=== PATIENT | male | born 1970 | race Caucasian/White ===

== ENCOUNTER → 2019-10-18 11:07 | Outpatient (CLI) | payer OTHER, SELFPAY ==
[2019-10-18 12:56] LABS: Absolute Lymphocyte Count 1.69 X10^3/uL (0.83-4.51); Absolute Neutrophil Count 3.1 X10^3/uL (2.0-7.7); Basophil# 0.03 X10^3/uL; Basophil% 0.5 % (0-1); Eosinophil# 0.11 X10^3/uL; Eosinophils% 1.9 % (0-5); Hematocrit 48.2 % (40-54); Hemoglobin 16.2 g/dL (13.0-16.5); Lymphocyte # 1.69 X10^3/ul (4.0); Lymphocyte % 29.5 % (19-41); Mean Corp Hgb Conc 33.6 g/dL (32-36); Mean Corpuscular Hgb 31.3 pg (27.0-32.0); Mean Corpuscular Volume 93.1 fL (80-94); Mean Platelet Vol. 9.5 fl (6.2-12.0); Monocyte# 0.77 X10^3/uL; Monocyte% 13.4 % (0-10); NRBC Flagged by Analyzer 0 % (0-5); Neutrophil # 3.12 X10^3/uL (2.7-7.7); Neutrophil % 54.5 % (47-70); Platelet Count 238 K/mm3 (150-450); RBC Distribution Width CV 12.9 % (11.6-14.6); Red Blood Count 5.18 M/mm3 (4.6-6.2); White Blood Count 5.7 K/mm3 (4.4-11.0)
[2019-10-18 13:20] LABS: Cholesterol 254 mg/dL (200); Creatinine, Serum 1.15 mg/dL (0.70-1.30); EST Glomerular Filtration Rate 72 mL/min (>60); Est Glom Filt Rate - Afr Amer 87 mL/min (>60); High Density Lipoprotein 53 mg/dL; Triglycerides 136 mg/dL; Very Low Density Lipoprotein 27 mg/dL (5-40)
== END ==
PROVIDERS: PCP Family Medicine; Referring Provider Family Medicine; Visit Provider Family Medicine
DX: Z00.00 Encounter for general adult medical examination without abnormal findings (principal)
CPT/HCPCS: 36415; 80061; 82565; 85025

== ENCOUNTER → 2022-10-22 | Outpatient (CLI) | payer OTHER, SELFPAY ==
--- NOTE | 2022-10-22 10:33 | RAD_ITS ---
STUDY: X-RAY CHEST REASON FOR EXAM: Male, 51 years old. COUGH TECHNIQUE: PA and lateral views of the chest. COMPARISON: None. FINDINGS: There is evidence of a left hilar mass with postobstructive pneumonitis in the left upper lobe. Correlation with a CT scan is recommended. There is no demonstrated pleural abnormality. Normal size heart. Normal mediastinum and amaris. Normal visualized pulmonary arteries. Normal visualized aortic arch and descending thoracic aorta. Normal visualized thoracic spine. Normal visualized ribs, clavicles, and shoulders. There is no demonstrated abnormality of the visualized soft tissue structures of the upper abdomen. RAD/Chest PA and Lateral IMPRESSION: Findings suggestive of a left hilar mass with postobstructive pneumonitis in the left upper lobe. CT scan correlation is recommended. Electronically Signed: Mazin Garber MD at 8:12 EDT ,
== END | disposition home or self-care (01) ==
LOC: MTRAD 10:32
PROVIDERS: PCP Family Medicine; Referring Provider Family Medicine; Visit Provider Family Medicine
DX: R05.3 Chronic cough (principal)
CPT/HCPCS: 71046

== ENCOUNTER → 2022-11-06 | Outpatient (CLI) | payer OTHER, SELFPAY ==
--- NOTE | 2022-11-06 14:17 | PFTCOMP_ITS ---
COMPLETE PULMONARY FUNCTION TEST INTERPRETATION Brief HPI: Patient is a 52-year-old male, currently under the care of Dr. Bee, who presents to [facility] for complete pulmonary function tests secondary to diagnosis of lung mass. Respiratory therapist reports good effort and reproducible results. Interpretation: Forced expiration spirometry shows no large airways obstructive ventilatory defect with an FEV1 of 78% predicted. There is no significant bronchodilator response by strict ATS criteria. Spirograms are of good quality and plateau normally. The respiratory flow volume loop shows a normal pattern. Lung volumes by body plethysmography show a slightly decreased total lung c apacity at 5.71 L, 81% predicted. All other lung volumes are reduced symmetrically. Diffusion capacity by carbon monoxide is normal at 101% predicted. The airway resistance is normal. No previous pulmonary function tests were available for review. Impression: Mild restrictive ventilatory defect with relatively preserved diffusion capacity
== END | disposition home or self-care (01) ==
LOC: PSN 08:12
PROVIDERS: PCP Family Medicine; Referring Provider Internal Medicine; Visit Provider Internal Medicine
DX: E27.8 Other specified disorders of adrenal gland (principal); R91.8 Other nonspecific abnormal finding of lung field; R05.3 Chronic cough; J45.909 Unspecified asthma, uncomplicated
CPT/HCPCS: 94060; 94726; 94729

== ENCOUNTER → 2022-11-13 | Outpatient (CLI) | payer OTHER, SELFPAY ==
[2022-11-13] VITALS (10 sets, daily range): BP systolic 116–144; BP diastolic 79–107; PULSE 83–94; RESP 14–28; TEMP 36.2; O2SAT 94–98; BMI 30.2
--- NOTE | 2022-11-13 | ASPIGT_PTH ---
PATIENT: BASILIO GOSS LOC: [place] U#:[id number] AGE/SX: 52/M ROOM: RE11/13/[address]: Dr. Denis Bee MD : 1970 BED: DIS: 11/13/2022 SPEC #: [id number] RECD: 11/13/22 11:37 STATUS: ARAM REÁlvaro #: [id number] ARSALAN: 11/13/22 00:[address]: Denis Bee DEPT: SURGICAL PATHOLOGY RECD BY: Praful Cisneros ENTERED: 11/13/22 11:38 SP TYPE: ASP RAD OTHR DR: Dr. Av Barros MD Tissues: Adrenal gland, NOS Procedures: FNA Specimen Adequacy Special Stain Group II Surgery Specimen Level IV Imprint (control) HEADER OPERATION: Right adrenal mass, CT-guided biopsy PRE-OP DIAGNOSIS: Adrenal mass TISSUE SUBMITTED: Adrenal mass MICROSCOPIC DIAGNOSIS Adrenal mass, CT-guided core biopsy: Non-small cell carcinoma with extensive necrosis, favor metastatic adenocarcinoma, consistent with lung primary. See comment. SJ:joceline 11/14/2022 COMMENT The specimen is evaluated at the time of biopsy by Dr. Witt. Immediate Evaluation = Malignant cells present derived from non-small cell carcinoma. Extensive necrosis is also noted. Correlation with clinical, radiologic findings and appropriate follow up are necessary. Immunohistochemistry ([id number]) supports the above diagnosis. Molecular studies on the tumor can be performed, please notify the laboratory, if needed. Case has been reviewed in consultation with Dr. Watson who concurs with the above diagnosis. IDC:AM MICROSCOPIC DESCRIPTION Slides are reviewed. GROSS DESCRIPTION Received in fixative is one container labeled with the patient's name and designated adrenal mass. The specimen consists of multiple irregular and elongated fragments of cuello soft that in aggregate measure 1.2 x 0.3 x <0.1 cm. The specimen is totally submitted in one cassette. / AM:joceline 11/13/2022 TC:0 [facility]: [id number], [id number] ADDENDUM ADDENDUM ADDENDUM ADDENDUM ADDENDUM ADDENDUM ADDENDUM ADDENDUM ADDENDUM ADDENDUM ADDENDUM ADDENDUM 12/09/2022 12:06 ADDENDUM 12/09/2022 12:06 ADDENDUM 12/09/2022 12:06 ADDENDUM 12/09/2022 12:06 ADDENDUM 12/09/2022 12:06 PD-L1 (KEYTRUDA) IMMUNOHISTOCHEMICAL ANALYSIS FROM [employer] RESULTS: Tumor proportion score: <1% / Negative ONKOSIGHT NGS GENE FUSION PANEL FROM [employer] INTERPRETATION: NEGATIVE: No pathogenic gene fusions detected involving ALK, EVELYN, BRAF, CCND1, EGFR, FGFR1, FGFR2, FGFR3, MET, NRG1, NTRK1, NTRK2, NTRK3, PPARG, RAF1, RET, ROS1 or THADA. Please see complete report in e-chart or EMR
--- NOTE | 2022-11-13 | IMM_PTH ---
PATIENT: BASILIO GOSS LOC: [place] U#:[id number] AGE/SX: 52/M ROOM: RE11/13/[address]: Dr. Denis eBe MD : 1970 BED: DIS: 11/13/2022 SPEC #: [id number] RECD: 11/13/22 13:43 STATUS: ARAM REQ #: [id number] ARSALAN: 11/13/22 00:[address]: Denis Bee DEPT: IMMUNOHISTOCHEMISTRY RECD BY: Ondina Farrell ENTERED: 11/13/22 13:44 SP TYPE: IMMUNO OTHR DR: Dr. Av Barros MD Tissues: Adrenal gland, NOS Procedures: RCC (add) NAPSIN A (add) CK20 (add) CK5-6 (add) CK7 (add) CK8 (add) HEP PAR (add) TTF1 (add) Pankeratin (initial) P40 (add) PSAP (add) PHYSICIAN & [address] [id number] SPECIMEN INFORMATION: Tissue Source: Right adrenal mass Clinical Info: Right adrenal mass Specimen Number: [id number] CPT code: 27860, 56312 x10 METHODOLOGY: Deparaffinized sections of prefer/formalin-fixed tissue or PAP/DQ stained slides are incubated with monoclonal/polyclonal antibodies/oligonucleotide probes. Localization is made via biotin free immunoperoxidase method. Appropriate controls are performed and reacted as expected. Results on target cell population are indicated in the following table: RESULTS: ANTIBODY / CLONE RESULT AE1-3 (AE1/AE3/PCK26) positive CK7 (OV-TL12/30) positive, rare cells CK8 (48xvrjD85) positive CK20 (KS20.8) negative TTF-1 (8G7G3/1) positive Napsin A (Rabbit Polyclonal) negative HepPar (OCh1E5) negative RCC (PN-15) negative PSAP (PASE/4LJ) negative CK5-6 (D5 & 1684) negative P40 (BC28) positive, rare cells These tests were developed and their performance characteristics determined by [facility]. They may not have been cleared or approved by the U.S. Food and Drug Administration. The FDA has determined that such clearance or approval is not necessary. The above immunohistochemical/dualISH markers are ordered and reviewed by the Pathologist. INTERPRETATION: Right adrenal mass, CT-guided biopsy: Non-small cell carcinoma with extensive necrosis, favor adenocarcinoma consistent with lung primary. SJ:joceline 11/14/2022 Case has been reviewed in consultation with Dr. Watson who concurs with the above diagnosis. IDC:[id number]
[2022-11-13 09:13] LABS: Platelet Count 306 K/mm3 (150-450)
--- NOTE | 2022-11-13 09:14 | CT_ITS ---
PROCEDURE: CT GUIDED biopsy of the right adrenal gland. DATE: November 13, 2022. INDICATION: Male, 52 years old. Right adrenal mass. PHYSICIAN: Mazin Garber M.D. RADIATION DOSAGE (If Supplied By Facility): CTDIvol = ( 20.38 ) mGy, DLP = ( 837.7 ) mGycm. Individualized dose optimization techniques were utilized. PROCEDURE: The risks, benefits, and alternatives to the procedure were explained to the patient. The specific risk of hemorrhage requiring further treatment or intervention was detailed and accepted. Follow-up instructions were discussed with the patient as well. Written informed consent was obtained. The patient was brought into the CT suite and placed in the supine position. . An appropriate entry site was identified. The overlying skin was prepped and draped in the usual sterile fashion. 1% lidocaine was administered subcutaneously for local anesthesia. Conscious sedation was performed. The patient received 3 mg of Versed and 75 mcg of fentanyl intravenously. Conscious sedation was started at 10:44 AM and terminated at 11:23 AM. The patient was independently monitored by the department nurse. Under CT guidance, a total of 5 passes were performed utilizing an 18-gauge core biopsy needle. The specimens were then placed in the appropriate fluid and transported to the laboratory for analysis. Hemostasis was obtained. The patient tolerated the procedure well without immediate complications. CT/Biopsy/Inj or Needle Placement IMPRESSION: Successful CT guided biopsy of the right adrenal gland, as described above. The conscious sedation protocol was followed. Electronically Signed: Mazin Garber MD at 12:33 EDT ,
[2022-11-13 09:22] LABS: International Normalized Ratio 1.1; Prothrombin Time (Protime)PT. 13.7 SECONDS (11.7-14.9)
[2022-11-13 09:23] LABS: Partial Thromboplast Time 34.9 Seconds (24.1-36.2)
[2022-11-13] MEDS: Midazolam 2 MG/2 ML Syringe IV ×2 (10:44→11:12)
[2022-11-13] MEDS: fentaNYL 100 MCG/2 ML Ampul IV ×3 (10:46→11:18)
[2022-11-13] MEDS: Lidocaine 2% (20 ml mdv) 20 ML Vial INFILT (11:12)
== END | disposition home or self-care (01) ==
PROVIDERS: PCP Family Medicine; Referring Provider Internal Medicine; Visit Provider Internal Medicine
DX: E27.8 Other specified disorders of adrenal gland (principal); R91.8 Other nonspecific abnormal finding of lung field; R05.3 Chronic cough
CPT/HCPCS: 49180; 36415; 77012; 85049; 85610; 85730; 88172; 88305; 88313; 88341; 88342; 99156; 99157; J7050; A4216

== ENCOUNTER → 2022-12-18 | Outpatient (CLI) | payer OTHER, SELFPAY ==
--- NOTE | 2022-12-18 12:38 | MRI_ITS ---
HISTORY: STAGING NSCLC. TECHNIQUE: Multiplanar and multisequence MR images of the brain were obtained before and after the intravenous administration of 20 mL Clariscan. 692 images. COMPARISON: None. FINDINGS: BRAIN PARENCHYMA: 3 x 5 mm nodular enhancing lesion with mild surrounding edema in the right occipital lobe best seen on image 4 of series 11 and image 53 of series 12. No abnormal focus of restricted diffusion. No acute intracranial hemorrhage identified. CSF SPACES: Cerebral ventricles, cortical sulci, and other extra-axial CSF spaces within normal limits in size for age. No significant midline shift or other mass effect.No extra-axial fluid collection. VASCULAR SYSTEM: Major intracranial flow voids are maintained. PARANASAL SINUSES AND MASTOID AIR CELLS: No significant air fluid levels. ORBITS: Symmetric contents. MRI/Brain W/WO Contrast IMPRESSION: Small enhancing lesion in the right occipital lobe, suspicious for metastasis. Electronically Signed: Nimco Hilario MD at 13:56 EDT ,
== END | disposition home or self-care (01) ==
LOC: MRI 12:37
PROVIDERS: PCP Family Medicine; Referring Provider Internal Medicine Hematology & Oncology; Visit Provider Internal Medicine Hematology & Oncology
DX: C34.92 Malignant neoplasm of unspecified part of left bronchus or lung (principal); C79.70 Secondary malignant neoplasm of unspecified adrenal gland; C34.12 Malignant neoplasm of upper lobe, left bronchus or lung; C77.9 Secondary and unspecified malignant neoplasm of lymph node, unspecified
CPT/HCPCS: 70553; A9575

== ENCOUNTER 2022-12-25 09:21 | Day surgery (SDC) | payer OTHER, SELFPAY ==
[2022-12-25 09:42] VITALS: BP 160/108; PULSE 117; RESP 16; TEMP 36.7; O2SAT 96; BMI 27.6
[2022-12-25] MEDS: Lactated Ringers 1,000 ML 15 ML IV (10:06)
--- NOTE | 2022-12-25 10:11 | HP.PCM_ITS ---
History and Physical Date of Admission: 12/25/22 Date of Service:? 12/13/22 MR#: [id number] Acct: [id number] Name:BASILIO GAYLE Rep #: [id number] : 1970 ? ? Provider: Dr. Pratima Atkins MD Age/Sex:? 52/M ? ? Location: [facility] Status: Signed Intake Vital Signs ? 12/13/2314:05 Height 5 ft 11 in Weight: 207 lb BMI 28.8 BP 141/87 H Blood Pressure Location Lt brachial Position Sitting Respiration 16 Pulse 110 H Pulse Oximetry (%) 96 Oxygen Delivery Method room air Intake Visit Reasons:?PORT PLACEMENT Chief Complaint: port placement [employer] Required: No Is patient in pain?: No Allergies No Known Allergies Allergy (Verified 12/13/22 15:06) Medications dexamethasone 4 mg tablet 4 mg PO .COMPLEX #6 tabs 12/11/22 [Rx Confirmed 12/13/22] folic acid 1 mg tablet 1 mg PO DAILY #90 tabs 12/11/22 [Rx Confirmed 12/13/22] ibuprofen 200 mg tablet (Advil) 200 mg PO Q6H PRN 12/11/22 [History Confirmed 12/13/22] lidocaine-prilocaine 2.5 %-2.5 % topical cream 1 applic topical ONCE PRN port access 30 days #30 grams 12/11/22 [Rx Confirmed 12/13/22] omeprazole 20 mg capsule,delayed release 20 mg PO DAILY #30 caps 12/11/22 [Rx Confirmed 12/13/22] ondansetron 8 mg disintegrating tablet 8 mg PO Q8H PRN nausea and vomiting #30 tabs 12/11/22 [Rx Confirmed 12/13/22] PFSH Medical History? Adenocarcinoma of lung, stage 4 Apnea, sleep Arthritis Asthma Benign skin mole Cancer of left lung Chest pain Chondrosternal sprain Chronic coughing Diastolic hypertension Encounter for education Fatty tumor Hypercholesteremia Keratosis pilaris Lipoma Low serum HDL 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 to bone Regional lymph node metastasis present Family History? Aunt Cancer ?? ? paternal - unknown typeSister Lymphoma ?? ? T-cell Non Hodgkin's Social History? household members:? spouse Smoking Status:? Former smoker Tobacco: How many years used:? 8 how long ago did patient quit smoking:? quit 30 years ago HPI HPI HPI: 52-year-old male presents to discuss port placement due to stage IV adenocarcinoma of the lung.? Patient's treatment is planned to start on December 26.? Patient would like to have port placed after if possible. ROS General General: Yes weight change; No appetite, fatigue, colon cancer, breast cancer or weakness HEENT HEENT: No difficulty swallowing, eye injury, eye surgery, swollen glands or hoarseness Endo Endocrine: No thyroid disease, diabetes mellitus, thyroid cancer, Hair loss, heat intolerance or cold intolerance Skin Skin: No rash or changing moles Breast Breast: No left breast lump, right breast lump, nipple discharge, breast pain, abnormal mammogram, abnormal US or breast enlargement Musc Musculoskeletal: Yes back problems; No arthritis, rheumatoid arthritis, gout or joint pain Cardio Cardiovascular: No murmur, pacemaker, heart disease, atrial fibrillation, high blood pressure, heart attack, heart stent, palpitations, shortness of breat with exertion or chest pain Psych Psychiatric: No depression, anxiety or hearing voices Resp Respiratory: Yes shortness of breath, Yes sleep apnea, Yes cough, No COPD, No asthma, No emphysema and No wheezing Gastro Gastrointestinal: No abdominal pain, No nausea or vomiting, No diarrhea, No constipation, No blood in stool, No acid reflux, No hemorrhoids, No ulcers, No gallbladder problem and No black,tarry stools Kin Hematologic: No blood thinners, No blood disorders, No bleeding, No anemia and No blood clots Neuro Neurologic: No system reviewed and no additional complaints, except as documented, No as per HPI, No abnormal gait, No abnormal hearing, No abnormal movements, No abnormal speech, No behavioral changes, No burning sensations, No confusion, No convulsions, No disequilibrium, No dizziness, No localized weakness, No frequent falls, No headache(s), No lack of coordination, No loss of vision, No memory loss, No numbness, No other visual disturbances, No radicular pain, No restless legs, No sensory deficit, No syncope, No tingling, No tremor(s), No weakness and No other Exam Const General: cooperative, healthy appearing and no acute distress [facility] Head: normal to inspection Neck Neck: supple Chest Other: Normal palpation to bilateral upper chest Resp Effort & Inspection: normal respiratory effort Cardio Rate: regular rate Skin General: no rashes or lesions noted Neuro General: patient oriented x3 Extrem General: no clubbing, cyanosis or edema Psych Affect: normal affect Assessment and Plan Assessment and Plan (1) Encounter for insertion of venous access port: ?Status:?Acute (2) Adenocarcinoma of lung, stage 4: ?Status:?Acute Plan I have discussed above with the patient- Port-a-Cath placement.? Left possible right IJ.? We will plan for after as patient does not start treatment until December 26. Patient has been counseled as to the risks/benefits of the procedure. I have explained the risks of the surgery, including but not limited to: infection, bleeding, injury to any blood vessels/nerves, injury to lungs (such as pneumothorax or hemothorax and need for chest tube), not having any access, nonfunctioning of port due to thrombosis, infection of port, etc.? the patient understands and agrees to proceed. I have answered all the patient's questions to the patient?s satisfaction and the patient has no further questions. Pratima Atkins M.D. Pager: [phone] [facility] [address] [place] [address], [address] [place] [address] Office: [phone] Coding Level of Care Code Off vis,new,level 3 Diagnoses Encounter for insertion of venous access port? Z45.2 Adenocarcinoma of lung, stage 4? C34.90 12/13/22 1516 <Electronically signed by Pratima Atkins MD> Date Pratima Atkins MD
--- NOTE | 2022-12-25 10:16 | EKG12_ITS ---
Test Reason : PRE-OP Blood Pressure : / mmHG Vent. Rate : 119 BPM Atrial Rate : 119 BPM P-R Int : 144 ms QRS Dur : 080 ms QT Int : 310 ms P-R-T Axes : 034 026 023 degrees QTc Int : 436 ms Sinus tachycardia Otherwise normal ECG When compared with ECG of 16-DEC-2011 20:18, Vent. rate has increased BY 43 BPM Confirmed by RASHARD VILLAGOMEZ, CHRISTINA ([id number]), avid editor KAREN VIZCARRA ([id number]) on 12/31/2022 9:10:08 AM Referred By: Pratima Atkins Confirmed By:CHRISTINA WETZEL MD
[2022-12-25] MEDS: Cefazolin 2 GM in 0.9% Normal Saline 100 ML IV (11:08)
[2022-12-25] MEDS: Bupivacaine Mpf 0.5% 30 ML VIAL (11:52)
[2022-12-25] MEDS: Lidocaine 1% /Epi 1:100 (20ml) 20 ML Vial OPERA.SITE (11:53)
--- NOTE | 2022-12-25 11:55 | PCM.OPRPT ---
Report of Operation Date of Procedure: 12/25/22 Pre-Operative Diagnosis: z45.2, metastatic lung cancer Post-Operative Diagnosis: Same Surgery/Procedure Performed:: 1. Placement of left IJ Port-A-Cath 2. Use of ultrasound 3. use of fluoroscopy Surgeon: Pratima Atkins Type of Anesthesia: Local MAC Anesthesiologist: Cong Bergeron Special Medications: Ancef 2 g IV x1 Specimen's removed: None Estimated Blood Loss (mL): < 10 cc Description of Procedure: After informed consent was given, the patient was brought to the operating room and placed in the supine position. Appropriate time out protocol was followed. Patient was then given IV conscious sedation for anesthesia. The patient's left upper chest and neck were then prepped with a surgical skin preparation and sterile surgical drapes were placed. After proper landmarks were ascertained, the skin at the upper left chest area was then infiltrated with 1:1 mixture of 1% lidocaine with epinephrine and 0.5% marcaine. A needle trocar was then inserted into the left I would internal jugular vein with ultrasound guidance-multiple vessels were viewed with u/s and the left IJ was chosen-- and there was good aspiration of venous blood. A wire was then threaded into the needle trocar and this was visualized under fluoroscopy to ensure that the wire was in the superior vena cava. Once this was done, then the needle trocar was removed. A small skin franky was made with an 11 blade knife at the wire entrance site. The dilator with the introducer sheath attached was then placed over the wire into the left internal jugular vein via the Seldinger technique and this was visualized under fluoroscopy. The dilator and sheath were in proper position as visualized by fluoroscopy. A subcutaneous pocket was then created caudad to the catheter insertion site. A transverse skin incision was made after the skin and subcutaneous tissues were infiltrated with local anesthetic. Blunt dissection was then used to create a space large enough for placement of the subcutaneous port. The catheter was then tunneled into the subcutaneous pocket. The wire and dilator were then removed. The catheter was then threaded into the introducer sheath and was positioned with its tip at the junction of the superior vena cava and the right atrium as visualized under fluoroscopy. The excess catheter was transected. The catheter was then attached to the subcutaneous port using manufacturers guidelines. The catheter was flushed with a heparin saline mixture prior to placement. Hemostasis was carefully controlled with electrocautery. The port was sutured to the subcutaneous fascia using 2-0 Vicryl suture at two sites. The port was then placed in the subcutaneous pocket. The incision were reapproximated with interrupted subdermal 3-0 vicryl sutures. The skin was reapproximated with 3-0 nylon suture in a interrupted fashion. Steristrips were used for reinforcement of the skin closure at IJ insertion site and a sterile opsite dressings were applied. Port was accessed prior to leaving the OR. Both ports flushed and tesha well. The patient tolerated the procedure well. Grafts/Implants Used: Bard PowerPort isp M.R.I. 8Fr Lot [id number] Complications none
--- NOTE | 2022-12-25 11:58 | DCINST_ITS ---
Discharge Instructions Procedure Port-A-Cath Diet Discharge Diet: Light diet - advance as tolerated Activity May shower in (days): 5 (Keep port site clean and dry x5 days. Neck incision okay to get wet after 1 day. Okay to lower shower and upper sponge bath. OR okay to taper off port site with a Ziploc bag to shower) Lifting Restrictions: No lifting > 15 pounds for 3 days with the arm on the side of the port Dressing / Incision Call your doctor if your incision/area has: Continuous Slow Oozing, Sudden Increased Bleeding, Increased Pain/ Swelling, Increased Redness, Foul Smelling Discharge and Swelling at the incision site Call your doctor if you observe: Fever of 101 or Higher Change Dressing in: 2 days (2-3 days- port site; ok to remove neck opsite in 1 day) Follow Up Care Please Follow Up With: Pratima Atkins MD When: In 10 days for permanent suture removal?call office for appointment Test Results: Test results from this visit will be discussed in further detail at your follow- up appointment, if applicable. Discharge Plan Admission Attending Provider: Pratima Atkins Primary Care Provider: Av Barros Discharge Orders/Prescriptions Prescriptions: New oxycodone-acetaminophen 5-325 mg tablet 1 tab PO Q6H PRN (Reason: pain) 2 Days Qty: 6 0RF Continued ibuprofen [Advil] 200 mg tablet 200 mg PO Q6H PRN (Reason: Pain) lidocaine-prilocaine 2.5-2.5 % cream 1 applic topical ONCE PRN (Reason: port access) 30 Days Qty: 30 2RF omeprazole 20 mg capsule,delayed release(DR/EC) 20 mg PO DAILY Qty: 30 0RF dexamethasone 4 mg tablet 4 mg PO .COMPLEX Qty: 6 5RF Rx Instructions: Take 4 mg orally; twice daily the day before, day of and day after chemoth erapy ONLY ondansetron 8 mg tablet,disintegrating 8 mg PO Q8H PRN (Reason: nausea and vomiting) Qty: 30 2RF folic acid 1 mg tablet 1 mg PO DAILY Qty: 90 1RF hydrocodone-acetaminophen 5-325 mg Tablet 1 tab PO Q6H PRN (Reason: Pain) albuterol sulfate 90 mcg/actuation Hfa Aerosol Inhaler 1 inh INHALATION Q6H PRN (Reason: SOB) tizanidine 4 mg Capsule 4 mg PO QHS Referrals / Follow Up: Av Barros MD [Primary Care Provider] - Disposition Disposition (needs filled in before D/C Order can be placed): Home, Self Care
[2022-12-25 12:06] VITALS: BP 144/98; BP 160/108; PULSE 116; RESP 16; TEMP 37.5; O2SAT 97
[2022-12-25 12:10] VITALS: BP 137/125; BP 160/108; PULSE 118; RESP 16; O2SAT 97
[2022-12-25 12:15] VITALS: BP 138/107; BP 160/108; PULSE 115; RESP 16; O2SAT 95
--- NOTE | 2022-12-25 12:15 | RAD_ITS ---
STUDY: X-RAY CHEST REASON FOR EXAM: Male, 52 years old. Port -- pacu TECHNIQUE: Single AP portable view of the chest. COMPARISON: Comparison is made with prior study dated October 22, 2022. FINDINGS: A left-sided shital catheter has been placed with the tip at the junction of the superior vena cava and right atrium. Near complete opacification of the left hemithorax. Normal size heart. Normal mediastinum and amaris. Normal visualized pulmonary arteries. Normal visualized aortic arch and descending thoracic aorta. Normal visualized thoracic spine. Healed right rib fractures. There is no demonstrated abnormality of the visualized soft tissue structures of the upper abdomen. RAD/Chest 1 View (Portable) IMPRESSION: The tip of the left shital catheter is at the junction of the superior vena cava and right atrium. Almost complete opacification of the left hemithorax. Electronically Signed: Mazin Garber MD at 12:35 EDT ,
[2022-12-25 12:20] VITALS: BP 152/106; BP 160/108; PULSE 118; RESP 16; TEMP 37.9; O2SAT 96
[2022-12-25 13:25] VITALS: BP 160/108
--- NOTE | 2022-12-25 13:25 | SUR.PHASEII ---
Per pt's family Dr. Atkins did not speak with family after surgery. Call made to Dr. Atkins who states she will call them afterwards.
== END 2022-12-25 13:20 | disposition home or self-care (01) ==
LOC: SDC 09:21 → AC 09:22
PROVIDERS: PCP Family Medicine; Referring Provider Surgery; Visit Provider Surgery
PROC: (CPT 36561; principal; 2022-12-25 10:45)
DX: Z45.2 Encounter for adjustment and management of vascular access device (principal); C34.90 Malignant neoplasm of unspecified part of unspecified bronchus or lung; Z87.891 Personal history of nicotine dependence; G47.30 Sleep apnea, unspecified
CPT/HCPCS: 36561; 00532; 71045; 77001; 93005; J7120; C1788; J2405

== ENCOUNTER → 2023-01-01 | Outpatient (CLI) | payer OTHER, SELFPAY | END | disposition home or self-care (01) | LOC: LABSPEC 16:28 | PROVIDERS: PCP Family Medicine; Referring Provider Surgery; Visit Provider Surgery | DX: T80.219A Unspecified infection due to central venous catheter, initial encounter (principal) | CPT/HCPCS: 87070; 87075; 87205 ==

== ENCOUNTER 2023-01-17 09:34 | Day surgery (SDC) | payer OTHER, SELFPAY ==
[2023-01-17] VITALS (7 sets, daily range): BP systolic 107–120; BP diastolic 71–88; PULSE 108–123; RESP 16–24; TEMP 36.2; O2SAT 89–94; BMI 25.2
[2023-01-17] MEDS: Lactated Ringers 1,000 ML 15 ML IV (10:29)
--- NOTE | 2023-01-17 11:21 | PCM.HP.BLA ---
History and Physical Date of Admission: 01/17/23 Date of Service:? 01/15/23 MR#: [id number] Acct: [id number] Name:BASILIO GAYLE Rep #: [id number] : 1970 ? ? Provider: Dr. Pratima Atkins MD Age/Sex:? 52/M ? ? Location: [facility] Status: Signed Intake Vital Signs ? 01/07/2309:41 01/15/2310:24 Height 5 ft 11 in 5 ft 11 in Weight: ? 182 lb BMI ? 25.4 BP ? 133/92 H Respiration ? 18 Pulse Oximetry (%) ? 96 Oxygen Delivery Method ? 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: No Is patient in pain?: No Allergies No Known Allergies Allergy (Verified 01/15/23 10:26) Medications dexamethasone 4 mg tablet 4 mg PO .COMPLEX #6 tabs 12/11/22 [Rx Confirmed 01/15/23] folic acid 1 mg tablet 1 mg PO DAILY #90 tabs 12/11/22 [Rx Confirmed 01/15/23] ibuprofen 200 mg tablet (Advil) 200 mg PO Q6H PRN Pain 12/11/22 [History Confirmed 01/15/23] lidocaine-prilocaine 2.5 %-2.5 % topical cream 1 applic topical ONCE PRN port access 30 days #30 grams 12/11/22 [Rx Confirmed 01/15/23] omeprazole 20 mg capsule,delayed release 20 mg PO DAILY #30 caps 12/11/22 [Rx Confirmed 01/15/23] ondansetron 8 mg disintegrating tablet 8 mg PO Q8H PRN nausea and vomiting #30 tabs 12/11/22 [Rx Confirmed 01/15/23] albuterol sulfate 90 mcg/actuation aerosol inhaler 1 inh inhalation Q6H PRN SOB 12/18/22 [History Confirmed 01/15/23] hydrocodone-acetaminophen 5-325mg 5mg-325mg 1 tab PO Q6H PRN Pain 12/18/22 [History Confirmed 01/15/23] oxycodone-acetaminophen 5 mg-325 mg tablet 1 tab PO Q6H PRN pain 2 days #6 tabs 12/25/22 [Rx Confirmed 01/15/23] acyclovir 800 mg tablet 800 mg PO Q6H #60 tabs 01/07/23 [Rx Confirmed 01/15/23] fentanyl 12 mcg/hr transdermal patch 1 patch transdermal 01/15/23 [History Confirmed 01/15/23] PFSH Medical History? Adenocarcinoma of lung, stage 4 Alcohol use Apnea, sleep Arthritis Asthma Back pain Benign skin mole Cancer of left lung Chondrosternal sprain Chronic coughing CINV (chemotherapy-induced nausea and vomiting) Diastolic hypertension Encounter for education Fatty tumor Former smoker Herpes zoster Hoarseness Hypercholesteremia Hyponatremia Keratosis pilaris Lipoma Low serum HDL Maculopapular rash 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 Rapid weight loss Regional lymph node metastasis present Shortness of breath on exertion Stomatitis Family History? Aunt Cancer ?? ? paternal - unknown typeSister Lymphoma ?? ? T-cell Non Hodgkin's Social History? household members:? spouse Smoking Status:? Former smoker Tobacco: How many years used:? 8 how long ago did patient quit smoking:? quit 30 years ago HPI HPI HPI: 52-year-old male presents for suture removal after port removal due to possible infection.? Patient is scheduled to have chemotherapy tomorrow.? Patient states he does not want to go through with chemotherapy through peripherally and wants a port placed prior to that.? Patient's culture did not show any growth organisms question. ROS General General: No weight change, appetite, fatigue, colon cancer, breast cancer or weakness HEENT HEENT: No difficulty swallowing, eye injury, eye surgery, swollen glands or hoarseness Endo Endocrine: No thyroid disease, diabetes mellitus, thyroid cancer, Hair loss, heat intolerance or cold intolerance Skin Skin: No rash or changing moles Breast Breast: No left breast lump, right breast lump, nipple discharge, breast pain, abnormal mammogram, abnormal US or breast enlargement Musc Musculoskeletal: No back problems, arthritis, rheumatoid arthritis, gout or joint pain Cardio Cardiovascular: No murmur, pacemaker, heart disease, atrial fibrillation, high blood pressure, heart attack, heart stent, palpitations, shortness of breat with exertion or chest pain Psych Psychiatric: No depression, anxiety or hearing voices Resp Respiratory: No shortness of breath, No sleep apnea, No cough, No COPD, No asthma, No emphysema and No wheezing Gastro Gastrointestinal: No abdominal pain, No nausea or vomiting, No diarrhea, No constipation, No blood in stool, No acid reflux, No hemorrhoids, No ulcers, No gallbladder problem and No black,tarry stools Kin Hematologic: No blood thinners, No blood disorders, No bleeding, No anemia and No blood clots Neuro Neurologic: No system reviewed and no additional complaints, except as documented, No as per HPI, No abnormal gait, No abnormal hearing, No abnormal movements, No abnormal speech, No behavioral changes, No burning sensations, No confusion, No convulsions, No disequilibrium, No dizziness, No localized weakness, No frequent falls, No headache(s), No lack of coordination, No loss of vision, No memory loss, No numbness, No other visual disturbances, No radicular pain, No restless legs, No sensory deficit, No syncope, No tingling, No tremor(s), No weakness and No other Exam Const General: cooperative, healthy appearing, comfortable and no acute distress Neck Other: Left neck incision well-healed no signs of infection Chest Other: Left chest incision well-healed permanent sutures in place?removed in office.? No signs of infection Assessment and Plan Assessment and Plan (1) Encounter for insertion of venous access port: ?Status:?Acute (2) Adenocarcinoma of lung, stage 4: ?Status:?Acute Plan I have discussed above with the patient- Port-a-Cath placement.? Right IJ?we will plan to avoid Vicryl is unsure if this was reaction to be Vicryl with a suture granuloma as no organisms were seen on cultures.? Did leave the 1 suture in the left IJ position patient did state that area did get red but it is currently not erythematous or tender. Patient has been counseled as to the risks/benefits of the procedure. I have explained the risks of the surgery, including but not limited to: infection, bleeding, injury to any blood vessels/nerves, injury to lungs (such as pneumothorax or hemothorax and need for chest tube), not having any access, nonfunctioning of port due to thrombosis, infection of port, etc.? the patient understands and agrees to proceed. I have answered all the patient's questions to the patient?s satisfaction and the patient has no further questions. Pratima Atkins M.D. Pager: [phone] [facility] [address] [place] [address], [address] [place] [address] Office: [phone] Coding Level of Care Code Off vis,est,level 3 Diagnoses Encounter for insertion of venous access port? Z45.2 Adenocarcinoma of lung, stage 4? C34.90 01/16/23 0856 <Electronically signed by Pratima Atkins MD> Date Pratima Atkins MD
[2023-01-17] MEDS: Cefazolin 2 GM in 0.9% Normal Saline 100 ML IV (11:41)
--- NOTE | 2023-01-17 11:50 | RAD_ITS ---
PROCEDURE: Port insertion DATE OF EXAMINATION: 01/17/2023 INDICATION: Male, 52 years old. History of lung carcinoma PHYSICIAN: Dr. Atkins FLUOROSCOPY TIME (if supplied): (0:14) minutes/seconds, 1 intraoperative C-arm film obtained RADIATION DOSAGE (If Supplied By Facility): CTDIvol = ( ) mGy, DLP = ( ) mGycm CONSENT: The risks, benefits and alternatives to the procedure were explained to the patient, and the patient agreed to the procedure and signed the consent. 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 PROCEDURE/TECHNIQUE: (All elements of maximal sterile barrier technique followed, including US elements as applicable) The risks, benefits, and alternatives to the procedure were explained to patient, and the patient agreed to the procedure and signed a consent form for the procedure. A timeout was performed to confirm the patient''s identity, the type of procedure, to be performed and the site of entry. Fluoroscopy was provided for Dr. Atkins to insert a right subclavian port. No intraoperative complications are noted. RAD/O.R. Fluoro for CVP/PICC/PORT IMPRESSION: No intraoperative complications noted during right subclavian port insertion Electronically Signed: Miguelito Mullins MD at 14:45 EDT ,
[2023-01-17] MEDS: Bupivacaine 0.5% PF 10 ML VIAL (12:00)
[2023-01-17] MEDS: Lidocaine 1% /Epi 1:100 (20ml) 20 ML Vial (12:00)
--- NOTE | 2023-01-17 12:24 | PCM.OPRPT ---
Report of Operation Date of Procedure: 01/17/23 Pre-Operative Diagnosis: Z45.2, stage IV lung cancer Post-Operative Diagnosis: Same Surgery/Procedure Performed:: Insertion of right IJ Port-A-Cath Use of fluoroscopy Use of ultrasound Surgeon: Pratima Atkins Type of Anesthesia: Local MAC Anesthesiologist: Ricco Coats Special Medications: Ancef 2 g IV x1 Estimated Blood Loss (mL): < 10 cc Description of Procedure: After informed consent was given, the patient was brought to the operating room and placed in the supine position. Appropriate time out protocol was followed. Patient was then given IV conscious sedation for anesthesia. The patient's right upper chest and neck were then prepped with a surgical skin preparation and sterile surgical drapes were placed. After proper landmarks were ascertained, the skin at the upper right chest area was then infiltrated with 1:1 mixture of 1% lidocaine with epinephrine and 0.5% marcaine. A needle trocar was then inserted into the right internal jugular vein with ultrasound guidance-multiple vessels were viewed with u/s and the right IJ was chosen-- and there was good aspiration of venous blood. A wire was then threaded into the needle trocar and this was visualized under fluoroscopy to ensure that the wire was in the superior vena cava. Once this was done, then the needle trocar was removed. A small skin franky was made with an 11 blade knife at the wire entrance site. The dilator with the introducer sheath attached was then placed over the wire into the right internal jugular vein via the Seldinger technique and this was visualized under fluoroscopy. The dilator and sheath were in proper position as visualized by fluoroscopy. A subcutaneous pocket was then created caudad to the catheter insertion site. A transverse skin incision was made after the skin and subcutaneous tissues were infiltrated with local anesthetic. Blunt dissection was then used to create a space large enough for placement of the subcutaneous port. The catheter was then tunneled into the subcutaneous pocket. The wire and dilator were then removed. The catheter was then threaded into the introducer sheath and was positioned with its tip at the junction of the superior vena cava and the right atrium as visualized under fluoroscopy. The excess catheter was transected. The catheter was then attached to the subcutaneous port using manufacturers guidelines. The catheter was flushed with a heparin saline mixture prior to placement. Hemostasis was carefully controlled with electrocautery. The port was sutured to the subcutaneous fascia using 3-0 Monocryl suture at two sites. The port was then placed in the subcutaneous pocket. The incision were reapproximated with interrupted subdermal 4-0 Monocryl sutures. The skin was reapproximated with 3-0 nylon suture in a interrupted fashion. Steristrips were used for reinforcement of the skin closure at IJ insertion site and a sterile opsite dressings were applied. The patient tolerated the procedure well. Grafts/Implants Used: Bard PowerPort isp M.R.I. 6Fr Lot [id number]
--- NOTE | 2023-01-17 12:27 | DCINST_ITS ---
Discharge Instructions Procedure Port-A-Cath Diet Discharge Diet: Light diet - advance as tolerated Activity May shower in (days): 5 (Keep port site clean and dry x5 days. Neck incision okay to get wet after 1 day. Okay to lower shower and upper sponge bath. OR okay to taper off port site with a Ziploc bag to shower) Lifting Restrictions: No lifting > 15 pounds for 3 days with the arm on the side of the port Dressing / Incision Call your doctor if your incision/area has: Continuous Slow Oozing, Sudden Increased Bleeding, Increased Pain/ Swelling, Increased Redness, Foul Smelling Discharge and Swelling at the incision site Call your doctor if you observe: Fever of 101 or Higher Change Dressing in: 2 days (2-3 days- port site; ok to remove neck opsite in 1 day) Follow Up Care Please Follow Up With: Pratima Atkins MD When: In 10 days for permanent suture removal?call office for appointment Test Results: Test results from this visit will be discussed in further detail at your follow- up appointment, if applicable. Discharge Plan Admission Attending Provider: Pratima Atkins Primary Care Provider: Av Barros Discharge Orders/Prescriptions Prescriptions: New oxycodone-acetaminophen 5-325 mg tablet 1 - 2 tab PO Q6H PRN (Reason: pain) 3 Days Qty: 5 0RF Continued ibuprofen [Advil] 200 mg tablet 200 mg PO Q6H PRN (Reason: Pain) lidocaine-prilocaine 2.5-2.5 % cream 1 applic topical ONCE PRN (Reason: port access) 30 Days Qty: 30 2RF omeprazole 20 mg capsule,delayed release(DR/EC) 20 mg PO DAILY Qty: 30 0RF dexamethasone 4 mg tablet 4 mg PO .COMPLEX Qty: 6 5RF Rx Instructions: Take 4 mg orally; twice daily the day before, day of and day after lobo motherapy ONLY ondansetron 8 mg tablet,disintegrating 8 mg PO Q8H PRN (Reason: nausea and vomiting) Qty: 30 2RF folic acid 1 mg tablet 1 mg PO DAILY Qty: 90 1RF acyclovir 800 mg tablet 800 mg PO Q6H Qty: 60 0RF fentanyl 12 mcg/hr patch 72 hour 1 patch transdermal PRN PRN (Reason: Pain) hydrocodone-acetaminophen 5-325 mg Tablet 1 tab PO Q6H PRN (Reason: Pain) albuterol sulfate 90 mcg/actuation Hfa Aerosol Inhaler 1 inh INHALATION Q6H PRN (Reason: SOB) Discontinued oxycodone-acetaminophen 5-325 mg tablet 1 tab PO Q6H PRN (Reason: pain) 2 Days Qty: 6 0RF Referrals / Follow Up: Av Barros MD [Primary Care Provider] - Disposition Disposition (needs filled in before D/C Order can be placed): Home, Self Care
--- NOTE | 2023-01-17 12:30 | RAD_ITS ---
HISTORY: port -- pacu. TECHNIQUE: XR Chest 1 View. COMPARISON: 12/25/2022. FINDINGS: LINES/TUBES: Left chest wall port removed. Right chest wall place with catheter tip at the superior cavoatrial junction. CARDIOMEDIASTINAL BORDERS: Similar to prior and obscured on the left. LUNGS: Persistent severe opacification of the left lung from collapse, consolidation, or mass. Clear right lung. PLEURA: Persistent large left pleural effusion. No right pleural effusion or pneumothorax. RAD/Chest 1 View (Portable) IMPRESSION: Satisfactory appearance of right chest wall port. Persistent near complete opacification of the left chest. Electronically Signed: Nimco Hilario MD at 13:43 EDT ,
== END 2023-01-17 13:34 | disposition home or self-care (01) ==
LOC: SDC 09:34 → AC 09:37
PROVIDERS: PCP Family Medicine; Referring Provider Surgery; Visit Provider Surgery
PROC: (CPT 36561; principal; 2023-01-17 10:45)
DX: Z45.2 Encounter for adjustment and management of vascular access device (principal); C34.90 Malignant neoplasm of unspecified part of unspecified bronchus or lung; Z87.891 Personal history of nicotine dependence; R05.3 Chronic cough
CPT/HCPCS: 36561; 00532; 71045; 77001; J7120; J2405

== ENCOUNTER 2023-01-20 16:01 | Inpatient (IN) | payer OTHER, SELFPAY ==
[2023-01-20] VITALS (10 sets, daily range): BP systolic 110–131; BP diastolic 69–110; PULSE 105–134; RESP 18–33; TEMP 36.7–38.2; O2SAT 95–100; BMI 25.9; BMI 26.3
--- NOTE | 2023-01-20 17:48 | EKG12_ITS ---
Test Reason : FEVER Blood Pressure : / mmHG Vent. Rate : 114 BPM Atrial Rate : 114 BPM P-R Int : 140 ms QRS Dur : 078 ms QT Int : 304 ms P-R-T Axes : 033 027 038 degrees QTc Int : 419 ms Sinus tachycardia Otherwise normal ECG Confirmed by RASHARD VILLAGOMEZ, CHRISTINA ([id number]), assistant editor KAREN VIZCARRA ([id number]) on 01/21/2023 9:07:15 AM Referred By: SREEKANTH Confirmed By:CHRISTINA WETZEL MD
[2023-01-20 18:24] LABS: Absolute Lymphocyte Count 1.25 X10^3/uL (0.83-4.51); Absolute Neutrophil Count 28.3 X10^3/uL (2.0-7.7); Basophil# 0.27 X10^3/uL; Basophil% 0.8 % (0-1); Eosinophil# 0.04 X10^3/uL; Eosinophils% 0.1 % (0-5); Hematocrit 33.7 % (40-54); Hemoglobin 10.8 g/dL (13.0-16.5); Lymphocyte # 1.25 X10^3/ul (0.83-4.51); Lymphocyte % 3.5 % (19-41); Mean Corpuscular Hgb 29.1 pg (27.0-32.0); Mean Corpuscular Volume 90.8 fL (80-94); Mean Platelet Vol. 8.6 fl (6.2-12.0); Monocyte# 4.41 X10^3/uL; Monocyte% 12.5 % (0-10); NRBC Flagged by Analyzer 0.1 % (0-5); Neutrophil # 28.33 X10^3/uL (2.7-7.7); Neutrophil % 80.3 % (47-70); POSITIVE COUNT YES; POSITIVE DIFFERENTIAL YES; Platelet Count 355 K/mm3 (150-450); RBC Distribution Width CV 15.9 % (11.6-14.6); RBC Distribution Width SD 50.2 fl (35.1-43.9); Red Blood Count 3.71 M/mm3 (4.6-6.2)
[2023-01-20 18:28] LABS: Differential Indicated SCAN CRITERIA MET
[2023-01-20 18:29] LABS: White Blood Count 35.3 K/mm3 (4.4-11.0)
[2023-01-20] MEDS: Acetaminophen 325 MG Tablet 650 MG PO (18:31)
[2023-01-20] MEDS: 0.9% Normal Saline 1,000 ML 999 ML IV (18:32)
[2023-01-20 18:41] LABS: ALB/GLOB Ratio 0.4 RATIO (0.9-2.4); AST(SGOT) 98 U/L (15-37); Alanine Aminotransfer ALT/SGPT 21 U/L (16-61); Albumin, Serum 2.2 g/dL (3.2-5.0); Alkaline Phosphatase 202 U/L (45-117); Anion Gap 7 (5-15); BUN 17 mg/dL (7-18); Calcium,Total 10.4 mg/dL (8.5-10.1); Chloride 92 mmol/L (98-107); Creatinine, Serum 1.13 mg/dL (0.70-1.30); EST Glomerular Filtration Rate 73 mL/min (>60); Est Glom Filt Rate - Afr Amer 88 mL/min (>60); Estimated Creatinine Clearance 82.37 ml/min; Globulin 5.5 g/dL (2.2-4.2); Glucose 103 mg/dL (74-106); Protein, Total 7.7 g/dL (6.4-8.2); Sodium Level 128 mmol/L (136-145)
[2023-01-20 18:47] LABS: Lactic Acid 1.5 mmol/L (0.4-1.9)
[2023-01-20 18:49] LABS: Differential Comment SCANNED
--- NOTE | 2023-01-20 18:55 | RAD_ITS ---
STUDY: X-RAY CHEST REASON FOR EXAM: Male, 52 years old. fever TECHNIQUE: PA and lateral COMPARISON: January 17, 2023 FINDINGS: Severe diffuse opacification of left hemithorax likely due to pleural effusion and airspace consolidation. Heart size cannot be assessed due to obscuration by airspace disease. Normal mediastinum and amaris. Normal visualized pulmonary arteries. Normal visualized aortic arch and descending thoracic aorta Mediport catheter noted on the right with tip in distal superior vena cava at atriocaval junction. Normal visualized thoracic spine. Normal visualized ribs, clavicles, and shoulders. There is no demonstrated abnormality of the visualized soft tissue structures of the upper abdomen. No significant change since prior exam RAD/Chest PA and Lateral IMPRESSION: Persistent opacification of left hemithorax secondary to airspace disease and possible effusion. Electronically Signed: Sal Vega MD at 19:18 EDT ,
[2023-01-20 19:47] LABS: Squamous Epithelial Cells - UA 0 SEEN /hpf (0-5)
[2023-01-20 19:48] LABS: Color, Urine Yellow (Yellow); Glucose, Dipstick Normal (Normal); Ketone-Dipstick 50 mg/dl (Negative); Leukocyte Esterase-Dipstick 25 /ul (Negative); Nitrite-Dipstick Negative (Negative); Occult Blood-Urine 10 /ul (Negative); Protein-Dipstick 30 mg/dl (Negative); Urine Clarity Clear (Clear); Urine Urobilinogen 1 mg/dl (Normal)
[2023-01-20 19:51] LABS: Urine Bilirubin Dipstick 1 mg/dL (Negative)
[2023-01-20 19:55] LABS: Hyaline Cast 0-5 SEEN /lpf (0-5); Red Blood Cells-Urine 0-5 SEEN /hpf (0-5); White Blood Cells 0-5 SEEN /hpf (0-5)
[2023-01-20 19:56] LABS: Bacteria 1+ /hpf (None Seen); Mucous, Urine RARE /hpf (<or=2+)
[2023-01-20] MEDS: Lidocaine/Prilocaine HCl 5 GM Tube TOPICAL (19:59)
--- NOTE | 2023-01-20 20:29 | CT_ITS ---
INDICATION: fever, abnormal cxr EXAMINATION: CT CHEST WITH CONTRAST - CT Chest W/ Contrast Injection TECHNIQUE: Helically acquired images were obtained of the chest following IV contrast. A radiation dose optimization technique was used for this scan. IV Contrast dosage and agent: 100 mL [id number] COMPARISON: December 03, 2022. FINDINGS: Accessed right chest port with tip projecting in the right atrium. LUNGS, PLEURA AND LARGE AIRWAYS: Left upper lung perihilar and superior mediastinal confluent mass measuring 13.3 x 12.2, increased in size from 11.3 x 9.3 cm on December 03, 2022 PET/CT, replacing the left upper lobe and in continuity with the left mediastinum, slightly narrowing the aortic arch, and obliterating the left upper lobe bronchus. Moderate layering left pleural effusion with compressive atelectasis of the left lower lobe. Medial right upper lobe and lateral right middle lobe centrilobular nodular airspace disease. 4 mm lateral right lower lobe nodule axial image 73 and 7 mm medial right lower lobe axial image 71. No pneumothorax. THYROID: No thyroid lesions. HEART AND PERICARDIUM: Heart size is normal. Small pericardial effusion. VESSELS: Thoracic aorta is not dilated. No aortic dissection. No obvious central pulmonary embolism although this study was not performed with the pulmonary embolism protocol. MEDIASTINUM AND MONIQUE: No mediastinal or hilar adenopathy. Esophagus is unremarkable. No hiatal hernia. UPPER ABDOMEN: Interval enlargement of bilateral adrenal masses and right periaortic adenopathy.. BONES: No suspicious lytic or blastic abnormality. CT/Chest WITH Contrast IMPRESSION: Increased size of left perihilar 13.3 cm mass abutting and possibly extending into the left superior mediastinum with mild narrowing of the aortic arch and obliteration of left upper lobe bronchus. Interval enlargement of bilateral adrenal masses and upper abdominal adenopathy. Increased centrilobular nodularity within the lateral right upper lung and peripheral right lower lobe of uncertain significance, possibly atypical infection or metastatic neoplastic disease. New small pericardial effusion. Electronically Signed: Holden Brambila MD at 22:20 EDT ,
--- NOTE | 2023-01-20 20:58 | ED.RN ---
2049 recieved report on pt from amol altamirano
--- NOTE | 2023-01-20 21:41 | EDS_ITS ---
HPI History of Present Illness Chief Complaint: Fever Narrative Narrative: Patient is a 52-year-old male with history of stage IV adenocarcinoma of the lungs presenting with fever. Patient's last chemotherapy was 4 weeks ago. He had a fever today of 102.7 at home. Has not having issues with vomiting and there is concern for aspiration. On Friday, 3 days ago, patient had his port removed from the left chest and placed a new 1 on the right chest wall. Patient is not been on any recent steroids. As having difficulty keeping up his nutrition has had increased loss of appetite over the past 2 days. No other systemic symptoms reported. Is on 2 L of oxygen at baseline. 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 Rapid weight loss Regional lymph node metastasis present Shortness of breath on exertion Stomatitis Home Medications fentanyl 12 mcg/hr transdermal patch See Rx Instructions .Route .COMPLEX chronic pain 01/15/23 [History Last Taken 01/18/23 23:00] folic acid 1 mg tablet 1 mg PO DAILY supplement 01/20/23 [History Last Taken Unknown] ondansetron 8 mg disintegrating tablet 8 mg PO Q8H nausea 01/20/23 [History Last Taken Unknown] Allergy/AdvReac Type Severity Reaction Status Date / Time No Known Allergies Allergy Verified 01/20/23 16:05 Family History Aunt Cancer paternal - unknown type Sister Lymphoma T-cell Non Hodgkin's Social History household members: spouse Smoking Status: Former smoker Tobacco: How many years used: 8 how long ago did patient quit smoking: quit 30 years ago ROS ROS ED Constitutional Constitutional ED: Reports chills, fever(s) and weight loss Eyes Eyes: Denies change in vision Cardiovascular Cardiovascular: Denies chest pain Respiratory/Chest Respiratory/Chest: Reports cough and dyspnea Gastrointestinal Gastrointestinal: Reports nausea and vomiting; Denies abdominal pain or diarrhea Genitourinary Genitourinary ED: Denies dysuria or hematuria Musculoskeletal Musculoskeletal: Denies arthralgias or myalgias Integumentary Denies rash Neurologic Neurologic: Reports weakness; Denies headache(s) Hematologic/Lymphatic Hematologic/Lymphatic: Denies easy bleeding or easy bruising EXAM Physical Exam Const Vital Signs: 01/20/23 16:03 01/20/23 16:35 01/20/23 16:05 Temperature 100.8 F H 98.9 F Temperature Source Oral Oral Pulse Rate 134 H 118 H Respiratory Rate 20 H 28 H Respiratory Effort Normal Non-Labored Respiratory Pattern Normal Blood Pressure 110/69 126/90 H Blood Pressure Mean 82 102 Pulse Ox 96 95 Oxygen Delivery Method Nasal Cannula Nasal Cannula Oxygen Flow Rate (L/min) 2 2 01/20/23 17:05 01/20/23 18:05 01/20/23 19:00 Temperature 98.7 F 98.5 F 98.3 F Temperature Source Oral Oral Oral Pulse Rate 115 H 111 H 105 H Respiratory Rate 30 H 33 H 22 H Respiratory Effort Respiratory Pattern Blood Pressure 124/93 H 123/97 H 128/94 H Blood Pressure Mean 103 105 105 Pulse Ox 96 95 95 Oxygen Delivery Method Nasal Cannula Nasal Cannula Nasal Cannula Oxygen Flow Rate (L/min) 2 2 2 01/20/23 20:00 01/20/23 21:15 01/20/23 21:34 Temperature 98.2 F 98.3 F 98.1 F Temperature Source Oral Oral Oral Pulse Rate 111 H 113 H 111 H Respiratory Rate 22 H 28 H 27 H Respiratory Effort Respiratory Pattern Blood Pressure 122/87 H 113/83 H 121/80 H Blood Pressure Mean 98 93 93 Pulse Ox 97 99 99 Oxygen Delivery Method Nasal Cannula Room Air Room Air Oxygen Flow Rate (L/min) 2 01/20/23 22:08 Temperature 98.3 F Temperature Source Oral Pulse Rate 110 H Respiratory Rate 22 H Respiratory Effort Respiratory Pattern Blood Pressure 112/87 H Blood Pressure Mean 95 Pulse Ox 97 Oxygen Delivery Method Room Air Oxygen Flow Rate (L/min) Positive well developed Constitutional Narrative: Sickly appearing. General Appearance ED: well developed and NAD HEENT Reports dry mucous membranes Mouth ED: Yes dry mucous membranes Mouth: dry mucous membranes Eyes PERRL and EOMs intact bilaterally Neck supple and no JVD Chest Wall inspection of chest normal Chest Narrative: Healing incision of the left anterior chest wall. There is surgical incision with sutures in place on the right anterior chest wall corresponding to recently placed port. No surrounding erythema or signs of secondary infection Resp normal respiratory effort Resp Narrative: Diminished breath sounds on the left Cardio regular rhythm Rate: tachycardic GI normal to inspection, nondistended, normoactive bowel sounds and non-tender Back/Spine no CVA tenderness Neuro oriented x3 Sensorium / Orientation: alert Motor Exam: general weakness Skin no rashes or lesions noted and no wounds MDM MDM MDM Narrative Medical decision making narrative: Patient is evaluated for fever. He is a cancer patient and last chemotherapy 4 weeks ago. Upon arrival patient is febrile. Neutropenic work-up is initiated he is given 2 g of IV cefepime in the emergency room. Family voiced concern of possible aspiration because he does vomit a lot. Patient has a significant elevation of his white blood cell count of 35.3 thousand. This is increasing over the past month. Patient is a mild anemia of 10.8. Does have a left shift. He is hyponatremic with a sodium of 128.Patient has mildly worsening of his alkaline phosphatase which is consistent with his known history of metastasis. Urinalysis has 50 ketones with 0-5 white blood cells and 1 bacteria. Will be sent for culture but suspect this is more contamination. Chest x-ray shows a stable white out on the left side. Decision made to perform a CT scan of the chest to better characterize of the left lung as possible source of infection. I also discussed the case with oncology, Dr. Vasquez, who is agreeable with admission especially as this elevation of his leukocyte is out of proportion to any recent treatments and concern for infection. Patient's lactate is normal. He does not meet criteria for severe sepsis or septic shock does not have acute endorgan damage. Will be added on vancomycin to better cover for MRSA as well with his recent surgery. Patient agreeable with this plan of care. Case discussed with my physician who evaluates patient in the ER. History & Record Review Discussion w/independent historian: Patient and Significant other Additional record(s) reviewed:: Prior inpatient record Lab Data Attestation: I reviewed the patient's lab results. Labs: Laboratory Results - last 24 hr 01/20/23 01/20/23 01/20/23 18:00 18:00 18:00 WBC 35.3 H* RBC 3.71 L Hgb 10.8 L Hct 33.7 L MCV 90.8 MCH 29.1 MCHC 32.0 RDW Std Deviation 50.2 H RDW Coeff of Angelica 15.9 H Plt Count 355 MPV 8.6 Immature Gran % (Auto) 2.800 H Neut % (Auto) 80.3 H Lymph % (Auto) 3.5 L [place] % (Auto) 12.5 H Eos % (Auto) 0.1 Baso % (Auto) 0.8 Absolute Neuts (auto) 28.3 H Absolute Lymphs (auto) 1.25 Nucleated RBC % 0.1 Differential Comment SCANNED Diff Path Review May foll Sodium 128 L Potassium 5.0 Chloride 92 L Carbon Dioxide 29.0 Anion Gap 7 BUN 17 Creatinine 1.13 Estim Creat Clear Calc 82.37 Est GFR (MDRD) Af Amer 88 Est GFR (MDRD) Non-Af 73 BUN/Creatinine Ratio 15.0 Glucose 103 Lactic Acid 1.5 Calcium 10.4 H Total Bilirubin 0.60 AST 98 H ALT 21 Alkaline Phosphatase 202 H Total Protein 7.7 Albumin 2.2 L Globulin 5.5 H Albumin/Globulin Ratio 0.4 L Urine Color Urine Clarity Urine pH Ur Specific [place] Urine Protein Urine Glucose (UA) Urine Ketones Urine Occult Blood Urine Nitrite Urine Bilirubin Urine Urobilinogen Ur Leukocyte Esterase Urine RBC Urine WBC Ur Squamous Epith Cells Urine Bacteria Hyaline Casts Urine Mucus 01/20/23 19:40 WBC RBC Hgb Hct MCV MCH MCHC RDW Std Deviation RDW Coeff of Angelica Plt Count MPV Immature Gran % (Auto) Neut % (Auto) Lymph % (Auto) [place] % (Auto) Eos % (Auto) Baso % (Auto) Absolute Neuts (auto) Absolute Lymphs (auto) Nucleated RBC % Differential Comment Diff Path Review Sodium Potassium Chloride Carbon Dioxide Anion Gap BUN Creatinine Estim Creat Clear Calc Est GFR (MDRD) Af Amer Est GFR (MDRD) Non-Af BUN/Creatinine Ratio Glucose Lactic Acid Calcium Total Bilirubin AST ALT Alkaline Phosphatase Total Protein Albumin Globulin Albumin/Globulin Ratio Urine Color Yellow Urine Clarity Clear Urine pH 5.0 Ur Specific [place] 1.020 Urine Protein 30 H Urine Glucose (UA) Normal Urine Ketones 50 H Urine Occult Blood 10 H Urine Nitrite Negative Urine Bilirubin 1 H Urine Urobilinogen 1 H Ur Leukocyte Esterase 25 H Urine RBC 0-5 SEEN Urine WBC 0-5 SEEN Ur Squamous Epith Cells 0 SEEN Urine Bacteria 1+ Hyaline Casts 0-5 SEEN Urine Mucus RARE Radiography Chest X-Ray - ED: 1 View, Read by ED Physician, Read by Radiologist and Left Effusion Diagnostic Testing: Clinical Impression(s) from Imaging Studies Chest X-Ray 01/20/23 18:55 IMPRESSION: Persistent opacification of left hemithorax secondary to airspace disease and possible effusion. Electronically Signed: Sal Vega MD at 19:18 EDT , Chest CT 01/20/23 20:29 IMPRESSION: Increased size of left perihilar 13.3 cm mass abutting and possibly extending into the left superior mediastinum with mild narrowing of the aortic arch and obliteration of left upper lobe bronchus. Interval enlargement of bilateral adrenal masses and upper abdominal adenopathy. Increased centrilobular nodularity within the lateral right upper lung and peripheral right lower lobe of uncertain significance, possibly atypical infection or metastatic neoplastic disease. New small pericardial effusion. Electronically Signed: Holden Brambila MD at 22:20 EDT , ADDENDUM: 01/20/234 IMPRESSION: undefined Rhythm Strip Rhythm Strip: Sinus Tach Rate: 114 Ectopy: None EKG Initial EKG: Attestation: I personally reviewed and interpreted this EKG as follows: Interpretation: Sinus Tachycardia Comments: Sinus tachycardia rate of 114 bpm Normal axis Normal intervals Normal ST segments Management Discussion w/another healthcare provider: Hospitalist and Risk Control Officer Discharge Plan Dx/Rx/DC Orders Clinical Impression: Pneumonia, Adenocarcinoma of lung, stage 4, Hyponatremia Disposition Disposition: Acute Care Hospital [facility] Discharge Date/Time: 01/20/23 23:14
--- NOTE | 2023-01-20 21:42 | PCM.HP.STD ---
[facility] - General General Date of Admission: 01/20/23 Date of Service: 01/20/23 HPI Narrative BASILIO GOSS, is a 52 M who presents to the emergency room with chief complaint of shortness of breath. Patient has significant past medical history of stage IV lung cancer for which she received his first chemotherapy 4 weeks ago. He has recently had a port replaced and subsequently developed fever and chills. Chest x-ray shows persistent opacification of the left hemithorax and positive pleural effusion. Patient has an elevated white blood cell count of 35,000 with a left shift. He will be admitted to general medical floor treated for suspected underlying pneumonia due to his lung cancer. He does see Dr. Brito for his cancer treatment. He does complain of anorexia and is requesting a medication to improve his appetite. He also does have chronic back pain due to his metastatic disease. He does not want further pain medications at this time. 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 Rapid weight loss Regional lymph node metastasis present Shortness of breath on exertion Stomatitis Home Medications fentanyl 12 mcg/hr transdermal patch 2 patch transdermal CONT 01/15/23 [History Last Taken Unknown] Allergy/AdvReac Type Severity Reaction Status Date / Time No Known Allergies Allergy Verified 01/20/23 16:05 Family History Aunt Cancer paternal - unknown type Sister Lymphoma T-cell Non Hodgkin's Social History household members: spouse Smoking Status: Former smoker Tobacco: How many years used: 8 how long ago did patient quit smoking: quit 30 years ago ROS Constitutional Constitutional: Reports anorexia, chills and fever(s) Eyes Eyes: Denies blurry vision ENT HEENT: Denies abnormal hearing Cardiovascular Cardiovascular: Reports chest pain Respiratory/Chest Respiratory/Chest: Reports shortness of breath at rest Gastrointestinal Gastrointestinal: Denies abdominal pain Genitourinary Genitourinary: Denies dysuria Musculoskeletal Musculoskeletal: Reports back pain Integumentary Integumentary: Denies dry skin Neurologic Neurologic: Denies abnormal gait Psychiatric Psychiatric: Reports anxiety Vital Signs Vital Signs Vital Signs: 01/20/23 16:03 01/20/23 16:35 01/20/23 16:05 Temperature 100.8 F H 98.9 F Temperature Source Oral Oral Pulse Rate 134 H 118 H Respiratory Rate 20 H 28 H Respiratory Effort Normal Non-Labored Respiratory Pattern Normal Blood Pressure 110/69 126/90 H Blood Pressure Mean 82 102 Pulse Ox 96 95 Oxygen Delivery Method Nasal Cannula Nasal Cannula Oxygen Flow Rate (L/min) 2 2 01/20/23 17:05 01/20/23 18:05 01/20/23 19:00 Temperature 98.7 F 98.5 F 98.3 F Temperature Source Oral Oral Oral Pulse Rate 115 H 111 H 105 H Respiratory Rate 30 H 33 H 22 H Respiratory Effort Respiratory Pattern Blood Pressure 124/93 H 123/97 H 128/94 H Blood Pressure Mean 103 105 105 Pulse Ox 96 95 95 Oxygen Delivery Method Nasal Cannula Nasal Cannula Nasal Cannula Oxygen Flow Rate (L/min) 2 2 2 01/20/23 20:00 01/20/23 21:15 01/20/23 21:34 Temperature 98.2 F 98.3 F 98.1 F Temperature Source Oral Oral Oral Pulse Rate 111 H 113 H 111 H Respiratory Rate 22 H 28 H 27 H Respiratory Effort Respiratory Pattern Blood Pressure 122/87 H 113/83 H 121/80 H Blood Pressure Mean 98 93 93 Pulse Ox 97 99 99 Oxygen Delivery Method Nasal Cannula Room Air Room Air Oxygen Flow Rate (L/min) 2 Weight Weight: 186 lb 1.122 oz Body Mass Index (BMI) 25.9 Physical Exam Const oriented x3 HEENT normocephalic and head/scalp atraumatic Neck no lymphadenopathy Lymph Lymphatic: no lymphadenopathy noted Resp Auscultation: diminished lung sounds left; Negative for rales, rhonchi or wheezes Cardio regular rhythm, S1 normal heart sound, S2 normal heart sound and no murmurs Rate: tachycardic GI normal to inspection, nondistended, normoactive bowel sounds Extremity normal capillary refill Skin General Skin Exam: no breakdown Neuro CN's II-XII intact bilaterally Psych thought process normal, cooperative and affect normal Appearance: appropriate Results Lab / Micro Data Result Diagrams: 01/20/23 18:00 01/20/23 18:00 Labs: Laboratory Results - last 24 hr 01/20/23 18:00: WBC 35.3 H*, RBC 3.71 L, Hgb 10.8 L, Hct 33.7 L, MCV 90.8, MCH 29.1, MCHC 32.0, RDW Std Deviation 50.2 H, RDW Coeff of Angelica 15.9 H, Plt Count 355, MPV 8.6, Immature Gran % (Auto) 2.800 H, Neut % (Auto) 80.3 H, Lymph % (Auto) 3.5 L, [place] % (Auto) 12.5 H, Eos % (Auto) 0.1, Baso % (Auto) 0.8, Absolute Neuts (auto) 28.3 H, Absolute Lymphs (auto) 1.25, Nucleated RBC % 0.1, Differential Comment SCANNED, Diff Path Review November01/20/23 18:00: Sodium 128 L, Potassium 5.0, Chloride 92 L, Carbon Dioxide 29.0, Anion Gap 7, BUN 17, Creatinine 1.13, Estim Creat Clear Calc 82.37, Est GFR (MDRD) Af Amer 88, Est GFR (MDRD) Non-Af 73, BUN/Creatinine Ratio 15.0, Glucose 103, Calcium 10.4 H, Total Bilirubin 0.60, AST 98 H, ALT 21, Alkaline Phosphatase 202 H, Total Protein 7.7, Albumin 2.2 L, Globulin 5.5 H, Albumin/Globulin Ratio 0.4 L 01/20/23 18:00: Lactic Acid 1.5 01/20/23 19:40: Urine Color Yellow, Urine Clarity Clear, Urine pH 5.0, Ur Specific [place] 1.020, Urine Protein 30 H, Urine Glucose (UA) Normal, Urine Ketones 50 H, Urine Occult Blood 10 H, Urine Nitrite Negative, Urine Bilirubin 1 H, Urine Urobilinogen 1 H, Ur Leukocyte Esterase 25 H, Urine RBC 0-5 SEEN, Urine WBC 0-5 SEEN, Ur Squamous Epith Cells 0 SEEN, Urine Bacteria 1+, Hyaline Casts 0-5 SEEN, Urine Mucus RARE Radiology Impression Chest X-Ray 01/20/23 18:55 IMPRESSION: Persistent opacification of left hemithorax secondary to airspace disease and possible effusion. Electronically Signed: Sal Vega MD at 19:18 EDT , Assessment & Plan Assessment/Plan (1) Shortness of breath on exertion: (2) Metastasis to brain: (3) Metastasis to bone: (4) Metastasis to adrenal gland: QUALIFIERS: Laterality: bilateral Qualified Code(s): C79.71 - Secondary malignant neoplasm of right adrenal gland; C79.72 - Secondary malignant neoplasm of left adrenal gland (5) Cancer of left lung: (6) Adenocarcinoma of lung, stage 4: (7) Hypercholesteremia: (8) Pneumonia: PLAN: Plan 1 stage IV metastatic adenocarcinoma of the lung to both bone and brain status post one chemotherapy treatment 4 weeks ago and recent port revision. We will consult Dr. Brito. Continue his pain medications with fentanyl patch and oxygen therapy per routine protocol 2. Pneumonia?initiate treatment with vancomycin and Zosyn, patient did receive a dose of cefepime in the emergency room will add breathing treatments as needed every 4 hours. 3. Hypercholesterolemia?continue statin medication 4. DVT prophylaxis?low molecular weight heparin 5. Anorexia?add Remeron for trial and consider consultation to client portfolio manager Charges/Coding Visit Charges Inpatient E&M: 00640 Init Hosp L2
--- NOTE | 2023-01-20 22:37 | PCM.RX.CS ---
Consult Pharmacy has been consulted to manage selected antiobiotic: Vancomycin Type of Consult: New start Suspected Infection: Pneumonia Prior Doses of Antibiotics Received/Current Regimen: Medications Vancomycin HCl (Vancomycin) 1,000 mg in 200 mls @ 200 mls/hr IV Q12H ERICK Vancomycin HCl 1,250 mg/ (Sodium Chloride) 275 mls @ 167 mls/hr IV X1 ONE Stop: 01/20/23 23:19 Last Admin: 01/20/23 22:05 Dose: 167 mls/hr Labs: Sodium 128 mmol/L (136-145) L 01/20/23 18:00 Potassium 5.0 mmol/L (3.5-5.1) 01/20/23 18:00 Chloride 92 mmol/L (98-107) L 01/20/23 18:00 Carbon Dioxide 29.0 mmol/L (21.0-32.0) 01/20/23 18:00 Anion Gap 7 (5-15) 01/20/23 18:00 BUN 17 mg/dL (7-18) 01/20/23 18:00 Creatinine 1.13 mg/dL (0.70-1.30) 01/20/23 18:00 Est GFR (MDRD) Af Amer 88 mL/min (>60) 01/20/23 18:00 Est GFR (MDRD) Non-Af 73 mL/min (>60) 01/20/23 18:00 BUN/Creatinine Ratio 15.0 RATIO (10-20) 01/20/23 18:00 Glucose 103 mg/dL (74-106) 01/20/23 18:00 Weight used for dosin.4 kg Estimated Creatinine Clearance: 82 Goal Trough: 10-15 mcg/mL Pharmacy Plan for Drug Dosing: Pharmacy Service will continue to monitor and adjust dosing as required. Follow-Up Labs: Trough Vancomycin Labs to be done on [date and time ordered]: 01/22/23 @0930
[2023-01-21] VITALS (10 sets, daily range): BP systolic 116–130; BP diastolic 74–95; PULSE 114–130; RESP 18–24; TEMP 37.2–38.5; O2SAT 94–99
[2023-01-21] MEDS: Mirtazapine 15 MG Tablet PO ×2 (00:13→21:05)
[2023-01-21] MEDS: Acetaminophen 325 MG Tablet 650 MG PO (02:39)
[2023-01-21] MEDS: HYDROmorphone 1 MG/ML Syringe IV ×4 (03:34→20:59)
[2023-01-21 06:14] LABS: Absolute Neutrophil Count 24.8 X10^3/uL (2.0-7.7); Basophil# 0.19 X10^3/uL; Basophil% 0.6 % (0-1); Eosinophil# 0.06 X10^3/uL; Eosinophils% 0.2 % (0-5); Hematocrit 27.7 % (40-54); Hemoglobin 9.1 g/dL (13.0-16.5); Lymphocyte % 3.5 % (19-41); Mean Corp Hgb Conc 32.9 g/dL (32-36); Mean Corpuscular Hgb 29.9 pg (27.0-32.0); Mean Corpuscular Volume 91.1 fL (80-94); Mean Platelet Vol. 8.8 fl (6.2-12.0); Monocyte# 4.18 X10^3/uL; Monocyte% 13.4 % (0-10); NRBC Flagged by Analyzer 0 % (0-5); Neutrophil # 24.83 X10^3/uL (2.7-7.7); Neutrophil % 79.6 % (47-70); POSITIVE COUNT YES; POSITIVE DIFFERENTIAL YES; Platelet Count 308 K/mm3 (150-450); RBC Distribution Width CV 15.8 % (11.6-14.6); RBC Distribution Width SD 49.8 fl (35.1-43.9); Red Blood Count 3.04 M/mm3 (4.6-6.2); White Blood Count 31.2 K/mm3 (4.4-11.0)
[2023-01-21 06:38] LABS: Differential Indicated SCAN CRITERIA MET
[2023-01-21 06:49] LABS: Differential Comment SCANNED
[2023-01-21 06:54] LABS: Anion Gap 4 (5-15); BUN 16 mg/dL (7-18); BUN/Creat Ratio 16.3 RATIO (10-20); Calcium,Total 9.5 mg/dL (8.5-10.1); Chloride 99 mmol/L (98-107); Creatinine, Serum 0.98 mg/dL (0.70-1.30); EST Glomerular Filtration Rate 86 mL/min (>60); Est Glom Filt Rate - Afr Amer 104 mL/min (>60); Estimated Creatinine Clearance 94.98 ml/min; Glucose 110 mg/dL (74-106); Potassium 4.6 mmol/L (3.5-5.1); Sodium Level 132 mmol/L (136-145)
[2023-01-21] MEDS: Albuterol 2.5 MG/3 ML VIAL.NEB. INHALATION ×3 (06:57→20:31)
[2023-01-21] MEDS: Folic Acid 1 MG Tablet PO (09:00)
[2023-01-21] MEDS: Ensure Plus High Protein 120 ML LIQUID PO ×3 (09:00→17:33)
--- NOTE | 2023-01-21 09:43 | EX.PCM.CONCC ---
Assessment & Plan Assessment/Plan (1) Postobstructive pneumonia: PLAN: Plan RECOMMENDATIONS: 1. Wean supplemental oxygen to maintain saturations at or above 90%. 2. Continue IV antimicrobials for now. Anticipate 10-day treatment course of antibiotics. 3. Tentative plans for radiation simulation later today. 4. If the patient does not respond to a combination of radiation therapy and systemic chemotherapy, could consider outpatient referral to interventional parachute line tier for airway evaluation and possible stent placement. IMPRESSIONS: 1. Postobstructive pneumonia The patient initially presented with worsening shortness of breath and fever in the setting of worsening adenocarcinoma involving the left hilum with extensive mediastinal infiltration and compression of the left tracheobronchial tree. At the present time, the patient is maintaining appropriate saturations on his baseline 2 L/min requirement. He is on appropriate broad-spectrum antimicrobials. I did speak with radiation oncology regarding the patient's case. For now, I would recommend that we proceed with systemic chemotherapy and radiation. If the patient does not achieve any significant response to the aforementioned interventions, consideration could be given to referral on an outpatient basis to interventional pulmonary in [facility] for potential airway evaluation, tumor debulking and/or stent placement. The patient is being sent this afternoon for radiation simulation with tentative plans to initiate therapy later this week. When he is stable for discharge, he can be sent home on Levaquin to complete 10 days of therapy. He will need to be follow-up closely in the pulmonary medicine clinic on an outpatient basis. This note was generated with [employer] dictation software. It may contain incorrect words, spelling, and punctuation that were not noted in checking the note before signing. HPI Consult Data Date of Consult: 01/21/23 HPI Narrative Reason for Consultation: Pneumonia HPI Narrative: The patient is a 52-year-old male, with a history as outlined below, who presented to the emergency department on January 20 with fever and shortness of breath. The patient is currently followed by Dr. Bee of pulmonary medicine after being evaluated in October 2022 with a left hilar lung mass and an adrenal mass, which was subsequently biopsied. Pathology from the adrenal mass was consistent with adenocarcinoma of lung primary. The patient was last seen in the pulmonary medicine clinic on January 07, at which time, the patient was noted to have a 2 L/min oxygen requirement. The patient was started on systemic chemotherapy in December 2022. He was also referred to radiation oncology. On presentation to the emergency department, the patient was noted to have a low-grade temperature of 100.8 ?F. He was notably tachycardic and tachypneic, but was maintaining appropriate oxygen saturations on 2 L/min via nasal cannula. Initial laboratory evaluation demonstrated elevated white blood cell count to 35,000. Chemistry profile was notable for a sodium of 128 and chloride of 92. Lactate was within normal limits. CT chest demonstrated an enlarging left hilar lung mass with compression of the left upper lobe bronchus and a moderate left-sided pleural effusion. The patient was subsequently placed on broad-spectrum antimicrobials and admitted to the medical surgical floor for further management. I did speak with radiation oncology regarding the patient's case this morning. There are tentative plans for the patient to undergo a simulation today and potentially start radiation therapy later this week. 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 Rapid weight loss Regional lymph node metastasis present Shortness of breath on exertion Stomatitis Home Medications fentanyl 12 mcg/hr transdermal patch See Rx Instructions .Route .COMPLEX chronic pain 01/15/23 [History Last Taken 01/18/23 23:00] folic acid 1 mg tablet 1 mg PO DAILY supplement 01/20/23 [History Last Taken Unknown] ondansetron 8 mg disintegrating tablet 8 mg PO Q8H nausea 01/20/23 [History Last Taken Unknown] Allergy/AdvReac Type Severity Reaction Status Date / Time No Known Allergies Allergy Verified 01/20/23 16:05 Family History Aunt Cancer paternal - unknown type Sister Lymphoma T-cell Non Hodgkin's Social History household members: spouse Smoking Status: Former smoker Tobacco: How many years used: 8 how long ago did patient quit smoking: quit 30 years ago ROS ROS Narrative 10 systems were reviewed with pertinent positives as noted in the HPI above. Physical Exam Const alert and no apparent distress General Appearance: cooperative HEENT normocephalic and head/scalp atraumatic HEENT Narrative: Vocal hoarseness present Eyes PERRL, EOMs intact bilaterally and conjunctivae normal Neck supple General: trachea midline Chest inspection of chest normal Chest Narrative: Stable chest wall port. Resp Auscultation: diminished lung sounds left; Negative for rales, rhonchi or wheezes Cardio regular rate and regular rhythm GI normal to inspection, nondistended, normoactive bowel sounds Extremity no clubbing, cyanosis or edema Skin no rashes or lesions noted Neuro oriented x3, CN's II-XII intact bilaterally, moves all extremities and no focal motor deficits Psych cooperative and affect normal Lab / Micro Data Result Diagrams: 01/21/23 06:10 01/21/23 06:10 Labs: Laboratory Results - last 24 hr 01/20/23 18:00: WBC 35.3 H*, RBC 3.71 L, Hgb 10.8 L, Hct 33.7 L, MCV 90.8, MCH 29.1, MCHC 32.0, RDW Std Deviation 50.2 H, RDW Coeff of Angelica 15.9 H, Plt Count 355, MPV 8.6, Immature Gran % (Auto) 2.800 H, Neut % (Auto) 80.3 H, Lymph % (Auto) 3.5 L, Kend[place] % (Auto) 12.5 H, Eos % (Auto) 0.1, Baso % (Auto) 0.8, Absolute Neuts (auto) 28.3 H, Absolute Lymphs (auto) 1.25, Nucleated RBC % 0.1, Differential Comment SCANNED, Diff Path Review November01/20/23 18:00: Sodium 128 L, Potassium 5.0, Chloride 92 L, Carbon Dioxide 29.0, Anion Gap 7, BUN 17, Creatinine 1.13, Estim Creat Clear Calc 82.37, Est GFR (MDRD) Af Amer 88, Est GFR (MDRD) Non-Af 73, BUN/Creatinine Ratio 15.0, Glucose 103, Calcium 10.4 H, Total Bilirubin 0.60, AST 98 H, ALT 21, Alkaline Phosphatase 202 H, Total Protein 7.7, Albumin 2.2 L, Globulin 5.5 H, Albumin/Globulin Ratio 0.4 L 01/20/23 18:00: Lactic Acid 1.5 01/20/23 19:40: Urine Color Yellow, Urine Clarity Clear, Urine pH 5.0, Ur Specific [place] 1.020, Urine Protein 30 H, Urine Glucose (UA) Normal, Urine Ketones 50 H, Urine Occult Blood 10 H, Urine Nitrite Negative, Urine Bilirubin 1 H, Urine Urobilinogen 1 H, Ur Leukocyte Esterase 25 H, Urine RBC 0-5 SEEN, Urine WBC 0-5 SEEN, Ur Squamous Epith Cells 0 SEEN, Urine Bacteria 1+, Hyaline Casts 0-5 SEEN, Urine Mucus RARE 01/21/23 06:10: WBC 31.2 H*, RBC 3.04 L, Hgb 9.1 L, Hct 27.7 L, MCV 91.1, MCH 29.9, MCHC 32.9, RDW Std Deviation 49.8 H, RDW Coeff of Angelica 15.8 H, Plt Count 308, MPV 8.8, Immature Gran % (Auto) 2.700 H, Neut % (Auto) 79.6 H, Lymph % (Auto) 3.5 L, Kend[place] % (Auto) 13.4 H, Eos % (Auto) 0.2, Baso % (Auto) 0.6, Absolute Neuts (auto) 24.8 H, Absolute Lymphs (auto) 1.10, Nucleated RBC % 0, Differential Comment SCANNED, Diff Path Review November01/21/23 06:10: Sodium 132 L, Potassium 4.6, Chloride 99, Carbon Dioxide 29.0, Anion Gap 4 L, BUN 16, Creatinine 0.98, Estim Creat Clear Calc 94.98, Est GFR (MDRD) Af Amer 104, Est GFR (MDRD) Non-Af 86, BUN/Creatinine Ratio 16.3, Glucose 110 H, Calcium 9.5 Rhythm Strip Rhythm Strip: Sinus Tach Rate: 114 Ectopy: None Radiology Impression Chest X-Ray 01/20/23 18:55 IMPRESSION: Persistent opacification of left hemithorax secondary to airspace disease and possible effusion. Electronically Signed: Sal Vega MD at 19:18 EDT , Chest CT 01/20/23 20:29 IMPRESSION: Increased size of left perihilar 13.3 cm mass abutting and possibly extending into the left superior mediastinum with mild narrowing of the aortic arch and obliteration of left upper lobe bronchus. Interval enlargement of bilateral adrenal masses and upper abdominal adenopathy. Increased centrilobular nodularity within the lateral right upper lung and peripheral right lower lobe of uncertain significance, possibly atypical infection or metastatic neoplastic disease. New small pericardial effusion. Electronically Signed: Holden Brambila MD at 22:20 EDT , ADDENDUM: 01/20/23 2234 IMPRESSION: undefined Charges/Coding Visit Charges Inpatient E&M: 08033 Init Hosp L3
[2023-01-21] MEDS: Vancomycin IV 1,000 MG/200 ML BAG 200 MG IV ×2 (09:55→20:59)
[2023-01-21] MEDS: Enoxaparin 40 MG/0.4 ML Syringe SC (09:55)
[2023-01-21] MEDS: fentaNYL 25 MCG Patch TD (10:00)
[2023-01-21] MEDS: 0.9% Saline Lock 10 ML Syringe IV (10:01)
--- NOTE | 2023-01-21 10:44 | RAO.OV_ITS ---
Intake Vital Signs 01/17/23 10:05 01/20/23 16:05 01/20/23 16:05 01/20/23 17:05 01/20/23 18:05 01/20/23 19:00 01/20/23 20:00 01/20/23 21:15 01/20/23 21:34 01/20/23 22:08 01/20/23 22:38 01/20/23 23:35 01/20/23 23:55 01/21/23 02:37 01/21/23 02:40 01/21/23 03:39 01/21/23 04:28 01/21/23 06:59 01/21/23 06:59 01/21/23 11:30 Height 5 ft 11 in 5 ft 11 in 5 ft 11 in Weight: 186 lb 1.122 oz 188 lb 9.6 oz BMI 25.9 26.3 BP 126/90 H 124/93 H 123/97 H 128/94 H 122/87 H 113/83 H 121/80 H 112/8 7 H 131/110 H 127/95 H 126/86 H 116/80 Position Semi-Fowlers Semi-Fowlers Respiration 28 H 30 H 33 H 22 H 22 H 28 H 27 H 22 H 18 22 H 20 H 18 20 H Pulse 118 H 115 H 111 H 105 H 111 H 113 H 111 H 110 H 117 H 125 H 130 H 123 H 121 H Temp 98.9 F 98.7 F 98.5 F 98.3 F 98.2 F 98.3 F 98.1 F 98.3 F 99.3 F H 101.3 F H 100.2 F H 99.5 F H Pulse Oximetry (%) 95 96 95 95 97 99 99 97 100 94 96 94 98 Oxygen Flow Rate (L/min) 2 2 2 2 2 2 2 2 2 2 2 2 Intake Visit Reasons: PNA Chief Complaint: SOB Allergies No Known Allergies Allergy (Verified 01/20/23 16:05) Medications fentanyl 12 mcg/hr transdermal patch See Rx Instructions .Route .COMPLEX chronic pain 01/15/23 [History Confirmed 01/20/23] folic acid 1 mg tablet 1 mg PO DAILY supplement 01/20/23 [History Confirmed 01/20/23] ondansetron 8 mg disintegrating tablet 8 mg PO Q8H nausea 01/20/23 [History Confirmed 01/20/23] Home Medications Acetaminophen (Acetaminophen 325 Mg Tablet) 650 mg PO Q6H PRN PRN PRN Reason: Pain 1-10 or Fever Last Admin: 01/21/23 02:39 Dose: 650 mg Albuterol Sulfate (Albuterol 2.5 Mg/3 Ml Vial.Neb.) 2.5 mg INHALATION Q4HWA.RT [facility] Last Admin: 01/21/23 06:57 Dose: 2.5 mg Enoxaparin Sodium (Enoxaparin 40 Mg/0.4 Ml Syringe) 40 mg SC DAILY [facility] Last Admin: 01/21/23 09:55 Dose: 40 mg Fentanyl (Fentanyl 25 Mcg Patch) 25 mcg TD Q3D [facility]; Protocol Last Admin: 01/21/23 10:00 Dose: 25 mcg Folic Acid (Folic Acid 1 Mg Tablet) [facility] Last Admin: 01/21/23 09:00 Dose: 1 mg Hydromorphone HCl (Hydromorphone 1 Mg/Ml Syringe) 1 mg IV Q2H PRN PRN PRN Reason: Pain Score 4-10 Last Admin: 01/21/23 10:49 Dose: 1 mg Vancomycin IV-PHARMACY TO DOSE (1 each/ Sodium Chloride) 500 mls @ 250 mls/hr IV PRN PRN; Protocol PRN Reason: Rx to Dose Piperacillin Sod/Tazobactam (Sod 3.375 gm/ Sodium Chloride) 50 mls @ 12.5 mls/hr IV Q8 [facility] Last Infusion: 01/21/23 09:25 Dose: Infused Vancomycin HCl (Vancomycin) 1,000 mg in 200 mls @ 200 mls/hr IV Q12H [facility] Last Admin: 01/21/23 09:55 Dose: 200 mls/hr Sodium Chloride () 250 mls @ 15 mls/hr IV .[id number] PRN PRN Reason: Saline Flush Sodium Chloride () 250 mls @ 15 mls/hr IV .[id number] PRN PRN Reason: Additional IVPB Infusion Mirtazapine (Mirtazapine 15 Mg Tablet) 15 mg PO QHS [facility] Last Admin: 01/21/23 00:13 Dose: 15 mg Nutritional Formula (Lactose Free) (Ensure Plus High Protein 120 Ml Liquid) 120 ml PO TIDCM [facility] Last Admin: 01/21/23 09:00 Dose: 120 ml Ondansetron HCl (Ondansetron 4 Mg/2 Ml Vial) 4 mg IV Q8H PRN PRN PRN Reason: NAUSEA/VOMITING Ondansetron HCl (Ondansetron 8 Mg Tablet) 8 mg PO Q8H PRN PRN PRN Reason: NAUSEA/VOMITING Last Admin: 01/21/23 10:50 Dose: 8 mg Prochlorperazine Edisylate (Prochlorperazine 10 Mg/2 Ml Vial) 5 mg IV Q4H PRN PRN PRN Reason: Breakthrough nausea/vomiting Sodium Chloride (0.9% Saline Lock 10 Ml Syringe) 10 - 40 ml IV UD PRN PRN Reason: SALINE FLUSH Last Admin: 01/21/23 10:01 Dose: 20 ml Discontinued Medications Acetaminophen (Acetaminophen 325 Mg Tablet) 650 mg PO X1 ONE Stop: 01/20/23 17:49 Last Admin: 01/20/23 18:31 Dose: 650 mg Clarify Med Order (Clarify Order) 0 each NOTE CLARIFY ERICK Last Admin: 01/21/23 00:12 Dose: Not Given Fentanyl (Fentanyl 12 Mcg Patch) 12 mcg TD Q72H [facility]; Protocol Fentanyl (Fentanyl 25 Mcg Patch) 25 mcg TD Q3D [facility]; Protocol Cefepime HCl 2 gm/ Sodium (Chloride) 100 mls @ 200 mls/hr IV X1 ONE Stop: 01/20/23 18:17 Last Infusion: 01/20/23 21:16 Dose: Infused Sodium Chloride () 1,000 mls @ 999 mls/hr IV .Q1H1M ONE Stop: 01/20/23 18:48 Last Infusion: 01/20/23 19:33 Dose: Infused Vancomycin HCl 1,250 mg/ (Sodium Chloride) 275 mls @ 167 mls/hr IV X1 ONE Stop: 01/20/23 23:19 Last Infusion: 01/21/23 00:47 Dose: Infused Lidocaine/Prilocaine (Lidocaine/Prilocaine Hcl 5 Gm Tube) 0 gm TOPICAL X1 ONE; Protocol Stop: 01/20/23 18:27 Last Admin: 01/20/23 19:59 Dose: 1 appful PFSH [facility] Medical History Adenocarcinoma of lung, stage 4 Alcohol use Apnea, sleep Arthritis Asthma Back pain Benign skin mole Cancer of left lung Chondrosternal sprain Chronic coughing CINV (chemotherapy-induced nausea and vomiting) Diastolic hypertension Encounter for education Fatty tumor Former smoker Herpes zoster Hoarseness Hypercholesteremia Hyponatremia Keratosis pilaris Lipoma Low serum HDL Maculopapular rash 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 Rapid weight loss Regional lymph node metastasis present Shortness of breath on exertion Stomatitis Home Medications fentanyl 12 mcg/hr transdermal patch See Rx Instructions .Route .COMPLEX chronic pain 01/15/23 [History Last Taken 01/18/23 23:00] folic acid 1 mg tablet 1 mg PO DAILY supplement 01/20/23 [History Last Taken Unknown] ondansetron 8 mg disintegrating tablet 8 mg PO Q8H nausea 01/20/23 [History Last Taken Unknown] Allergy/AdvReac Type Severity Reaction Status Date / Time No Known Allergies Allergy Verified 01/20/23 16:05 Family History Aunt Cancer paternal - unknown type Sister Lymphoma T-cell Non Hodgkin's Social History household members: spouse Smoking Status: Former smoker Tobacco: How many years used: 8 how long ago did patient quit smoking: quit 30 years ago Diagnosis: Nathaniel Montejo is a 52-year-old male diagnosed with stage IVB lung adenocarcinoma status post chest x-ray (10/22/2022), CT-guided biopsy left lung lesion (11/13/2022), PET scan (12/03/2022), and brain MRI (12/18/2022).? He started carboplatin/Alimta on 12/26/2022 and due to worsening pain and shortness of breath was admitted to the hospital on 01/20/[address] chest demonstrated evidence of disease progression with increased left pleural effusion, obstruction with upper and lower lung collapse and concern for postobstructive pneumonia. History of Present Illness: 10/22/2022: Chest x-ray was completed due to having cough.? This demonstrated evidence of a hilar mass on the left with postobstructive pneumonitis in left upper lobe, correlation with CT is recommended. 11/13/2022: Patient completed CT-guided biopsy of the left lung lesion.? Pathology demonstrated non-small cell carcinoma with extensive necrosis, favoring metastatic adenocarcinoma consistent with lung primary 12/03/2022: PET scan was performed.? This demonstrated increased radiopharmaceutical concentration defined in the left upper hemithorax pulmonary parenchyma left upper lobe for filling quantitative criteria for viable neoplasm.? There is also viable neoplasm demonstrated in the mediastinal structures and bilateral thoracic perihilum.? There is increased uptake distributed to the bilateral adrenal glands as well as retroperitoneal hypermetabolic abdominal adenopathy.? There is also evidence for diffuse appendicular and axial skeletal metastatic disease. 12/18/2022: Brain MRI was performed.? This demonstrated a 3 x 5 mm nodular enhancing lesion with mild surrounding edema in the right occipital lobe seen on image 4 of series 11 image 53 of series 12.? This is suspicious for metastatic disease.? No other lesions are noted. 12/26/2022: received first cycle of carbo/Alimta 01/20/2023: CT chest with contrast was performed.? This demonstrated a left upper lung/perihilar and superior mediastinal confluent mass measuring 13 x 12 cm increased in size from the prior study in November, this is replaced in the left upper lobe and in continuity with the left mediastinum slightly narrowing the aortic arch and obliterating the left upper lobe bronchus.? There is moderate layering left pleural effusion with compressive atelectasis of the left lower lobe.? There is medial right upper lobe and lateral right middle lobe centrilobular nodular airspace disease.? There is also interval enlargement of the bilateral adrenal masses and upper abdominal adenopathy. Radiation Treatment History: No prior history of radiation therapy. No pacemaker. No diagnosis of radiosensitizing comorbidity. Interval History: Patient was seen for inpatient consultation. He does report having worsening shortness of breath over the last several weeks, he does also have severe multifocal back pain particularly worse on the left under his scapula. He pedraza occasional cough but no hemoptysis. He has had hoarseness for about the last 2 months. He does come in with a fever of about 102.7 and is being treated with antibiotics for presumed postobstructive pneumonia. He is currently on 2 L of oxygen and does not have much shortness of breath at rest but when he moves he does get a lot more shortness of breath and goes up to 5 L of oxygen. He also reports fairly decent pain control when he finds a comfortable position and stays still but pain spikes to at least 7?10/10 with any movement. He is taking fentanyl 25 mcg patch and also Dilaudid for breakthrough pain. Worst pain is in the left mid back below his scapula. He denies having dysphagia or odynophagia. He is eating a regular diet fairly well, appetite is somewhat low. He denies headaches, vision changes, focal weakness/numbness, nausea/vomiting. He denies having other problems or concerns at this time. Review of Systems: A 12-point review of systems was completed and was negative except for what is noted in the HPI/Interval History and by the nurse. Physical Exam: Weight: 188 lbs 9 oz ECO KARNOFSKY SCORE: 60% CONSTITUTIONAL: Well-developed, well-nourished, and in no apparent distress. NECK: Supple, no thyromegaly, and non-tender. Trachea midline. No cervical or supraclavicular adenopathy noted. CARDIAC: Regular rate and rhythm. Normal S1, S2. No murmurs, rubs, or gallops. PULMONARY/CHEST: Reduced breath sounds within the entire left lung mcnamara, increased crackles as well. Otherwise right lung is clear without rhonchi, crackles, wheezing. No increased work of breathing at rest. Using 2 L oxygen by nasal cannula. ABDOMINAL: Abdomen soft, non-tender, non-distended. No hepatomegaly. Normoactive bowel sounds in all four quadrants. No guarding, rebound. BACK: Straight and aligned. No CVA tenderness. Severe pain is noted with palpation of the left mid ribs below the left scapula this is a point tenderness, there is also pain noted on the right thoracic spine. Otherwise axial skeleton non-tender to percussion. EXTREMITIES: Full range of motion in all four extremities. No evidence of edema. NEUROLOGICAL EXAM: Alert and oriented x 3. Answers questions and follows c ommands appropriately. Cranial nerves II through XII are grossly intact. No focal neurological deficit. Speech is fluent. Muscle strength is 5/5 in all muscle groups. Gait and posture without abnormality. PSYCHIATRIC: Appropriate mood and affect for the clinical situation. Imaging: As per HPI Laboratory Data: 01/21/2023: WBC 31.2, hemoglobin 9.1, ANC 24.8, otherwise unremarkable Assessment & Plan Assessment/Plan (1) Cancer of left lung: (2) Adenocarcinoma of lung, stage 4: PLAN: Plan Assessment: Nathaniel Montejo is a 52-year-old male diagnosed with stage IVB lung adenocarcinoma status post chest x-ray (10/22/2022), CT-guided biopsy left lung lesion (11/13/2022), PET scan (12/03/2022), and brain MRI (12/18/2022).? He started carboplatin/Alimta on 12/26/2022 and due to worsening pain and shortness of breath was admitted to the hospital on 01/20/[address] chest demonstrated evidence of disease progression with increased left pleural effusion, obstruction with upper and lower lung collapse and concern for postobstructive pneumonia. Plan: Patient was seen as an inpatient consultation due to having worsening shortness of breath, pain, and postobstructive pneumonia with obstruction likely secondary to worsening adenocarcinoma progression. He received 1 cycle of carbo/Alimta on 26 December and then had delayed due to having an infected port which was exchanged. We will comparing the CT chest completed prior to starting chemotherapy as well as the PET scan prior to starting chemotherapy with a CT chest completed on 01/20/2023 there does appear to be significant progression of disease resulting i n worsening obstruction and atelectasis of the left lower lobe with disease replacing most of the left upper lobe, there is also progression of bilateral adrenal metastases as well as abdominal and mediastinal adenopathy, pleural effusion has also increased in size. I reviewed his MRI brain completed in November which demonstrated a very small solitary lesion consistent with metastatic disease and he is planning for repeat MRI in the near future for observation given the extensive disease extracranially and lack of symptoms. We had an extensive discussion regarding the imaging findings and the potential treatment options for malignant obstruction. Also discussed with pulmonology about the potential option for bronchoscopy and stent placement. Pulmonology also discussed with the patient these options. We reviewed the potential use of palliative radiation therapy to the sites of thoracic disease in an effort to shrink down the cancer and relieve obstruction allowing for lung expansion which will likely allow the pleural effusion to be drained because it is likely secondary to central obstruction. We discussed that given that this is adenocarcinoma the timing of response to radiation is unknown and may take several weeks and also that given the large volume of disease it is unclear how much response he will have from palliative treatment. We reviewed that the potential use of a stent can likely expand his airway sooner but given the extent of disease it is very unlikely a stent approach will be successful, this is determined after discussing with pulmonary. Patient was given the option to be transferred to a tertiary care facility for further evaluation and potentially bronchoscopy and stent placement but he has declined. He was scheduled to have cycle 2 of chemotherapy later this week but given his fever and pneumonia we will plan to hold, he is getting antibiotics for pneumonia at this time. His pain control is improving with the addition of Dilaudid. We also reviewed the potential use of palliative radiation therapy to the spine if there is disease in the area where he is having his discomfort. I reviewed the logistics of palliative thoracic radiation including CT simulation, treatment planning, and likely 10?15 fractions of radiation. I discussed the risk, benefits, alternatives to palliative radiation therapy and reviewed treatment goals which are to improve his current symptoms and provide increased thoracic disease control allowing his airway to remain open, we reviewed that the success of this treatment is by no means guaranteed. We reviewed the potential acute and chronic toxicities to palliative thoracic radiation therapy to the lung and potentially spine and this would include but is not limited to fatigue, skin irritation, cough, pneumonitis, esophagitis, pericarditis, chest wall pain/rib fracture risk, reduced white blood cell count, nerve damage, risk of radiation-induced heart disease, secondary malignancy, esophageal stenosis. Following our discussion the patient desired to proceed with palliative radiation therapy and informed consent was obtained. CT simulation was completed today without any difficulty and we will plan to expedite treatment start within the next 24 to 48 hours. Patient was instructed to call with any further questions or concerns in the interim. Thank you for allowing me to participate in the management and care of your patient. If I may answer any questions in the interim, please do not hesitate to contact me at any time. Randy Montes DO, MS Dishroom Attendant, Department of Radiation Oncology [facility] Coding Level of Care Code Off vis,new,level 5 Exam Problem Focused Diagnoses Cancer of left lung C34.92 Adenocarcinoma of lung, stage 4 C34.90
[2023-01-21] MEDS: Ondansetron 8 MG Tablet PO (10:50)
--- NOTE | 2023-01-21 14:38 | CASEMGMT ---
CHAPARRO AGUILAR Assessment: Face to Face with pt for initial transition planning/care coordination assessment. RN JEFF introduced self and role at [facility], pt voices understanding and consents to assessment. Pt is A/O x4 and answers all questions appropriately at this time. Pt lying in bed with oxygen on in no distress with at bedside. Care providers, pharmacy, and demographics verified/updated. Admitting Dx: PNA PCP:[facility] Specialists: Katarina, pulm; Christina, onc; Basali, pain mgmt [facility]erred [facility]acy: [facility] Insurance: [employer] Prescription Benefit: yes LNOK: Ghada Montejo, Living Arrangements: Pt lives with and dtr in a single story home with 2 steps to enter without a rail. Pt reports most days he is I in ADL's and denies concerns at home. Pt provides meals and laundry tasks. Transportation: Pt transports pt to medical appts. DME/HHC/SNF: Pt has oxygen at 2L cont through [employer] and [facility]. Pt denies hx of HHC and SNF stays. Pt states no concerns with going home at time of dc. Pt feels his strength is good and denies need for therapy. Pt states no further concerns/needs. CM to follow. Advised pt to ask CM if any further question/concerns/needs arise, voices understanding. Pt Goal: Home Plan: Home, follow for increased oxygen needs
--- NOTE | 2023-01-21 18:00 | PN.HOSP_ITS ---
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 I had pulmonary medicine see the patient today due to his postobstructive pneumonia, radiation oncology also saw the patient today and recommended to pr oceed with radiation to the left lung area in an effort to ameliorate his bronchial obstruction. I talked with his who is in the room at the time my examination today. Objective Data Objective Data Vital Signs: Vital Signs Temp Pulse Resp BP Pulse Ox O2 Del Method O2 Flow Rate 99.0 F 118 H 20 H 124/90 H 99 Nasal Cannula 2 01/21/23 16:28 01/21/23 16:28 01/21/23 16:28 01/21/23 16:28 01/21/23 16:28 01/21/23 16:28 01/21/23 16:28 Oxygen Flow Rate (L/min) 2 Oxygen Delivery Method Nasal Cannula Weight: 85.548 kg Body Mass Index (BMI) 26.3 Intake & Output: Intake and Output for Last 24 Hours 01/19/23 01/20/23 01/21/23 23:59 23:59 23:59 Intake Total 1100 / 1100 1105 / 1105 Balance 1100 / 1100 1105 / 1105 Medical Nutrition Assessment Dietitian: Malnutrition Criteria Met Start: 01/21/23 16:54 Freq: Status: Active Protocol: Document 01/21/23 16:54 RMA (Rec: 01/21/23 16:54 RMA [id number]) Nutrition Malnutrition Evidence of Malnutrition Exists Yes Malnutrition (severe): Acute Illness/Injury Evidenced By Suboptimal Energy Intake ( Severe),Weight Loss (Severe) Intake Problem Increased Nutrient Needs (specify) Etiology for protein/calories related to increased energy expenditure due to metastatic disease Signs/Symptoms as evidenced by unintentional weight loss 5% x 1 month and poor PO <50% meals Status Active Problem Clinical Problem Acute Disease or Injury Related Malnutrition Etiology Severe protein-calorie malnutrition in the context of acute/metastatic disease newly diagnosed related to inctreased energy expenditure and inadequate oral/energy intake Signs/Symptoms as evidenced by ~5% unintentional weight loss x 1 month and PO meeting less than 50% estimated nutrition needs x 1 month Status Active Problem Recommendation Dietitian Recommendations/Changes Continue liberalized regular diet. Continue 120mL ensure plus high protein TID w/ medpass. Will add 240 mL ensure clear w / breakfast, magic cup dessert w/ lunch and 240 mL ensure plus high protein w/ dinner as tolerated. Will adjust ONS as needed to help optimize oral intake and limit further unintentional weight loss. Lab / Micro Data Result Diagrams: 01/21/23 06:10 01/21/23 06:10 Labs: Laboratory Results - last 24 hr 01/20/23 18:00: WBC 35.3 H*, RBC 3.71 L, Hgb 10.8 L, Hct 33.7 L, MCV 90.8, MCH 29.1, MCHC 32.0, RDW Std Deviation 50.2 H, RDW Coeff of Angelica 15.9 H, Plt Count 355, MPV 8.6, Immature Gran % (Auto) 2.800 H, Neut % (Auto) 80.3 H, Lymph % (Auto) 3.5 L, [place] % (Auto) 12.5 H, Eos % (Auto) 0.1, Baso % (Auto) 0.8, Absolute Neuts (auto) 28.3 H, Absolute Lymphs (auto) 1.25, Nucleated RBC % 0.1, Differential Comment SCANNED, Diff Path Review November01/20/23 18:00: Sodium 128 L, Potassium 5.0, Chloride 92 L, Carbon Dioxide 29.0, Anion Gap 7, BUN 17, Creatinine 1.13, Estim Creat Clear Calc 82.37, Est GFR (MDRD) Af Amer 88, Est GFR (MDRD) Non-Af 73, BUN/Creatinine Ratio 15.0, Glucose 103, Calcium 10.4 H, Total Bilirubin 0.60, AST 98 H, ALT 21, Alkaline Phosphatase 202 H, Total Protein 7.7, Albumin 2.2 L, Globulin 5.5 H, Albumin/Globulin Ratio 0.4 L 01/20/23 18:00: Lactic Acid 1.5 01/20/23 19:40: Urine Color Yellow, Urine Clarity Clear, Urine pH 5.0, Ur Specific [place] 1.020, Urine Protein 30 H, Urine Glucose (UA) Normal, Urine Ketones 50 H, Urine Occult Blood 10 H, Urine Nitrite Negative, Urine Bilirubin 1 H, Urine Urobilinogen 1 H, Ur Leukocyte Esterase 25 H, Urine RBC 0-5 SEEN, Urine WBC 0-5 SEEN, Ur Squamous Epith Cells 0 SEEN, Urine Bacteria 1+, Hyaline Casts 0-5 SEEN, Urine Mucus RARE 01/21/23 06:10: WBC 31.2 H*, RBC 3.04 L, Hgb 9.1 L, Hct 27.7 L, MCV 91.1, MCH 29.9, MCHC 32.9, RDW Std Deviation 49.8 H, RDW Coeff of Angelica 15.8 H, Plt Count 308, MPV 8.8, Immature Gran % (Auto) 2.700 H, Neut % (Auto) 79.6 H, Lymph % (Auto) 3.5 L, [place] % (Auto) 13.4 H, Eos % (Auto) 0.2, Baso % (Auto) 0.6, Ab solute Neuts (auto) 24.8 H, Absolute Lymphs (auto) 1.10, Nucleated RBC % 0, Differential Comment SCANNED, Diff Path Review November01/21/23 06:10: Sodium 132 L, Potassium 4.6, Chloride 99, Carbon Dioxide 29.0, Anion Gap 4 L, BUN 16, Creatinine 0.98, Estim Creat Clear Calc 94.98, Est GFR (MDRD) Af Amer 104, Est GFR (MDRD) Non-Af 86, BUN/Creatinine Ratio 16.3, Glucose 110 H, Calcium 9.5 Radiography Diagnostic Testing: Radiology Impression Chest X-Ray 01/20/23 18:55 IMPRESSION: Persistent opacification of left hemithorax secondary to airspace disease and possible effusion. Electronically Signed: Sal Vega MD at 19:18 EDT , Chest CT 01/20/23 20:29 IMPRESSION: Increased size of left perihilar 13.3 cm mass abutting and possibly extending into the left superior mediastinum with mild narrowing of the aortic arch and obliteration of left upper lobe bronchus. Interval enlargement of bilateral adrenal masses and upper abdominal adenopathy. Increased centrilobular nodularity within the lateral right upper lung and peripheral right lower lobe of uncertain significance, possibly atypical infection or metastatic neoplastic disease. New small pericardial effusion. Electronically Signed: Holden Brambila MD at 22:20 EDT , ADDENDUM: 01/20/232233 IMPRESSION: undefined Rhythm Strip Rhythm Strip: Sinus Tach Rate: 114 Ectopy: None Physical Exam Const alert and oriented x3 General Appearance: cooperative, well kempt and well developed Orientation / Consciousness: awake, oriented to person, oriented to place and oriented to time HEENT normocephalic, head/scalp atraumatic and moist oral mucous membranes Eyes PERRL, EOMs intact bilaterally and conjunctivae normal Neck supple, no JVD, thyroid normal and no carotid bruits General: trachea midline Resp normal respiratory effort, no retractions and no use of accessory muscles Resp Narrative: Decreased breath sounds are noted over the left lung mcnamara Auscultation: Negative for rales, rhonchi or wheezes Cardio regular rate, regular rhythm, S1 normal heart sound, S2 normal heart sound, no murmurs, no rub and no gallops GI normal to inspection, nondistended, normoactive bowel sounds, soft to palpation, non-tender and non-distended Extremity no clubbing, cyanosis or edema Skin no rashes or lesions noted General Skin Exam: no breakdown Neuro oriented x3, CN's II-XII intact bilaterally, moves all extremities, no focal motor deficits and no sensory deficits noted Sensorium / Orientation: awake and alert Speech: speech normal Psych affect normal Assessment & Plan Assessment/Plan (1) Postobstructive pneumonia: PLAN: Plan 1. 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 Total clinical time spent by myself addressing the patient's medical issues, reviewing all of his data, and collaborating with patient's care team: 35 minutes Charges/Coding Visit Charges Inpatient E&M: 21578 Subs Hosp L2
[2023-01-22 01:58] VITALS: BP 126/79; PULSE 116; RESP 20; TEMP 37.3; O2SAT 96
[2023-01-22 07:20] LABS: Absolute Lymphocyte Count 1.37 X10^3/uL (0.83-4.51); Absolute Neutrophil Count 20.8 X10^3/uL (2.0-7.7); Basophil# 0.19 X10^3/uL; Basophil% 0.7 % (0-1); Eosinophil# 0.14 X10^3/uL; Eosinophils% 0.5 % (0-5); Hematocrit 27.6 % (40-54); Hemoglobin 8.8 g/dL (13.0-16.5); Lymphocyte # 1.37 X10^3/ul (0.83-4.51); Mean Corp Hgb Conc 31.9 g/dL (32-36); Mean Corpuscular Hgb 29.5 pg (27.0-32.0); Mean Corpuscular Volume 92.6 fL (80-94); Mean Platelet Vol. 9.3 fl (6.2-12.0); Monocyte# 3.69 X10^3/uL; Monocyte% 13.5 % (0-10); NRBC Flagged by Analyzer 0.1 % (0-5); Neutrophil # 20.84 X10^3/uL (2.7-7.7); Neutrophil % 76.3 % (47-70); POSITIVE DIFFERENTIAL YES; Platelet Count 324 K/mm3 (150-450); RBC Distribution Width CV 15.9 % (11.6-14.6); RBC Distribution Width SD 50.9 fl (35.1-43.9); Red Blood Count 2.98 M/mm3 (4.6-6.2); White Blood Count 27.3 K/mm3 (4.4-11.0)
--- NOTE | 2023-01-22 07:22 | PCM.PN.INT ---
Assessment & Plan Assessment/Plan (1) Postobstructive pneumonia: PLAN: Plan RECOMMENDATIONS: 1. Wean supplemental oxygen to maintain saturations at or above 90%. 2. Okay to transition to Levaquin to complete 7 additional days of therapy. 3. Continue management of underlying malignancy per oncology and radiation oncology. 4. Recommend outpatient pulmonary follow-up in approximately 2 weeks. 5. We will sign off from a pulmonary perspective. Please call with any additional questions. IMPRESSIONS: 1. Postobstructive pneumonia The patient initially presented with worsening shortness of breath and fever in the setting of worsening adenocarcinoma involving the left hilum with extensive mediastinal infiltration and compression of the left tracheobronchial tree. At the present time, the patient is maintaining appropriate saturations on his baseline 2 L/min requirement. He is on appropriate broad-spectrum antimicrobials. The patient completed his radiation simulation and will be started on therapy soon. He should resume systemic chemotherapy as soon as feasible after he has completed treatment for his underlying infection. If the patient does not achieve any significant response to the aforementioned interventions, consideration could be given to referral on an outpatient basis to interventional pulmonary in [place] or [place] for potential airway evaluation, tumor debulking and/or stent placement. From my perspective, the patient to be discharged home on Levaquin to complete 7 additional days of therapy. He will need to be follow-up closely in the pulmonary medicine clinic on an outpatient basis. This note was generated with [employer] dictation software. It may contain incorrect words, spelling, and punctuation that were not noted in checking the note before signing. Subjective Subjective The patient was seen and examined at the bedside this morning. Events from the last 24 hours have been reviewed. The patient is currently afebrile, hemodynamically stable and maintaining appropriate oxygen saturations on 3 L/min via nasal cannula. The patient completed his radiation simulation yesterday. He does report some pleuritic type chest discomfort. Objective Data Objective Data The patient's most recent lab work, culture data and imaging studies have all been personally reviewed. Vital Signs: Vital Signs Temp Pulse Resp BP Pulse Ox O2 Del Method O2 Flow Rate 99.2 F H 116 H 20 H 126/79 H 96 Nasal Cannula 3 01/22/23 01:58 01/22/23 01:58 01/22/23 01:58 01/22/23 01:58 01/22/23 01:58 01/22/23 01:58 01/22/23 01:58 Oxygen Flow Rate (L/min) 3 Oxygen Delivery Method Nasal Cannula Weight: 188 lb 9.617 oz Body Mass Index (BMI) 26.3 Intake & Output: Intake and Output for Last 24 Hours 01/20/23 01/21/23 01/22/23 23:59 23:59 23:59 Intake Total 1100 / 1100 1355 / 1355 Balance 1100 / 1100 1355 / 1355 Medical Nutrition Assessment Dietitian: Malnutrition Criteria Met Start: 01/21/23 16:54 Freq: Status: Active Protocol: Document 01/21/23 16:54 RMA (Rec: 01/21/23 16:54 RMA [id number]) Nutrition Malnutrition Evidence of Malnutrition Exists Yes Malnutrition (severe): Acute Illness/Injury Evidenced By Suboptimal Energy Intake ( Severe),Weight Loss (Severe) Intake Problem Increased Nutrient Needs (specify) Etiology for protein/calories related to increased energy expenditure due to metastatic disease Signs/Symptoms as evidenced by unintentional weight loss 5% x 1 month and poor PO <50% meals Status Active Problem Clinical Problem Acute Disease or Injury Related Malnutrition Etiology Severe protein-calorie malnutrition in the context of acute/metastatic disease newly diagnosed related to inctreased energy expenditure and inadequate oral/energy intake Signs/Symptoms as evidenced by ~5% unintentional weight loss x 1 month and PO meeting less than 50% estimated nutrition needs x 1 month Status Active Problem Recommendation Dietitian Recommendations/Changes Continue liberalized regular diet. Continue 120mL ensure plus high protein TID w/ medpass. Will add 240 mL ensure clear w / breakfast, magic cup dessert w/ lunch and 240 mL ensure plus high protein w/ dinner as tolerated. Will adjust ONS as needed to help optimize oral intake and limit further unintentional weight loss. Lab / Micro Data Attestation: I reviewed the patient's lab results. 01/22/23 06:30 01/22/23 06:30 Rhythm Strip Rhythm Strip: Sinus Tach Rate: 114 Ectopy: None Physical Exam Const alert and no apparent distress Constitutional Narrative: is present at the bedside. General Appearance: cooperative HEENT normocephalic and head/scalp atraumatic HEENT Narrative: Vocal hoarseness present Eyes PERRL, EOMs intact bilaterally and conjunctivae normal Neck supple General: trachea midline Chest inspection of chest normal Chest Narrative: Stable chest wall port. Resp Auscultation: diminished lung sounds left; Negative for rales, rhonchi or wheezes Cardio regular rate and regular rhythm GI normal to inspection, nondistended, normoactive bowel sounds Extremity no clubbing, cyanosis or edema Skin no rashes or lesions noted Neuro oriented x3, CN's II-XII intact bilaterally, moves all extremities and no focal motor deficits Psych cooperative and affect normal Charges/Coding Visit Charges Inpatient E&M: 77219 Subs Hosp L2
[2023-01-22 07:31] LABS: Differential Indicated SCAN CRITERIA MET
[2023-01-22 08:01] VITALS: O2SAT 95
[2023-01-22 08:05] LABS: ALB/GLOB Ratio 0.4 RATIO (0.9-2.4); AST(SGOT) 70 U/L (15-37); Alanine Aminotransfer ALT/SGPT 16 U/L (16-61); Albumin, Serum 1.8 g/dL (3.2-5.0); Alkaline Phosphatase 150 U/L (45-117); Anion Gap 7 (5-15); BUN 15 mg/dL (7-18); Calcium,Total 10.6 mg/dL (8.5-10.1); Chloride 94 mmol/L (98-107); Creatinine, Serum 0.94 mg/dL (0.70-1.30); EST Glomerular Filtration Rate 90 mL/min (>60); Est Glom Filt Rate - Afr Amer 109 mL/min (>60); Estimated Creatinine Clearance 99.02 ml/min; Glucose 109 mg/dL (74-106); Potassium 4.7 mmol/L (3.5-5.1); Protein, Total 6.8 g/dL (6.4-8.2); Sodium Level 129 mmol/L (136-145)
[2023-01-22] MEDS: HYDROmorphone 1 MG/ML Syringe IV ×3 (08:54→14:57)
[2023-01-22] MEDS: 0.9% Saline Lock 10 ML Syringe IV ×2 (08:56→15:18)
[2023-01-22] MEDS: Ensure Plus High Protein 120 ML LIQUID PO ×2 (09:03→11:41)
[2023-01-22] MEDS: Enoxaparin 40 MG/0.4 ML Syringe SC (09:04)
[2023-01-22 09:18] VITALS: BP 141/94; PULSE 125; RESP 26; TEMP 37.6; O2SAT 96
[2023-01-22 09:43] LABS: Pathologist Review Reviewed
[2023-01-22 09:44] LABS: Pathologist Review Reviewed
[2023-01-22 10:22] LABS: Vancomycin, Trough Level 6.5 ug/mL (5.0-15.0)
[2023-01-22] MEDS: Folic Acid 1 MG Tablet PO (10:27)
[2023-01-22] MEDS: Lactulose 20 GM/30 ML UDC 30 GM PO (10:35)
[2023-01-22] MEDS: Vancomycin IV 1,000 MG/200 ML BAG 200 MG IV (10:40)
--- NOTE | 2023-01-22 10:50 | PCM.RX.CS ---
Consult Antibiotic Management Pharmacy has been consulted to manage selected antiobiotic: Vancomycin Type of Intervention Type of Consult: Follow-up Suspected Infection Suspected Infection: Pneumonia Prior Doses of Antibiotics Prior Doses of Antibiotics Received/Current Regimen: current dose is 1000mg IV q12h Labs Labs: Sodium 129 mmol/L (136-145) L 01/22/23 06:30 Potassium 4.7 mmol/L (3.5-5.1) 01/22/23 06:30 Chloride 94 mmol/L (98-107) L 01/22/23 06:30 Carbon Dioxide 28.0 mmol/L (21.0-32.0) 01/22/23 06:30 Anion Gap 7 (5-15) 01/22/23 06:30 BUN 15 mg/dL (7-18) 01/22/23 06:30 Creatinine 0.94 mg/dL (0.70-1.30) 01/22/23 06:30 Est GFR (MDRD) Af Amer 109 mL/min (>60) 01/22/23 06:30 Est GFR (MDRD) Non-Af 90 mL/min (>60) 01/22/23 06:30 BUN/Creatinine Ratio 16.0 RATIO (10-20) 01/22/23 06:30 Glucose 109 mg/dL (74-106) H 01/22/23 06:30 Vancomycin Trough 6.5 ug/mL (5.0-15.0) 01/22/23 09:30 Microbiology Microbiology: Microbiology 01/20/23 19:40 Urine, Clean Catch Urine Culture - Final Culture exhibits no growth. Dosing Weight Weight used for dosin.5 kg Estimated Creatinine Clearance Estimated Creatinine Clearance: 99ml/min Goal Trough Goal Trough: 10-15 mcg/mL Pharmacy Plan for Drug Dosing Pharmacy Plan for Drug Dosing: The vanc trough drawn at 09:30 today (approx 12.5 hrs after the previous dose) was 6.5. This is below goal so will increase next dose to 1500mg IV q12h starting tonight at 18:00 since this morning's dose has already been started. Repeat a trough before the 4th dose. Pharmacy Service will continue to monitor and adjust dosing as required. Follow-Up Labs Follow-Up Labs: Trough: Vancomycin Date/Time Labs Ordered Labs to be done on [date and time ordered]: 01/24/23 05:30
--- NOTE | 2023-01-22 11:56 | DCINST_ITS ---
Discharge Instructions Diet Discharge Diet: No restrictions Activity Discharge Activity: Return to Normal Activity Weight Bearing Status: Full weight bearing Follow Up Care Test Results: Test results from this visit will be discussed in further detail at your follow- up appointment, if applicable. Discharge Plan Admission Admit Date/Time: 01/21/23 03:27 Primary Reason for Your Visit: Left-sided postobstructive pneumonia Attending Provider: Nathaniel Corbin Primary Care Provider: Av Barros Consulting Providers: Jefry Fuchs; Anthony Mejias; Mark Mixon; Denis Bee; Duglas Gardner; Shobha Chowdhury NP; Randy Montes Instructions Additional Instructions / Restrictions: Continue home oxygen as instructed Follow-up for radiation at Dr. Montes's office as instructed Discharge Orders/Prescriptions Prescriptions: New acetaminophen 325 mg Tablet 650 mg PO Q6H PRN PRN (Reason: Pain 1-10 Or Fever) Qty: 1 0RF mirtazapine 15 mg Tablet 30 mg PO QHS Qty: 60 0RF fentanyl 25 mcg/hr Patch 72 Hour 25 mcg transdermal Q3D 30 Days Qty: 10 0RF levofloxacin 750 mg tablet 750 mg PO DAILY Qty: 10 0RF Rx Instructions: Start on 01/22/2023 hydromorphone [Dilaudid] 2 mg tablet 2 mg PO Q4H 7 Days Qty: 42 0RF Rx Instructions: 2-4 mg every four hours as needed for breakthrough pain-May take with 1 Aleve, with maximal amount of Aleve per day at 4 pantoprazole [Protonix] 40 mg tablet,delayed release (DR/EC) 40 mg PO DAILY Qty: 30 0RF lactulose 20 gram/30 mL solution 20 g PO BID Qty: 1200 0RF Rx Instructions: take one to two times daily for treatment of constipation Continued ondansetron 8 mg tablet,disintegrating 8 mg PO Q8H Patient Comments: DISSOLVE 1 TABLET IN MOUTH EVERY 8 HOURS NEEDED FOR NAUSEA AND VOMITING folic acid 1 mg tablet 1 mg PO DAILY Patient Comments: TAKE 1 TABLET BY MOUTH ONCE DAILY Discontinued fentanyl 12 mcg/hr patch 72 hour See Rx Instructions .ROUTE .COMPLEX Rx Instructions: 2 patch transdermally Q3 days Referrals / Follow Up: Av Barros MD [Primary Care Provider] - Denis Bee MD [Med Staff - Active Staff] - See Referral Note (Follow-up as scheduled) Lissette Vasquez MD [Med Staff - Active Staff] - See Referral Note (As s cheduled) Randy Montes DO [Med Staff - Active Staff] - See Referral Note (As scheduled) Disposition Disposition (needs filled in before D/C Order can be placed): Home, Self Care
--- NOTE | 2023-01-22 12:15 | DS.PCM_ITS ---
Providers Date of Admission: 01/21/23 Date of Discharge: 01/22/23 Primary Care Physician: Dr. Av Barros MD Consultations 01/21/23 07:47 Consult: Vice President Of Customer Service / Pulmonary Medicine Routine Consulting Provider: Pulmonary Medicine laura Kunz Reason for Consult: PNEUMONIA EMERGENT Consult: No Notified: Yes Date Notified: 01/21/23 Time Notified: 07:51 Method of Notification: Verbal 01/21/23 12:17 Consult: Oncology Radiation [Consult: Radiation Oncology] Routine Consulting Provider: Randy Montes Reason for Consult: lung cancer EMERGENT Consult: No Notified: Yes Date Notified: 01/21/23 Time Notified: 12:18 Method of Notification: Verbal Reason For Visit: MURRAY Diagnosis Discharge Diagnosis (1) Postobstructive pneumonia: Status: Acute Code(s): J18.9 - Pneumonia, unspecified organism Plan 1. 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 Total clinical time spent by myself addressing the patient's medical issues, reviewing all of his data, and collaborating with patient's care team: 35 minutes Medications at Discharge Home Medications folic acid 1 mg tablet 1 mg PO DAILY supplement 01/20/23 ondansetron 8 mg disintegrating tablet 8 mg PO Q8H nausea 01/20/23 acetaminophen 325 mg tablet 650 mg (2 x 325 mg) PO Q6H PRN PRN Pain 1-10 Or Fever #1 TAB 01/22/23 fentanyl 25 mcg/hr transdermal patch 25 mcg transdermal Q3D 30 days #10 ea 01/22/23 hydromorphone 2 mg tablet (Dilaudid) 2 mg PO Q4H 7 days #42 tabs 01/22/23 lactulose 20 gram/30 mL oral solution 20 g (30 mL) PO BID #1,200 mL 01/22/23 levofloxacin 750 mg tablet 750 mg PO DAILY #10 tabs 01/22/23 mirtazapine 15 mg tablet 30 mg (2 x 15 mg) PO QHS #60 tabs 01/22/23 pantoprazole 40 mg tablet,delayed release (Protonix) 40 mg PO DAILY #30 tabs 01/22/23 Hospital Course Operations None Procedures None Summary of Care Provided Minutes Spent on Discharge: 31 Hospital Course: This 52-year-old white male was seen in the emergency room at [facility] with complaints of fever. Patient had been undergoing outpatient chemotherapy for stage IV adenocarcinoma of the lung and his last chemotherapy had been 4 weeks previous. Patient's fever at home have been 10 to 2.7, work-up in the emergency room included a CBC which showed an elevated white blood cell count at 35.3, hemoglobin was 10.8, patient's sodium was 128, patient's chest x- ray showed persistent opacification of the left hemithorax secondary to airspace disease possible effusion, patient's chest CT showed a 13.3 cm mass abutting and possibly extending into the left superior mediastinum with mild narrowing of the aortic arch and obliteration of the left upper lobe bronchus. There is also noted to be interval enlargement of bilateral adrenal masses and upper abdominal adenopathy. Patient was admitted to [place] [address], placed on IV antibiotics and seen in consultation by pulmonary medicine and radiation oncology. Pain was controlled with narcotics. It was recommended that the patient undergo radiation treatment and he was ported for outpatient radiation treatment. Pulmonary medicine felt that the patient would not benefit from a pulmonary stent placement and recommended that the patient could be discharged home on outpatient antibiotics. I also called the patient's pain management physician (Dr. Garcia) to notify him that I would be writing for pain medications for the patient as an outpatient. On 01/22/2023, patient was seen and examined: On examination he appeared older than his stated age, he appeared somewhat frail. Vital signs as documented. Skin warm and dry and without overt rashes. Neck without JVD, neck was supple, trachea midline, thyroid was normal. Patient's voice was hoarse and faint. Lungs-breath sounds were diminished over the left lung Heart exam notable for regular rhythm, normal sounds and absence of murmurs, rubs or gallops. Abdomen unremarkable and without evidence of organomegaly, masses, or abdominal aortic enlargement. Bowel sounds are present, abdomen is not distended. Extremities nonedematous, no cyanosis was noted, no clubbing was noted. Neuro: Cranial nerves II through XII are grossly intact, no focal motor deficits were noted, sensation to light touch and pinprick intact, motor exam 5/5 throughout. Psych: Patient is alert and oriented x3, he does not appear anxious Patient was discharged home in stable condition on 01/22/2023, overall prognosis due to extensive stage IV adenocarcinoma of the lung was poor overall. Patient will start radiation treatment on 01/23/2023. I had discussions concerning the patient's care with his who was in the room at the time my examinations. Medical Records Data Medical Nutrition Assessment Dietitian: Malnutrition Criteria Met Start: 01/21/23 16:54 Freq: Status: Active Protocol: Document 01/21/23 16:54 RMA (Rec: 01/21/23 16:54 RMA [id number]) Nutrition Malnutrition Evidence of Malnutrition Exists Yes Malnutrition (severe): Acute Illness/Injury Evidenced By Suboptimal Energy Intake ( Severe),Weight Loss (Severe) Intake Problem Increased Nutrient Needs (specify) Etiology for protein/calories related to increased energy expenditure due to metastatic disease Signs/Symptoms as evidenced by unintentional weight loss 5% x 1 month and poor PO <50% meals Status Active Problem Clinical Problem Acute Disease or Injury Related Malnutrition Etiology Severe protein-calorie malnutrition in the context of acute/metastatic disease newly diagnosed related to inctreased energy expenditure and inadequate oral/energy intake Signs/Symptoms as evidenced by ~5% unintentional weight loss x 1 month and PO meeting less than 50% estimated nutrition needs x 1 month Status Active Problem Recommendation Dietitian Recommendations/Changes Continue liberalized regular diet. Continue 120mL ensure plus high protein TID w/ medpass. Will add 240 mL ensure clear w / breakfast, magic cup dessert w/ lunch and 240 mL ensure plus high protein w/ dinner as tolerated. Will adjust ONS as needed to help optimize oral intake and limit further unintentional weight loss. Weight / BMI Weight Weight: 85.548 kg Body Mass Index (BMI) 26.3 ABG / Lab / Microbiology Data 01/22/23 06:30 01/22/23 06:30 Laboratory: Laboratory Results - last 24 hr 01/20/23 18:00: Diff Path Review Reviewed 01/21/23 06:10: Diff Path Review Reviewed 01/22/23 06:30: WBC 27.3 H, RBC 2.98 L, Hgb 8.8 L, Hct 27.6 L, MCV 92.6, MCH 29.5, MCHC 31.9 L, RDW Std Deviation 50.9 H, RDW Coeff of Angelica 15.9 H, Plt Count 324, MPV 9.3, Immature Gran % (Auto) 4.000 H, Neut % (Auto) 76.3 H, Lymph % (Auto) 5.0 L, Person % (Auto) 13.5 H, Eos % (Auto) 0.5, Baso % (Auto) 0.7, Absolute Neuts (auto) 20.8 H, Absolute Lymphs (auto) 1.37, Nucleated RBC % 0.1, Diff Path Review November, Sodium 129 L, Potassium 4.7, Chloride 94 L, Carbon Dioxide 28.0, Anion Gap 7, BUN 15, Creatinine 0.94, Estim Creat Clear Calc 99 .02, Est GFR (MDRD) Af Amer 109, Est GFR (MDRD) Non-Af 90, BUN/Creatinine Ratio 16.0, Glucose 109 H, Calcium 10.6 H, Total Bilirubin 0.40, AST 70 H, ALT 16, Alkaline Phosphatase 150 H, Total Protein 6.8, Albumin 1.8 L, Globulin 5.0 H, Albumin/Globulin Ratio 0.4 L 01/22/23 09:30: Vancomycin Trough 6.5 Microbiology: Microbiology 01/20/23 19:40 Urine, Clean Catch Urine Culture - Final Culture exhibits no growth. D/C Instructions Discharge Diet: No restrictions Weight Bearing Status: Full weight bearing Meaningful Use Info Meaningful Use Diagnoses (Choose all that apply): None applicable Discharge Plan Admission Admit Date/Time: 01/21/23 03:27 Primary Reason for Your Visit: Left-sided postobstructive pneumonia Attending Provider: Nathaniel Corbin Primary Care Provider: Av Barros Consulting Providers: Jefry Fuchs; Anthony Mejias; Mark Mixon; Denis Bee; Duglas Gardner; Shobha Chowdhury NP; Randy Montes Instructions Additional Instructions / Restrictions: Continue home oxygen as instructed Follow-up for radiation at Dr. Montes's office as instructed Discharge Orders/Prescriptions Prescriptions: New acetaminophen 325 mg Tablet 650 mg PO Q6H PRN PRN (Reason: Pain 1-10 Or Fever) Qty: 1 0RF mirtazapine 15 mg Tablet 30 mg PO QHS Qty: 60 0RF fentanyl 25 mcg/hr Patch 72 Hour 25 mcg transdermal Q3D 30 Days Qty: 10 0RF levofloxacin 750 mg tablet 750 mg PO DAILY Qty: 10 0RF Rx Instructions: Start on 01/22/2023 hydromorphone [Dilaudid] 2 mg tablet 2 mg PO Q4H 7 Days Qty: 42 0RF Rx Instructions: 2-4 mg every four hours as needed for breakthrough pain-May take with 1 Aleve, with maximal amount of Aleve per day at 4 pantoprazole [Protonix] 40 mg tablet,delayed release (DR/EC) 40 mg PO DAILY Qty: 30 0RF lactulose 20 gram/30 mL solution 20 g PO BID Qty: 1200 0RF Rx Instructions: take one to two times daily for treatment of constipation Continued ondansetron 8 mg tablet,disintegrating 8 mg PO Q8H Patient Comments: DISSOLVE 1 TABLET IN MOUTH EVERY 8 HOURS NEEDED FOR NAUSEA AND VOMITING folic acid 1 mg tablet 1 mg PO DAILY Patient Comments: TAKE 1 TABLET BY MOUTH ONCE DAILY Discontinued fentanyl 12 mcg/hr patch 72 hour See Rx Instructions .ROUTE .COMPLEX Rx Instructions: 2 patch transdermally Q3 days Referrals / Follow Up: Av Barros MD [Primary Care Provider] - Denis Bee MD [Med Staff - Active Staff] - See Referral Note (Follow-up as scheduled) Lissette Vasquez MD [Med Staff - Active Staff] - See Referral Note (As scheduled) Randy Montes DO [Med Staff - Active Staff] - See Referral Note (As scheduled) Disposition Disposition (needs filled in before D/C Order can be placed): Home, Self Care Charges/Coding Visit Charges Inpatient E&M: 53647 Disch Hosp >30min
[2023-01-22 12:37] VITALS: O2SAT 78; O2SAT 90
--- NOTE | 2023-01-22 12:45 | CASEMGMT ---
Addendum entered by Starla Floyd 01/22/23 13:28: Per nurse, pt is missing rubber seal on oxygen is missing. Spoke with [facility] who [place] allowing [place] to switch this out with one at hospital. [employer] did so at this time. Addendum entered by Starla Floyd 01/22/23 13:08: Referral sent to [facility] via [facility] for increase in oxygen rx. Original Note: RN CM into pt room, pt qualifies for 4L oxygen at rest and unable to ambulate for testing d/t pain. Pt and aware of new oxygen rx. Pt brought in portable tanks and states they are leaking. Spoke to pt nurse regarding this, if unable to get fixed she will notify respiratory. Pt and deny further homegoing needs at this time.
--- NOTE | 2023-01-22 14:54 | CHAPLAIN ---
Type of Pastoral Visit _x__ Initial Visit ___ Follow-up Visit ___ On-call Visit ___ General Patient Visit ___ Spiritual Assessment ___ Family Conference ___ Bereavement ___ Rapid Response ___ Code Blue ___ Other (describe below) Pastoral Care Referral From _x__ Patient ___ Family ___ Nurse ___ Physician ___ Candy Attendant ___ Vegetable Tier ___ Other (describe below) Sacrament/Intervention _x__ Active listening ___ Anointing ___ Adventist ___ Bereavement ___ Communion _x__ Tarsha exploration ___ _x__ Life review _x__ Prayer ___ Reconciliation ___ Sacrament of Sick _x__ Supportive presence ___ Wedding ___ Other (describe below) Pastoral Comments patient has weak voice and explains this is part of his stage four lung cancer; pt spouse is out of the room initially but returns later; pt identifies himself as a Gnosticist believer who trusts God in this situation; pt has been very active in his mandaen; pt given time to slowly talk and reassured that he does not need to exert effort; pt welcomes a prayer and specifies that he is asking God for a supernatural healing so that God gets the credit for his life and health; time of prayer given with patient and emotional support provided through listening to his life passions; spouse comes into room and offered support; spouse admits that these are difficult days; both express love and care to each other in the presence of this oracle distribution consultant; pt goal is to go home today; offer of future support given as needed
[2023-01-22 15:00] VITALS: BP 122/82; PULSE 125; RESP 24; TEMP 37.6; O2SAT 95
[2023-01-23 08:27] LABS: Pathologist Review Reviewed
== END 2023-01-22 15:57 | disposition home or self-care (01) | DRG 193 ==
LOC: ED 22:17 → MS3 01-21 00:59
PROVIDERS: Admitting Provider Family Medicine; Emergency Provider Emergency Medicine; PCP Family Medicine; Visit Provider Internal Medicine
DX: J18.9 Pneumonia, unspecified organism (principal); J98.59 Other diseases of mediastinum, not elsewhere classified; E43 Unspecified severe protein-calorie malnutrition; C79.51 Secondary malignant neoplasm of bone; C79.71 Secondary malignant neoplasm of right adrenal gland; C79.72 Secondary malignant neoplasm of left adrenal gland; C79.31 Secondary malignant neoplasm of brain; C34.92 Malignant neoplasm of unspecified part of left bronchus or lung; C34.91 Malignant neoplasm of unspecified part of right bronchus or lung; J90 Pleural effusion, not elsewhere classified; E87.1 Hypo-osmolality and hyponatremia; J98.11 Atelectasis; B95.62 Methicillin resistant Staphylococcus aureus infection as the cause of diseases classified elsewhere; E27.9 Disorder of adrenal gland, unspecified; D64.9 Anemia, unspecified; E78.00 Pure hypercholesterolemia, unspecified; J98.09 Other diseases of bronchus, not elsewhere classified; G89.29 Other chronic pain; Z79.891 Long term (current) use of opiate analgesic; Z92.21 Personal history of antineoplastic chemotherapy; Z87.891 Personal history of nicotine dependence; Z79.01 Long term (current) use of anticoagulants; Z51.0 Encounter for antineoplastic radiation therapy; R59.1 Generalized enlarged lymph nodes; Z92.3 Personal history of irradiation; R63.4 Abnormal weight loss; Z68.25 Body mass index [BMI] 25.0-25.9, adult
CPT/HCPCS: 36415; 36591; 71046; 71260; 77014; 77290; 77295; 80048; 80053; 80202; 81001; 83605; 85025; 87040; 87086; 93005; 94640; 97802; 99285; J7030; J7050; Q9967; A4216

== ENCOUNTER → 2023-01-24 | Outpatient (CLI) | payer OTHER, SELFPAY ==
--- NOTE | 2023-01-24 08:55 | MRI_ITS ---
STUDY: MRI BRAIN WITH AND WITHOUT CONTRAST REASON FOR EXAM: Male, 52 years old. f/u small brain met from lung cancer, R occ -- please compare to prior TECHNIQUE: Standardized multiplanar fat and water weighted pulse sequences were obtained. IV Yes Clariscan was administered for the contrast portion of the examination. COMPARISON: December 18, 2022 FINDINGS: Normal size of the ventricles and extra-axial spaces for the patient''s age. Normal white matter tracts of the supratentorial brain. There is no evidence for recent intracranial ischemia or other cause of cytotoxic edema on diffusion weighted imaging (DWI). Normal T2* images of the brain without demonstrated susceptibility artifact. There is no demonstrated hemosiderin stain. Normal bilateral basal ganglia. Normal thalami. There is no extra-axial fluid accumulation. Normal flow voids within the major intracranial circulation suggesting patency by spin echo criteria. Normal venous enhancement. There is no enhancing intra-axial or extra-axial abnormality. Normal sella turcica, pituitary gland, infundibular stalk, optic chiasm and hypothalamus. Normal tectal plate and pineal gland. Normal midbrain, delaney and medulla. Normal cerebellum. Normal basal cisterns. Normal bilateral temporal bones. Normal bilateral internal auditory canals. No demonstrated orbital abnormality, within the constraints of a routine brain study. Normal visualized paranasal sinuses. Normal calvarium and skull base. Normal visualized soft tissue structures. Normal visualized upper cervical spine. MRI/Brain W/WO Contrast IMPRESSION: Normal unenhanced and enhanced MRI of the brain. Resolution of previously seen enhancing focus of the right occipital lobe. Electronically Signed: Ajay Mathew MD at 20:24 EDT ,
== END | disposition home or self-care (01) ==
LOC: MRI 08:42
PROVIDERS: PCP Family Medicine; Referring Provider Student in an Organized Health Care Education/Training Program; Visit Provider Student in an Organized Health Care Education/Training Program
DX: C79.31 Secondary malignant neoplasm of brain (principal)
CPT/HCPCS: 70553; A9575; A4216

== ENCOUNTER 2023-01-29 12:13 | Inpatient (IN) | payer OTHER, SELFPAY ==
[2023-01-29] VITALS (14 sets, daily range): BP systolic 114–140; BP diastolic 83–91; PULSE 115–135; RESP 14–36; TEMP 36.1–37.2; O2SAT 93–99; BMI 26.2; BMI 26.4
[2023-01-29 14:05] LABS: Hematocrit 28.3 % (40-54); Hemoglobin 8.9 g/dL (13.0-16.5); Mean Corp Hgb Conc 31.4 g/dL (32-36); Mean Corpuscular Hgb 28.9 pg (27.0-32.0); Mean Corpuscular Volume 91.9 fL (80-94); Mean Platelet Vol. 8.8 fl (6.2-12.0); POSITIVE COUNT YES; POSITIVE DIFFERENTIAL YES; POSITIVE MORPHOLOGY YES; Platelet Count 386 K/mm3 (150-450); RBC Distribution Width CV 16.6 % (11.6-14.6); RBC Distribution Width SD 52.9 fl (35.1-43.9); Red Blood Count 3.08 M/mm3 (4.6-6.2); White Blood Count 22.6 K/mm3 (4.4-11.0)
[2023-01-29 14:09] LABS: Differential Indicated MANUAL DIFF
--- NOTE | 2023-01-29 14:14 | RAD_ITS ---
STUDY: X-RAY CHEST REASON FOR EXAM: Male, 52 years old. Dyspnea TECHNIQUE: Single AP portable view of the chest. COMPARISON: 01/20/2023. FINDINGS: Stable appearance of EKG leads and a right subclavian port. Previously noted opacification in the left hemithorax as worsened since the previous study and almost no normal left lung is identified. There is persistent [id number] mediastinal shift due to the likely compressive atelectasis in the right lung from a large left pleural effusion. Right lung shows opacification in the right cardiophrenic angle likely atelectasis or infiltrate. Heart and mediastinum cannot be accurately evaluated. Normal visualized thoracic spine. Normal visualized ribs, clavicles, and shoulders. There is no demonstrated abnormality of the visualized soft tissue structures of the upper abdomen. RAD/Chest PA and Lateral IMPRESSION: Previously noted opacification in the left hemithorax is worsened since the previous study almost no normal left lung is visualized. Stable [id number] mediastinal shift Likely compressive atelectasis in the right cardiophrenic angle Electronically Signed: Miguelito Mullins MD at 14:51 EDT ,
[2023-01-29] MEDS: 0.9% Normal Saline 1,000 ML 1000 ML IV (14:18)
[2023-01-29 14:22] LABS: ALB/GLOB Ratio 0.3 RATIO (0.9-2.4); AST(SGOT) 115 U/L (15-37); Alanine Aminotransfer ALT/SGPT 24 U/L (16-61); Albumin, Serum 1.8 g/dL (3.2-5.0); Alkaline Phosphatase 159 U/L (45-117); Anion Gap 5 (5-15); BUN 22 mg/dL (7-18); BUN/Creat Ratio 26.8 RATIO (10-20); Chloride 93 mmol/L (98-107); Creatinine, Serum 0.82 mg/dL (0.70-1.30); EST Glomerular Filtration Rate 105 mL/min (>60); Est Glom Filt Rate - Afr Amer 127 mL/min (>60); Estimated Creatinine Clearance 113.51 ml/min; Globulin 5.4 g/dL (2.2-4.2); Glucose 97 mg/dL (74-106); Lipase 12 U/L (13-75); Potassium 4.8 mmol/L (3.5-5.1); Protein, Total 7.2 g/dL (6.4-8.2); Sodium Level 128 mmol/L (136-145); Troponin-I HS 11 pg/mL (3.0-78.0)
[2023-01-29 14:50] LABS: Eosinophil 1 % (0-5); Lymphocyte 5 % (19-41); Metamyelocyte 5 % (0-1); Monocyte 7 % (0-10); Myelocyte 3 % (0-0); Neutrophil-Band 4 % (0-5); Neutrophil-Segmented 75 % (47-70); Nucleated Red Bld Cells,Manual 1 % (0-5); Total Cells Counted 100 (MANUAL DIFF)
[2023-01-29 14:51] LABS: Neutrophil # 19.68 X10^3/uL (2.7-7.7)
[2023-01-29 14:52] LABS: Absolute Lymphocyte Count 1.13 X10^3/uL (0.83-4.51); Absolute Neutrophil Count 19.7 X10^3/uL (2.0-7.7); Lymphocyte # 1.13 X10^3/ul (0.83-4.51); Platelet Estimate ADEQUATE (ADEQ)
[2023-01-29 14:53] LABS: Polychromasia RARE
--- NOTE | 2023-01-29 15:58 | EDS_ITS ---
HPI History of Present Illness Chief Complaint: Nausea/Vomiting Informant: patient and family Onset/Context/Timing Onset: Days (3) Context: Gradual Onset Timing: Continuous Quality: Sharp Location: Upper abdomen Worsened by: Coughing, hiccups Relieved by: Nothing Associated Symptoms Associated Symptoms: Nausea, vomiting Narrative Narrative: Patient presents with abdominal pain that has been getting worse over the past 3 days. Patient states it is mainly over the upper abdomen. Patient states it is sharp. Patient states it is worse with coughing and with hiccups. Patient admits to some nausea and vomiting. Patient denies any hematemesis or coffee- ground emesis. Patient denies any diarrhea, melena, or hematochezia. Patient denies any urinary complaints. Patient was recently admitted for pneumonia and is currently on Levaquin. Patient states he has had some mild swelling of his ankles recently. Family is concerned that he may be dehydrated. [facility] Medical History Adenocarcinoma of lung, stage 4 Alcohol use Apnea, sleep Arthritis Asthma Back pain Benign skin mole Cancer of left lung Chondrosternal sprain Chronic coughing CINV (chemotherapy-induced nausea and vomiting) Diastolic hypertension Encounter for education Fatty tumor Former smoker Herpes zoster Hoarseness Hypercholesteremia Hyponatremia Keratosis pilaris Lipoma Low serum HDL Maculopapular rash 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 Rapid weight loss Regional lymph node metastasis present Shortness of breath on exertion Stomatitis Home Medications folic acid 1 mg tablet 1 mg PO DAILY supplement 01/20/23 [History Last Taken Unknown] ondansetron 8 mg disintegrating tablet 8 mg PO Q8H nausea 01/20/23 [History Last Taken Unknown] acetaminophen 325 mg tablet 650 mg (2 x 325 mg) PO Q6H PRN PRN Pain 1-10 Or Fever #1 TAB 01/22/23 [Rx Last Taken Unknown] fentanyl 25 mcg/hr transdermal patch 25 mcg transdermal Q3D 30 days #10 ea 01/22/23 [Rx Last Taken Unknown] hydromorphone 2 mg tablet (Dilaudid) 2 mg PO Q4H 7 days #42 tabs 01/22/23 [Rx Last Taken Unknown] lactulose 20 gram/30 mL oral solution 20 g (30 mL) PO BID #1,200 mL 01/22/23 [Rx Last Taken Unknown] levofloxacin 750 mg tablet 750 mg PO DAILY #10 tabs 01/22/23 [Rx Last Taken Unknown] mirtazapine 15 mg tablet 30 mg (2 x 15 mg) PO QHS #60 tabs 01/22/23 [Rx Last Taken Unknown] pantoprazole 40 mg tablet,delayed release (Protonix) 40 mg PO DAILY #30 tabs 01/22/23 [Rx Last Taken Unknown] Allergy/AdvReac Type Severity Reaction Status Date / Time No Known Allergies Allergy Verified 01/29/23 11:14 Family History Aunt Cancer paternal - unknown type Sister Lymphoma T-cell Non Hodgkin's Social History household members: spouse Smoking Status: Former smoker Tobacco: How many years used: 8 how long ago did patient quit smoking: quit 30 years ago ROS ROS ED Constitutional Constitutional ED: Reports chills, fever(s), subjective and sweats Eyes Eyes: Denies blurry vision or change in vision ENT ENT ED: Denies rhinorrhea or sore throat Cardiovascular Cardiovascular: Denies chest pain or palpitations Respiratory/Chest Respiratory/Chest: Denies cough or dyspnea Gastrointestinal Gastrointestinal: Reports abdominal pain, constipation, nausea and vomiting Genitourinary Genitourinary ED: Denies dysuria or hematuria Musculoskeletal Musculoskeletal: Reports back pain; Denies neck pain Integumentary Denies abscess or rash Neurologic Neurologic: Denies headache(s) or weakness Allergic/Immunologic Allergic/Immunologic ED: Denies mouth swelling or urticaria EXAM Physical Exam Const Vital Signs: 01/29/23 12:14 01/29/23 13:19 Temperature 96.9 F L Temperature Source Temporal Pulse Rate 135 H Respiratory Rate 20 H Respiratory Effort Normal Non-Labored Respiratory Pattern Normal Blood Pressure 114/91 H Blood Pressure Mean 98 Pulse Ox 93 Oxygen Delivery Method Nasal Cannula Oxygen Flow Rate (L/min) 3 Positive well nourished and well developed General Appearance ED: well developed and pallor HEENT Reports moist mucous membranes Neck supple and no JVD Resp normal respiratory effort Auscultation: diminished lung sounds left throughout Cardio regular rate, regular rhythm and no murmurs GI non-distended Palpation: soft and tender epigastric, LLQ, RLQ, LUQ, RUQ, periumbilical and suprapubic; Negative for guarding or rebound tenderness present Extremity normal to inspection General Extremety ED: Yes edema; Negative for tenderness General Extremity: edema bilateral lower extremity Details: mild Neuro oriented x3, CN's II-XII intact bilaterally and no sensory deficits noted Sensorium / Orientation: alert Motor Exam: strength 5/5 throughout Psych mental status grossly normal Skin no rashes or lesions noted General Skin Exam: pallor MDM MDM MDM Narrative Medical decision making narrative: Differential diagnosis includes anemia, infection, gastroenteritis, dehydration, electrolyte abnormality, and acute kidney injury. CBC will be obtained to assess for leukocytosis and anemia. Comprehensive metabolic profile will be obtained to assess for electrolyte abnormality, renal function, and hepatic function. Lipase will be obtained to assess for pancreatitis. High-sensitivity troponin will be obtained to assess for cardiac ischemia. Chest x-ray will be obtained to assess for pneumonia. History & Record Review Additional record(s) reviewed:: Prior labs Lab Data Attestation: I reviewed the patient's lab results. Lab results narrative: CBC was reviewed. There is a leukocytosis of 22.6. Hemoglobin was 8.9 and hematocrit was 28.3. These are results are consistent with prior results. Comprehensive metabolic profile was reviewed. Sodium was slightly low at 128 and chloride was 93. BUN was slightly elevated at 22. Creatinine was normal at 0.82. Alkaline phosphatase was slightly elevated at 159. AST was slightly elevated at 115. ALT was normal at 24. Calcium was elevated at 12.0. Lipase was reviewed and was low at 12. Labs: Laboratory Results - last 24 hr 01/29/23 13:52 WBC 22.6 H RBC 3.08 L Hgb 8.9 L Hct 28.3 L MCV 91.9 MCH 28.9 MCHC 31.4 L RDW Std Deviation 52.9 H RDW Coeff of Angelica 16.6 H Plt Count 386 MPV 8.8 Neut % (Auto) Not Reportable Absolute Neuts (auto) 19.7 H Absolute Lymphs (auto) 1.13 Total Counted 100 Neutrophils % (Manual) 75 H Band Neutrophils % 4 Lymphocytes % (Manual) 5 L Monocytes % (Manual) 7 Eosinophils % (Manual) 1 Metamyelocytes % 5 H Myelocytes % 3 H Nucleated RBCs/100 WBC 1 Diff Path Review May foll Platelet Estimate ADEQUATE Polychromasia RARE Sodium 128 L Potassium 4.8 Chloride 93 L Carbon Dioxide 30.0 Anion Gap 5 BUN 22 H Creatinine 0.82 Estim Creat Clear Calc 113.51 Est GFR (MDRD) Af Amer 127 Est GFR (MDRD) Non-Af 105 BUN/Creatinine Ratio 26.8 H Glucose 97 Calcium 12.0 H Total Bilirubin 0.90 AST 115 H ALT 24 Alkaline Phosphatase 159 H Troponin I High Sens 11 Total Protein 7.2 Albumin 1.8 L Globulin 5.4 H Albumin/Globulin Ratio 0.3 L Lipase 12 L Radiography Chest X-Ray - ED: 2 View, Read by ED Physician, Read by Radiologist and Left Effusion Diagnostic Testing: Clinical Impression(s) from Imaging Studies Chest X-Ray 01/29/23 14:14 IMPRESSION: Previously noted opacification in the left hemithorax is worsened since the previous study almost no normal left lung is visualized. Stable [id number] mediastinal shift Likely compressive atelectasis in the right cardiophrenic angle Electronically Signed: Miguelito Mullins MD at 14:51 EDT , PA and lateral chest x-ray was obtained. There are 2 views. On my independent interpretation, there is complete white out of the left chest. This has worsened since previous x-ray. There is mild left to right mediastinal shift. This is stable compared to previous x-ray. Radiologist also interpreted the x- ray and agrees. Treatment and Re-Evaluation :: Patient was given IV fluids here. Patient was advised of his findings. Patient was advised of the need for hospitalization for further evaluation. Patient and family understand and are agreeable with the plan. All questions were answered. Case was discussed with the hospitalist. Discharge Plan Triage Chief Complaint: Nausea/Vomiting ED Provider: Av Kline Dx/Rx/DC Orders Prescriptions: No Action ondansetron 8 mg tablet,disintegrating 8 mg PO Q8H Patient Comments: DISSOLVE 1 TABLET IN MOUTH EVERY 8 HOURS NEEDED FOR NAUSEA AND VOMITING folic acid 1 mg tablet 1 mg PO DAILY Patient Comments: TAKE 1 TABLET BY MOUTH ONCE DAILY acetaminophen 325 mg Tablet 650 mg PO Q6H PRN PRN (Reason: Pain 1-10 Or Fever) Qty: 1 0RF mirtazapine 15 mg Tablet 30 mg PO QHS Qty: 60 0RF fentanyl 25 mcg/hr Patch 72 Hour 25 mcg transdermal Q3D 30 Days Qty: 10 0RF levofloxacin 750 mg tablet 750 mg PO DAILY Qty: 10 0RF Rx Instructions: Start on 01/22/2023 hydromorphone [Dilaudid] 2 mg tablet 2 mg PO Q4H 7 Days Qty: 42 0RF Rx Instructions: 2-4 mg every four hours as needed for breakthrough pain-May take with 1 Aleve, with maximal amount of Aleve per day at 4 pantoprazole [Protonix] 40 mg tablet,delayed release (DR/EC) 40 mg PO DAILY Qty: 30 0RF lactulose 20 gram/30 mL solution 20 g PO BID Qty: 1200 0RF Rx Instructions: take one to two times daily for treatment of constipation Primary Care Provider: Av Barros Referrals: Av Barros MD [Primary Care Provider] -
--- NOTE | 2023-01-29 16:30 | HP.PCM.HOS_ITS ---
HPI - General General Date of Admission: 01/29/23 Date of Service: 01/29/23 Chief Complaint: Abdominal pain/nausea/vomiting HPI Narrative BASILIO GOSS, is a 52 M who presented to the emergency department at [facility] on 01/29/2023 due to intractable nausea and vomiting and upper abdominal pain that has been worsening over the last 2 days. Patient was recently admitted here on 01/20/2023 and discharged on 01/22/2023 and diagnosed with a postobstructive pneumonia. He had a significant leukocytosis which appears to be improving and was discharged home on Levaquin to complete a total of 10 days. He started radiation which is palliative earlier this week and on Friday he started developing nausea and vomiting with upper abdominal pain. He had no hematemesis or coffee-ground emesis. Upper abdominal pain is constant and radiates to the right flank. His reports that his symptoms actually started in the right flank on Friday. It sounds like his nausea and vomiting is more related to coughing and then gagging causing reflex emesis due to a hypervigilant gag reflex however it is somewhat unclear with the abdominal pain currently. Patient has lost a significant amount of weight related to his cancer and is starting to have lower extremity edema that appears to be related to malnutrition. He has been able to get his medications down for the most part. His reports that he probably missed only 1 day of his Levaquin which would have been yesterday due to his symptoms. He is currently undergoing r adiation therapy and was seen earlier today by his radiation oncologist who irradiated him and then sent him to the emergency department due to his ongoing symptoms. Vital signs on presentation show a temperature of 96.9, heart rate 135 that improved to 119 after IV fluids, blood pressure was 114/91, respiratory rate was 20 and oxygen saturation was 93% on 3 L nasal cannula which is his baseline supplemental oxygen. CBC shows a leukocytosis that is improving with a current white count of 22.6, anemia with a hemoglobin of 8.9 which is stable. Chemistry panel reveals a sodium of 128 which is stable, BUN is 22 and serum creatinine is 0.82. His BUN seems to be uptrending. His calcium was 12.0 and during his last admission was 10.6. I suspect this is elevated more due to dehydration anything else. His AST is mildly elevated 115 and his alk phos is 159. His albumin is 1.8. A lipase was obtained due to his abdominal pain and was 13. Chest x-ray shows previously noted opacification of the left hemithorax and a stable left to right mediastinal shift with likely compressive atelectasis at the right costophrenic angle. [facility] Medical History Adenocarcinoma of lung, stage 4 Alcohol use Apnea, sleep Arthritis Asthma Back pain Benign skin mole Cancer of left lung Chondrosternal sprain Chronic coughing CINV (chemotherapy-induced nausea and vomiting) Diastolic hypertension Encounter for education Fatty tumor Former smoker Herpes zoster Hoarseness Hypercholesteremia Hyponatremia Keratosis pilaris Lipoma Low serum HDL Maculopapular rash 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 Rapid weight loss Regional lymph node metastasis present Shortness of breath on exertion Stomatitis Home Medications folic acid 1 mg tablet 1 mg PO DAILY supplement 01/20/23 [History Last Taken 01/28/23] ondansetron 8 mg disintegrating tablet 8 mg PO Q8H nausea 01/20/23 [History Last Taken 01/22/23] fentanyl 25 mcg/hr transdermal patch 25 mcg transdermal Q3D 30 days #10 ea 01/22/23 [Rx Last Taken 01/28/23] lactulose 20 gram/30 mL oral solution 20 g (30 mL) PO BID #1,200 mL 01/22/23 [Rx Last Taken 01/29/23] levofloxacin 750 mg tablet 750 mg PO DAILY #10 tabs 01/22/23 [Rx Last Taken 01/29/23] pantoprazole 40 mg tablet,delayed release (Protonix) 40 mg PO DAILY #30 tabs 01/22/23 [Rx Last Taken 01/28/23] hydromorphone 2 mg tablet (Dilaudid) 2 - 4 mg PO Q4H PRN PAIN 01/29/23 [History Last Taken 01/29/23 07:30] naproxen sodium 220 mg tablet (Aleve) 220 mg PO BID PRN pain 01/29/23 [History Last Taken 01/28/23] Allergy/AdvReac Type Severity Reaction Status Date / Time No Known Allergies Allergy Verified 01/29/23 11:14 Family History Aunt Cancer paternal - unknown type Sister Lymphoma T-cell Non Hodgkin's no surgical history Social History household members: spouse Smoking Status: Former smoker Tobacco: How many years used: 8 how long ago did patient quit smoking: quit 30 years ago ROS Constitutional Constitutional: Reports anorexia, fatigue, malaise and weakness; Denies change in weight, chills, fever(s), night sweats or other Eyes Eyes: Denies blurry vision, change in eye color, change in vision, discharge from eye(s), double vision, erythema, eye pain, loss of vision or other ENT HEENT: Denies abnormal hearing, dysphagia, ear pain, epistaxis, headache(s), hearing loss, nasal congestion, nasal discharge, post nasal drip, sinus pressure, sore throat or other Cardiovascular Cardiovascular: Denies chest pain, claudication, dyspnea on exertion, edema, lightheadedness, orthopnea, palpitations, paroxysmal nocturnal dyspnea, rapid heart rate, syncope or other Respiratory/Chest Respiratory/Chest: Reports cough, dyspnea, shortness of breath at rest and shortness of breath with exertion; Denies excessive phlegm production, hemoptysis, productive cough, wheezing or other Gastrointestinal Gastrointestinal: Reports abdominal pain, constipation, nausea and vomiting; Denies coffee ground emesis, diarrhea, dyspepsia, hematemesis, hematochezia, loose stools, melena or other Genitourinary Genitourinary: Denies burning urination, difficulty urinating, dysuria, hematuria, nocturia, urinary frequency, urinary hesitancy, urinary incontinence, urinary urgency or other Musculoskeletal Musculoskeletal: Reports back pain; Denies arthralgias, joint pain, joint stiffness, joint swelling, myalgias, neck pain or other Neurologic Neurologic: Denies abnormal gait, abnormal speech, confusion, disequilibrium, dizziness, focal weakness, headache(s), numbness, paresthesias, seizure-like activity, seizures, syncope, tingling, tremor(s) or other Psychiatric Psychiatric: Denies anxiety, depression, homicidal ideation, suicidal ideation or other Endocrine Endocrinology: Denies change in body appearance, cold intolerance, excessive sweating, heat intolerance, polydipsia, polyuria or other Hematologic/Lymphatic Hematologic/Lymphatic: Denies anemia, easy bleeding, easy bruising, lymphadenopathy or other Allergic/Immunologic Allergic/Immunologic: Denies rhinitis, hives, eczemia, asthma or other Vital Signs Vital Signs Vital Signs: 01/29/23 12:14 01/29/23 13:19 01/29/23 13:23 Temperature 96.9 F L Temperature Source Temporal Pulse Rate 135 H Respiratory Rate 20 H 14 Respiratory Effort Normal Non-Labored Respiratory Pattern Normal Blood Pressure 114/91 H Blood Pressure Mean 98 Pulse Ox 93 Oxygen Delivery Method Nasal Cannula Oxygen Flow Rate (L/min) 3 01/29/23 14:23 01/29/23 15:23 Temperature Temperature Source Pulse Rate 119 H Respiratory Rate 20 H 26 H Respiratory Effort Respiratory Pattern Blood Pressure 122/90 H Blood Pressure Mean 100 Pulse Ox 95 Oxygen Delivery Method Nasal Cannula Oxygen Flow Rate (L/min) Weight Weight: 85.275 kg Body Mass Index (BMI) 26.2 Physical Exam Const alert, oriented x3 and average body habitus; Negative for no apparent distress, healthy appearing or well nourished Constitutional Narrative: Middle-aged, white male, lying in bed, appears very uncomfortable, sister and at bedside, nontoxic but ill-appearing, patient appears to be thin and malnourished General Appearance: cooperative HEENT normocephalic, head/scalp atraumatic and hearing grossly normal bilaterally HEENT Narrative: Mucous membranes are dry, Mallampati is 2, no thrush Eyes PERRL and EOMs intact bilaterally; Negative for conjunctivae normal Eyes Narrative: Conjunctiva are mildly pale, no scleral icterus Neck no lymphadenopathy and supple Neck Narrative: Trachea midline, no thyroid enlargement Resp No normal respiratory effort, no retractions and no use of accessory muscles Resp Narrative: Mild tachypnea, absence of breath sounds at almost the entire left lung sans the left apex, normal breath sounds on the right Auscultation: Negative for rales, rhonchi or wheezes Cardio regular rhythm, S1 normal heart sound, S2 normal heart sound, no murmurs, no rub, no gallops and no clicks Cardio Narrative: Sinus tachycardia GI normal to inspection, nondistended, normoactive bowel sounds and soft to palpation GI Narrative: Diffuse tenderness most significant at bilateral upper quadrants and epigastrium Palpation: guarding Extremity Extremity Narrative: Trace bilateral lower extremity pedal edema, no clubbing or cyanosis Skin Skin Narrative: Med port right chest-clean dry and Neuro oriented x3, CN's II-XII intact bilaterally, moves all extremities and no focal motor deficits Sensorium / Orientation: awake, alert, oriented to person, oriented to place and oriented to time Speech: speech normal Psych Psych Narrative: Affect is flat, patient uncomfortable and mood is appropriate for current situa tion Results Lab / Micro Data 01/29/23 13:52 01/29/23 13:52 Labs: Laboratory Results - last 24 hr 01/29/23 13:52: WBC 22.6 H, RBC 3.08 L, Hgb 8.9 L, Hct 28.3 L, MCV 91.9, MCH 28.9, MCHC 31.4 L, RDW Std Deviation 52.9 H, RDW Coeff of Angelica 16.6 H, Plt Count 386, MPV 8.8, Neut % (Auto) Not Reportable, Absolute Neuts (auto) 19.7 H, Absolute Lymphs (auto) 1.13, Total Counted 100, Neutrophils % (Manual) 75 H, Band Neutrophils % 4, Lymphocytes % (Manual) 5 L, Monocytes % (Manual) 7, Eosinophils % (Manual) 1, Metamyelocytes % 5 H, Myelocytes % 3 H, Nucleated RBCs/100 WBC 1, Diff Path Review November, Platelet Estimate ADEQUATE, Polychromasia RARE, Sodium 128 L, Potassium 4.8, Chloride 93 L, Carbon Dioxide 30.0, Anion Gap 5, BUN 22 H, Creatinine 0.82, Estim Creat Clear Calc 113.51, Est GFR (MDRD) Af Amer 127, Est GFR (MDRD) Non-Af 105, BUN/Creatinine Ratio 26.8 H, Glucose 97, Calcium 12.0 H, Total Bilirubin 0.90, AST 115 H, ALT 24, Alkaline Phosphatase 159 H, Troponin I High Sens 11, Total Protein 7.2, Albumin 1.8 L, Globulin 5.4 H, Albumin/Globulin Ratio 0.3 L, Lipase 12 L Radiology Impression Chest X-Ray 01/29/23 14:14 IMPRESSION: Previously noted opacification in the left hemithorax is worsened since the previous study almost no normal left lung is visualized. Stable [id number] mediastinal shift Likely compressive atelectasis in the right cardiophrenic angle Electronically Signed: Miguelito Mullins MD at 14:51 EDT , Assessment & Plan Assessment/Plan (1) Postobstructive pneumonia: (2) Dehydration: (3) Nausea and vomiting: (4) Abdominal pain: (5) Severe malnutrition: (6) Hypercalcemia: (7) Hypoxia: (8) Leukocytosis: (9) Constipation: PLAN: Plan Nausea, vomiting, abdominal pain -Check CT of the abdomen pelvis noncontrasted -IV Haldol as needed -Scopolamine patch -Etiology is currently unclear -Lipase is normal -LFTs are unremarkable -As needed hydromorphone for breakthrough and continue home fentanyl patch and D ilaudid -Full liquid diet and advance as tolerated Hypercalcemia -Suspect related to dehydration -Alk phos is also slightly elevated -IV fluids -Repeat in a.m. 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 with complete obstruction -Chest x-ray remained stable with left lung denny out -Continue supplemental oxygen with 3 L nasal cannula and wean as able -As needed albuterol Stage IV small cell lung cancer -Patient currently undergoing palliative radiation -Consult radiation oncology for ongoing radiation my patient was hospitalized -Consult palliative care -Pain medication as above Tachycardia -Improving with IV fluids however has been persistently tachycardic with heart rates in the 1 teens -Start metoprolol 2.5 mg IVP every 6 hours and monitor response Severe malnutrition -Consult dietitian -Start supplements with high-protein Ensure Chronic normocytic anemia -Appears to be stable -Monitor with repeat CBC in a.m. Hyponatremia -Is chronic and likely related to his cancer -Relatively stable -IV fluids and repeat in a.m. GERD -Continue Protonix with transition to IV daily DVT prophylaxis -Patient is high risk with cancer diagnosis -Lovenox 40 mg subcu daily CODE STATUS -Full code as discussion on admission Charges/Coding Visit Charges Inpatient E&M: 51097 Init Hosp L3
--- NOTE | 2023-01-29 16:34 | CT_ITS ---
INDICATION: abdominal pain EXAMINATION: CT ABDOMEN AND PELVIS WITHOUT CONTRAST - CT Abdomen And Pelvis W/O Contrast Injection TECHNIQUE: Helically acquired images were obtained of the abdomen and pelvis without oral or IV contrast. A radiation dose optimization technique was used for this scan. IV Contrast dosage and agent: None. Oral contrast: Oral contrast is present within the large bowel RADIATION DOSAGE (If Supplied By Facility): CTDIvol = ( 8.63 ) mGy, DLP = ( 482.85 ) mGycm COMPARISON: Correlation is made to chest CT examination of 01/21/2023, as well as CT PET examination of 12/03/2022. FINDINGS: LOWER CHEST: 1. Redemonstration of significant LEFT lower lobe airspace consolidation and a large LEFT effusion. Cardiac contour is unchanged, there is pericardial effusion. 2. There are areas of airspace consolidation at RIGHT lung base , small RIGHT effusion present. 3. Several small nodules also noted at the RIGHT lung base including a 6 mm nodule in the RIGHT middle lobe (series 2: Image 1. 4. Coronary vascular calcifications are present. LIVER: The liver has normal configuration and density given the limitation of noncontrast exam. No focal mass. GALLBLADDER AND BILIARY TREE: Gallbladder is mildly distended, no radiodense calcifications present. No gallbladder distension or wall edema. No intra- or extrahepatic biliary ductal dilation. PANCREAS: No focal cystic or solid mass. SPLEEN: Normal size without focal cystic or solid mass. ADRENAL GLANDS: Marked enlargement of the adrenal glands I, Limited estimation of size due to lack of IV contrast, however RIGHT adrenal gland is suspected at 6.8 x 5.7 cm, LEFT adrenal gland estimated at 4.3 x 3.6 cm. The RIGHT adrenal mass appears to have increased in size in the interval. KIDNEYS AND URETERS: Normal renal size and position. No hydronephrosis. Mild perinephric soft tissue stranding is however present. PERITONEUM: No ascites or free air. No other fluid collection. BOWEL: 1. Large small bowel loops have normal configuration, moderate amount retained stool throughout the colon, diverticulosis is present without evidence diverticulitis. A normal appendix is identified. No evidence small bowel obstruction. 2. Moderate soft tissue stranding is noted within the root of mesentery and extending into the retroperitoneum. Scattered mildly enlarged lymph nodes are present within the mesentery. None reaching size criteria of adenopathy however. LYMPH NODES: There are prominent lymph nodes including aortocaval node measuring approximately 1.9 x 1.7 cm. (Series 2: Image 66). A retrocaval node measures 2.7 x 1.7 cm (series 2: Image 76. VESSELS: Aorta is non-dilated. URINARY BLADDER: Unremarkable. REPRODUCTIVE ORGANS: No pelvic masses. ABDOMINAL WALL: No discrete abdominal or pelvic wall hernia. BONES: 1. There has been development of a superior endplate compression deformity at L3, no evidence of retropulsion or canal stenosis however there is a sclerotic appearance of the L3 vertebral body, this corresponds to area of hypermetabolic activity on PET examination of 12/03/2022 however significantly increased in involvement in the interval. 2. There is a focal sclerotic lesion in the anterior aspect of L1. 3. No other focal bony lesions noted. No other evidence of fractures. CT/Abdomen/Pelvis without Cont IMPRESSION: 1. No bowel obstruction abscess free fluid or free air. Diverticulosis noted without evidence diverticulitis. Moderate amount retained stool and stool within the colon. 2. Normal appendix. 3. Bulky mass involving both adrenal glands, greater on the RIGHT than LEFT, with mild increase in prominence of the RIGHT adrenal in the interval. 4. Significant retroperitoneal adenopathy as detailed above. 5. No evidence of obstructive uropathy. There is mild soft tissue stranding within the retroperitoneum however. 6. Bony metastatic changes are noted, with interval development of pathologic fracture at L3 with only mild loss of vertebral body height, no retropulsion or canal stenosis. 7. Extensive LEFT lower lobe airspace consolidation, LEFT effusion, pericardial effusion and focal area of atelectasis and consolidation at the RIGHT lung base. Small RIGHT effusion noted. 8. Small nodule in the RIGHT middle lobe suspicious of pulmonary metastatic disease. Electronically Signed: Ajay Penaloza MD at 19:13 EDT ,
[2023-01-29 16:46] LABS: Lipase 13 U/L (13-75)
[2023-01-29] MEDS: 0.9% Normal Saline 1,000 ML 999 ML IV (17:05)
[2023-01-29] MEDS: Morphine 4 MG/ML Syringe IV (17:45)
[2023-01-29] MEDS: levoFLOXacin IV 750 MG/150 ML BAG 100 MG IV (18:58)
[2023-01-29] MEDS: Lactated Ringers 1,000 ML 100 ML IV (19:00)
[2023-01-29] MEDS: 0.9% Saline Lock 10 ML Syringe IV ×3 (19:00→23:06)
[2023-01-29] MEDS: Scopolamine 1mg/72hr Patch 1 PATCH TD (19:00)
[2023-01-29] MEDS: Ensure Plus High Protein 120 ML LIQUID PO (19:06)
[2023-01-29] MEDS: Metoprolol Tartrate 5 MG/5 ML Vial 2.5 MG IV ×2 (19:06→23:06)
--- NOTE | 2023-01-29 19:18 | ECHOD_ITS ---
Reason For Study: PERICARDIAL EFFUSION Procedure This was a 2D Doppler, Color Flow transthoracic echocardiogram. The study was technically difficult. Exam performed portable in patient room. Left Ventricle Normal LV size. The estimated ejection fraction is 70 %. No evidence for diastolic dysfunction. No regional wall motion abnormalities noted. Right Ventricle Normal RV size. Normal systolic function. Atria Normal left atrium. Normal right atrium. No doppler evidence for ASD. Mitral Valve There is no mitral valve stenosis. No mitral valve insufficiency. Tricuspid Valve There is no tricuspid stenosis. Unable to estimate RV systolic pressure due to inadequate jet, pulmonary artery pressure probably normal. Aortic Valve Trisinus/trileaflet aortic valve. There is no aortic stenosis. No aortic valve insufficiency. Pulmonic Valve There is no pulmonic valvular stenosis. No pulmonic valve insufficiency. Great Vessels Normal aortic root. Pericardium/Pleural Moderate pericardial effusion. MMode/2D Measurements & Calculations LVIDd: 4.3 cm IVSd: 1.3 cm Ao root diam: 3.8 cm LVIDs: 3.2 cm LVPWd: 1.2 cm FS: 26.4 % LAV(MOD-sp4): 73.5 ml LVAd ap4: 31.2 cm2 LVAd ap2: 20.5 cm2 LVLd ap4: 8.5 cm LVLd ap2: 8.0 cm EDV(MOD-sp4): 94.5 ml EDV(MOD-sp2): 44.2 ml EDV(sp4-el): 97.7 ml EDV(sp2-el): 44.3 ml LVAs ap4: 20.3 cm2 LVAs ap2: 12.9 cm2 LVLs ap4: 7.5 cm LVLs ap2: 6.4 cm ESV(MOD-sp4): 46.2 ml ESV(MOD-sp2): 21.3 ml ESV(sp4-el): 46.6 ml ESV(sp2-el): 22.1 ml EF(MOD-sp4): 51.1 % EF(MOD-sp2): 51.9 % EF(sp4-el): 52.3 % SV(MOD-sp4): 48.3 ml SV(MOD-sp2): 23.0 ml SV(sp4-el): 51.1 ml LA dimension(2D): 3.8 cm LA A4 area: 21.1 cm2 Doppler Measurements & Calculations MV E max christopher: 65.1 cm/sec Lat Peak E' Christopher: 12.2 cm/sec Med Peak E' Christopher: 11.6 cm/sec MV A max christopher: 89.7 cm/sec E/E' lat: 5.3 E/E' med: 5.6 MV E/A: 0.73 Ao V2 max: 99.9 cm/sec LV V1 max: 80.9 cm/sec PA V2 max: 72.8 cm/sec Ao max P.0 mmHg LV V1 max P.6 mmHg Ao V2 mean: 78.1 cm/sec LV V1 mean P.4 mmHg Ao mean P.6 mmHg LV V1 mean: 54.5 cm/sec Ao V2 VTI: 13.1 cm LV V1 VTI: 10.2 cm AV (velocity ratio): 0.78 ECHO/Echo Complete Interpretation Summary The estimated ejection fraction is 70 %. No evidence for diastolic dysfunction. Moderate pericardial effusion. Ordering Physician: Shanelle Barrios Referring Physician: Av Barros Performed By: Desirae Valle, ALVIN, RVT
--- NOTE | 2023-01-29 20:00 | NURSING ---
This RN explained the soap suds enema to patient, and he is refusing at this time. He states he wants to try the miralax and lactulose first. Attempted to tell patient the reason its necessary and he is still unwilling at this time. Will try again.
[2023-01-29 20:23] LABS: International Normalized Ratio 1.3; Prothrombin Time (Protime)PT. 16.1 SECONDS (11.7-14.9)
[2023-01-29] MEDS: Polyethylene Glycol 3350 17 GM PACKET PO (21:03)
[2023-01-29] MEDS: Lactulose 20 GM/30 ML UDC PO (21:03)
--- NOTE | 2023-01-29 21:15 | NURSING ---
Patient is still refusing enema. Family at bedside trying to persuade him into trying at least one. This RN continued to explain the reasoning for it, and how it could help give him relief. Told pt that I will come check back in later.
[2023-01-29] MEDS: Haloperidol Lactate 5 MG/ML Vial 1 MG IV (23:48)
[2023-01-30] VITALS (10 sets, daily range): BP systolic 122–136; BP diastolic 87–97; PULSE 125–138; RESP 18–20; TEMP 36.3–37.2; O2SAT 92–98
[2023-01-30] MEDS: HYDROmorphone 1 MG/ML Syringe IV (00:25)
[2023-01-30] MEDS: 0.9% Saline Lock 10 ML Syringe IV ×4 (00:25→12:39)
[2023-01-30] MEDS: Metoprolol Tartrate 5 MG/5 ML Vial 2.5 MG IV ×2 (05:03→12:20)
[2023-01-30] MEDS: Lactated Ringers 1,000 ML 100 ML IV ×2 (05:05→18:10)
[2023-01-30 06:32] LABS: Hematocrit 26.5 % (40-54); Hemoglobin 8.6 g/dL (13.0-16.5); Mean Corp Hgb Conc 32.5 g/dL (32-36); Mean Corpuscular Hgb 29.8 pg (27.0-32.0); Mean Corpuscular Volume 91.7 fL (80-94); Mean Platelet Vol. 8.6 fl (6.2-12.0); POSITIVE COUNT YES; POSITIVE DIFFERENTIAL YES; POSITIVE MORPHOLOGY YES; Platelet Count 321 K/mm3 (150-450); RBC Distribution Width CV 17.1 % (11.6-14.6); RBC Distribution Width SD 54.9 fl (35.1-43.9); Red Blood Count 2.89 M/mm3 (4.6-6.2); White Blood Count 22.6 K/mm3 (4.4-11.0)
[2023-01-30 06:53] LABS: Differential Indicated MANUAL DIFF
[2023-01-30 06:59] LABS: ALB/GLOB Ratio 0.3 RATIO (0.9-2.4); AST(SGOT) 113 U/L (15-37); Alanine Aminotransfer ALT/SGPT 21 U/L (16-61); Albumin, Serum 1.7 g/dL (3.2-5.0); Alkaline Phosphatase 143 U/L (45-117); Anion Gap 5 (5-15); BUN 18 mg/dL (7-18); BUN/Creat Ratio 18.9 RATIO (10-20); Calcium,Total 11.3 mg/dL (8.5-10.1); Chloride 96 mmol/L (98-107); Creatinine, Serum 0.95 mg/dL (0.70-1.30); EST Glomerular Filtration Rate 89 mL/min (>60); Est Glom Filt Rate - Afr Amer 107 mL/min (>60); Estimated Creatinine Clearance 97.98 ml/min; Globulin 4.9 g/dL (2.2-4.2); Glucose 98 mg/dL (74-106); Magnesium 1.7 mg/dL (1.6-2.6); Phosphorus 2.7 mg/dL (2.5-4.9); Potassium 4.8 mmol/L (3.5-5.1); Protein, Total 6.6 g/dL (6.4-8.2); Sodium Level 130 mmol/L (136-145)
[2023-01-30 07:09] LABS: Neutrophil # 16.96 X10^3/uL (2.7-7.7); Total Cells Counted 100 (MANUAL DIFF)
[2023-01-30 07:10] LABS: Absolute Lymphocyte Count 1.13 X10^3/uL (0.83-4.51); Eosinophil 2 % (0-5); Lymphocyte 5 % (19-41); Lymphocyte # 1.13 X10^3/ul (0.83-4.51); Metamyelocyte 6 % (0-1); Monocyte 11 % (0-10); Myelocyte 1 % (0-0); Neutrophil-Band 14 % (0-5); Neutrophil-Segmented 61 % (47-70); Platelet Estimate ADEQUATE (ADEQ); Red Cell Morphology NORM C+C NORMAL (NORM C&C)
[2023-01-30] MEDS: levoFLOXacin IV 750 MG/150 ML BAG 100 MG IV (09:20)
--- NOTE | 2023-01-30 10:42 | CASEMGMT ---
Addendum entered by Madelyn Vega 01/30/23 12:55: VM received from @ [facility] stating Dr Manriquez plans to come to [facility] to see pt later today. Original Note: CHAPARRO AGUILAR NOTE: Dr Barrios ordered Palliative referral and requesting them see pt today while @ [facility], if possible. Call placed to @ [facility] Palliative and she was notified of Dr Barrios's request. She states will pass info along and will see if someone is available, but she is not sure. Referral sent via e-mail to [facility]. Jono KUNZ RN CM
--- NOTE | 2023-01-30 11:01 | CASEMGMT ---
Addendum entered by Cady Scott 01/30/23 12:55: Discharge Planning Correction to previous note; HH list was created and given to CHAPARRO AGUILAR. Cady Scott, Discharge Planning Asst. Original Note: Discharge Planning SNF list created and given to CHAPARRO AGUILAR. Cady Scott, Discharge Planning Asst.
[2023-01-30] MEDS: Ensure Plus High Protein 120 ML LIQUID PO ×3 (12:20→23:00)
[2023-01-30] MEDS: Enoxaparin 40 MG/0.4 ML Syringe SC (12:21)
[2023-01-30] MEDS: Lactulose 20 GM/30 ML UDC PO ×2 (12:21→22:49)
[2023-01-30] MEDS: Polyethylene Glycol 3350 17 GM PACKET PO ×2 (12:21→22:49)
[2023-01-30] MEDS: Folic Acid 1 MG Tablet PO (12:21)
[2023-01-30] MEDS: Haloperidol Lactate 5 MG/ML Vial 1 MG IV (12:39)
--- NOTE | 2023-01-30 13:14 | PCM.PN.HOSP ---
Reason for Visit Reason for Visit: Abdominal pain/nausea/vomiting Subjective Subjective Marked constipation noted on CT of the abdomen pelvis. Patient has since had good results with enemas and had several bowel movements of large volume since then. Overall is feeling much better and wanted to go home today. I did advise him that we probably should wait another 24 hours to make sure he remains stable and that he can move around without any help. Palliative care will evaluate the patient later today and help with symptom management. We did discuss that they would focus on symptom management with ongoing radiation and chemo if able to withstand an appropriate and if things did not go well that they would be there to help him transition to hospice if he so desired. Patient and family voiced understanding and the plan is for meeting with palliative care later this afternoon. Objective Data Objective Data Vital Signs: Vital Signs Temp Pulse Resp BP Pulse Ox O2 Del Method O2 Flow Rate 98.3 F 125 H 18 135/96 H 96 Nasal Cannula 4 01/30/23 09:00 01/30/23 12:20 01/30/23 09:00 01/30/23 12:20 01/30/23 09:00 01/30/23 09:04 01/30/23 09:04 Oxygen Flow Rate (L/min) 4 Oxygen Delivery Method Nasal Cannula Weight: 85.8 kg Body Mass Index (BMI) 26.4 Intake & Output: Intake and Output for Last 24 Hours 01/28/23 01/29/23 01/30/23 23:59 23:59 23:59 Intake Total 2065.75 / 2265.75 1648.33 / 1648.33 Balance 2065.75 / 2265.75 1648.33 / 1648.33 Lab / Micro Data 01/30/23 06:25 01/30/23 06:25 Labs: Laboratory Results - last 24 hr 01/29/23 13:02: PT 16.1 H, INR 1.3 01/29/23 13:52: WBC 22.6 H, RBC 3.08 L, Hgb 8.9 L, Hct 28.3 L, MCV 91.9, MCH 28.9, MCHC 31.4 L, RDW Std Deviation 52.9 H, RDW Coeff of Angelica 16.6 H, Plt Count 386, MPV 8.8, Neut % (Auto) Not Reportable, Absolute Neuts (auto) 19.7 H, Absolute Lymphs (auto) 1.13, Total Counted 100, Neutrophils % (Manual) 75 H, Band Neutrophils % 4, Lymphocytes % (Manual) 5 L, Monocytes % (Manual) 7, Eosinophils % (Manual) 1, Metamyelocytes % 5 H, Myelocytes % 3 H, Nucleated RBCs/100 WBC 1, Diff Path Review November foll, Platelet Estimate ADEQUATE, Polychromasia RARE, Sodium 128 L, Potassium 4.8, Chloride 93 L, Carbon Dioxide 30.0, Anion Gap 5, BUN 22 H, Creatinine 0.82, Estim Creat Clear Calc 113.51, Est GFR (MDRD) Af Amer 127, Est GFR (MDRD) Non-Af 105, BUN/Creatinine Ratio 26.8 H, Glucose 97, Calcium 12.0 H, Total Bilirubin 0.90, AST 115 H, ALT 24, Alkaline Phosphatase 159 H, Troponin I High Sens 11, Total Protein 7.2, Albumin 1.8 L, Globulin 5.4 H, Albumin/Globulin Ratio 0.3 L, Lipase 12 L 01/29/23 13:52: Lipase 13 01/30/23 06:25: WBC 22.6 H, RBC 2.89 L, Hgb 8.6 L, Hct 26.5 L, MCV 91.7, MCH 29.8, MCHC 32.5, RDW Std Deviation 54.9 H, RDW Coeff of Angelica 17.1 H, Plt Count 321, MPV 8.6, Neut % (Auto) Not Reportable, Absolute Neuts (auto) 17.0 H, Absolute Lymphs (auto) 1.13, Total Counted 100, Neutrophils % (Manual) 61, Band Neutrophils % 14 H, Lymphocytes % (Manual) 5 L, Monocytes % (Manual) 11 H, Eosinophils % (Manual) 2, Metamyelocytes % 6 H, Myelocytes % 1 H, Diff Path Review November foll, Platelet Estimate ADEQUATE, RBC Morphology NORM C+C, Sodium 130 L, Potassium 4.8, Chloride 96 L, Carbon Dioxide 29.0, Anion Gap 5, BUN 18, Creatinine 0.95, Estim Creat Clear Calc 97.98, Est GFR (MDRD) Af Amer 107, Est GFR (MDRD) Non-Af 89, BUN/Creatinine Ratio 18.9, Glucose 98, Calcium 11.3 H, Phosphorus 2.7, Magnesium 1.7, Total Bilirubin 0.80, AST 113 H, ALT 21, Alkaline Phosphatase 143 H, Total Protein 6.6, Albumin 1.7 L, Globulin 4.9 H, Albumin/Globulin Ratio 0.3 L Radiography Diagnostic Testing: Radiology Impression Chest X-Ray 01/29/23 14:14 IMPRESSION: Previously noted opacification in the left hemithorax is worsened since the previous study almost no normal left lung is visualized. Stable [id number] mediastinal shift Likely compressive atelectasis in the right cardiophrenic angle Electronically Signed: Miguelito Mullins MD at 14:51 EDT , Abdomen/Pelvis CT 01/29/23 16:34 IMPRESSION: 1. No bowel obstruction abscess free fluid or free air. Diverticulosis noted without evidence diverticulitis. Moderate amount retained stool and stool within the colon. 2. Normal appendix. 3. Bulky mass involving both adrenal glands, greater on the RIGHT than LEFT, with mild increase in prominence of the RIGHT adrenal in the interval. 4. Significant retroperitoneal adenopathy as detailed above. 5. No evidence of obstructive uropathy. There is mild soft tissue stranding within the retroperitoneum however. 6. Bony metastatic changes are noted, with interval development of pathologic fracture at L3 with only mild loss of vertebral body height, no retropulsion or canal stenosis. 7. Extensive LEFT lower lobe airspace consolidation, LEFT effusion, pericardial effusion and focal area of atelectasis and consolidation at the RIGHT lung base. Small RIGHT effusion noted. 8. Small nodule in the RIGHT middle lobe suspicious of pulmonary metastatic disease. Electronically Signed: Ajay Penaloza MD at 19:13 EDT , Echocardiogram 01/29/23 19:18 Interpretation Summary The estimated ejection fraction is 70 %. No evidence for diastolic dysfunction. Moderate pericardial effusion. Ordering Physician: Shanelle Barrios Referring Physician: Av Barros Performed By: Desirae Valle, ALVIN, RVT Physical Exam Const alert, oriented x3, no apparent distress and average body habitus; Negative for healthy appearing or well nourished Constitutional Narrative: Middle-aged, white male, lying in bed, appears much more comfortable, interacting and joking with me intermittently, voice is affected from laryngeal nerve involvement from his cancer, at bedside General Appearance: cooperative HEENT normocephalic, head/scalp atraumatic and hearing grossly normal bilaterally HEENT Narrative: Mallampati 2, no thrush Resp normal respiratory effort, no retractions and no use of accessory muscles Resp Narrative: No tachypnea absence of breath sounds at almost the entire left lung sans the left apex, normal breath sounds on the right Auscultation: Negative for rales, rhonchi or wheezes Cardio regular rhythm, S1 normal heart sound, S2 normal heart sound, no murmurs, no rub, no gallops and no clicks Cardio Narrative: Sinus tachycardia GI normal to inspection, nondistended, normoactive bowel sounds, soft to palpation and non-tender Extremity Extremity Narrative: Trace bilateral lower extremity pedal edema, no clubbing or cyanosis Neuro oriented x3, moves all extremities and no focal motor deficits Neuro Narrative: Voice is very soft due to 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 and he vocalizes in a whisper Psych Psych Narrative: Affect is less flat today, eye contact is good, patient is appropriate Assessment & Plan Assessment/Plan (1) Postobstructive pneumonia: (2) Dehydration: (3) Nausea and vomiting: (4) Abdominal pain: (5) Severe malnutrition: (6) Hypercalcemia: (7) Hypoxia: (8) Leukocytosis: (9) Constipation: PLAN: Plan Nausea, vomiting, abdominal pain -CT showed significant constipation, bulky mass involving both adrenal glands enlarging in size, significant retroperitoneal adenopathy, bony metastatic changes with the interval development of a pathological fracture at L2, extensive left lower lobe airspace disease left effusion, pericardial effusion, and right small effusion, small nodule in the right middle lobe suspicious of pulmonary metastatic disease -Continue IV Haldol as needed -Continue scopolamine patch -Suspect related to significant constipation -Advance diet today to regular as tolerated Left moderate pleural effusion -Hold on thoracentesis for now per discussion with radiation oncology -They will follow as an outpatient in order next week if need be Pericardial effusion -Echocardiogram performed and showed an EF of 70% with no signs of tamponade and moderate pericardial effusion -Suspect this is malignant -No current intervention required Hypercalcemia -Suspect related to dehydration and bony metastatic disease -Has trended down some Constipation -Resolved -Continue twice daily MiraLAX -Okay to hold on enemas -We will need to go home on aggressive bowel regimen so this does not recur Leukocytosis -Currently being treated for postobstructive pneumonia with Levaquin -Has 2 more days with tomorrow being his last day -We will continue IV Levaquin and dose last dose prior to discharge -Count is stable today Chronic hypoxic respiratory failure 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 Montes he would like us to hold off on thoracentesis as he feels that will reaccumulate. I do agree that it would likely reaccumulate as it is likely a malignant effusion however with his white count being elevated there is some concern that this could potentially be a parapneumonic effusion. After further discussion we decided to hold off on thoracentesis for now and he will follow him up on Friday and pursue any thoracentesis and lab tests needed for further diagnosis depending on response to radiation.--> He is very concerned that the overall prognosis of this is extremely poor and does not anticipate radiation is going to help the overall function/survival of the patient. -Palliative care to see the patient later this afternoon -Pain medication as above Tachycardia -Overall better since IV fluids however still elevated -We will schedule metoprolol -This is likely physiologic Severe malnutrition -Dietitian following-appreciate input -Continue supplements with high-protein Ensure Chronic normocytic anemia -Appears to be stable -Monitor with repeat CBC in a.m. Hyponatremia -Is chronic and likely related to his cancer -Relatively stable -Slight uptrend with IV fluids GERD -Continue IV Protonix for now DVT prophylaxis -Patient is high risk with cancer diagnosis -Lovenox 40 mg subcu daily CODE STATUS -Full code as discussion on admission Charges/Coding Visit Charges Inpatient E&M: 51868 Subs Hosp L2
[2023-01-30] MEDS: Metoprolol Tartrate 25 MG Tablet PO ×2 (15:30→22:49)
--- NOTE | 2023-01-30 17:13 | CON.PCM.PA_ITS ---
Assessment & Plan Assessment/Plan (1) Cancer related pain: PLAN: I think the reason the PRN's at home have not worked is that he has not been on high enough doses for his needs. Discussed options, plan increase fentanyl to 50mcg topically q3 days. Continue hydromorphone 2-4mg q4h PRN pain. Fentanyl might not be a good chcf plan for him if he continues to lose weight, but hopefully the radiation therapy will help and we can discontinue it. If he needs chcf pain meds, might need to consider a different long acting pain medication. Will follow as an outpatient to adjust medication (2) Nausea and vomiting: PLAN: Recommend low dose of haloperidol 1mg TID to control nausea, this might have the added benefit of helping prevent hiccups. Continue Zofran 8mg q8h PRN nausea (has this at home). Discontinue scopolamine, he is quite sleepy from this (although has many reasons to be sleepy). (3) Hiccups: PLAN: I'm hoping the haloperidol for nausea will also help lessen the hiccups. If not, could trial Baclofen as an outpatient. (4) Shortness of breath on exertion: PLAN: Receiving radiation therapy, which will hopefully help both the shortness of breath and the cough significantly. Educated patient and that the hydromorphone PRN can also help the shortness of breath and cough. PLAN: Plan Discussed with , we will contact her to arrange palliative liaison visit to sign papers to follow up as an outpatient. Palliative to take over prescribing. I can send his prescriptions from the office tomorrow when he is discharged. Discussed living will, POA. they have paperwork for both and are considering. Discussed options for code status, will remain a full code for now, but is planning discussion with his family and is considering DNR-Arrest. HPI Consult Data Date of Consult: 01/30/23 HPI Narrative Reason for Consultation: pain, nausea HPI Narrative: BASILIO GOSS, is a 52 M with recently diagnosed lung cancer, palliative consult requested for symptom management. Having pain in stomach and back, constant, 3-4/10 at best, 10/10 at worst, increases with coughing and with hiccups. On fentanyl patch, seemed to help at first but isn't as much recently. Has had several PRN meds at home (lowest doses of [place] and Percocet) that didn't seem to help at all. Switched to hydromorphone 2-4mg at home, got admitted before he could really tell if it was helping. On same dose here, has only gotten one prn dose in past 24 hrs. Has had intermittent hiccups for one month, they happen several times a day and last several minutes. Sometimes holding his breath helps. Hasn't been on any meds to try to prevent this yet. They are problematic because they increase his pain, and even though the hiccups only last a few minutes, the pain lasts longer. Also has nausea, it was worst after chemo but he still has nausea now even though last chemo was 1 month ago. It's constant, and he has a poor appetite and early satiety. Nausea increases with just a few bites of food. It also increases with increased pain/shortness of breath. When he walks, he gets very short of breath, breathes faster, and then gets nauseous. His recent constipation also made the nausea worse. Intake is down, he has lost 40 lbs recently, and his albumin is only 1.8 g/dL. He is short of breath all the time, but it increases with activity. He has a frequent cough as well. He has a large pleural effusion caused by obstruction from his lung mass/cancer, and has gotten 3 of a planned 10 radiation treatments. They are hoping this will be enough and he will not need a thoracentesis. Since admission, scopolamine was added and his constipation has been treated. Nausea is improved but not gone. He feels sleepier with the scopolamine. Pain is about the same, but pain meds have not been adjusted. 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 Rapid weight loss Regional lymph node metastasis present Shortness of breath on exertion Stomatitis Home Medications folic acid 1 mg tablet 1 mg PO DAILY supplement 01/20/23 [History Last Taken 01/28/23] ondansetron 8 mg disintegrating tablet 8 mg PO Q8H nausea 01/20/23 [History Last Taken 01/22/23] fentanyl 25 mcg/hr transdermal patch 25 mcg transdermal Q3D 30 days #10 ea 01/22/23 [Rx Last Taken 01/28/23] lactulose 20 gram/30 mL oral solution 20 g (30 mL) PO BID #1,200 mL 01/22/23 [Rx Last Taken 01/29/23] levofloxacin 750 mg tablet 750 mg PO DAILY #10 tabs 01/22/23 [Rx Last Taken 01/29/23] pantoprazole 40 mg tablet,delayed release (Protonix) 40 mg PO DAILY #30 tabs 01/22/23 [Rx Last Taken 01/28/23] hydromorphone 2 mg tablet (Dilaudid) 2 - 4 mg PO Q4H PRN PAIN 01/29/23 [History Last Taken 01/29/23 07:30] naproxen sodium 220 mg tablet (Aleve) 220 mg PO BID PRN pain 01/29/23 [History Last Taken 01/28/23] Allergy/AdvReac Type Severity Reaction Status Date / Time No Known Allergies Allergy Verified 01/29/23 11:14 Family History Aunt Cancer paternal - unknown type Sister Lymphoma T-cell Non Hodgkin's Surgical History no surgical history Social History household members: spouse Smoking Status: Former smoker Tobacco: How many years used: 8 how long ago did patient quit smoking: quit 30 years ago ROS Constitutional Constitutional: Reports fatigue, poor appetite and weight loss Eyes Eyes: Denies double vision ENT HEENT: Denies dry mouth Cardiovascular Cardiovascular: Reports dyspnea on exertion and rapid heart rate Respiratory/Chest Respiratory/Chest: Reports cough, shortness of breath at rest and shortness of breath with exertion Gastrointestinal Gastrointestinal: Reports abdominal pain, anorexia, constipation and nausea; Denies rectal bleeding or vomiting Genitourinary Genitourinary: Denies urinary frequency or urinary incontinence Musculoskeletal Musculoskeletal: Reports back pain; Denies numbness Integumentary Integumentary: Denies pruritus Neurologic Neurologic: Denies convulsions or headache(s) Psychiatric Psychiatric: Reports anxiety; Denies depression or visual hallucinations Endocrine Endocrinology: Denies polydipsia or polyuria Hematologic/Lymphatic Hematologic/Lymphatic: Denies easy bleeding Allergic/Immunologic Allergic/Immunologic: Denies hives Physical Exam Const alert and oriented x3 General Appearance: in distress Positive for mild (respiratory) Orientation / Consciousness: awake HEENT normocephalic and moist oral mucous membranes HEENT Narrative: no thrush, no oral lesions Nose: external nose normal External Ear: external ears normal Mouth: tongue normal Throat: posterior oropharynx normal Eyes EOMs intact bilaterally, conjunctivae normal and no scleral icterus General Eye: normal appearance of both eyes Resp Effort and Inspection: tachypneic Auscultation: diminished lung sounds left Cardio Rate: tachycardic Heart Sounds: S1 normal and S2 normal GI normal to inspection, nondistended, normoactive bowel sounds no CVA tenderness Extremity General Extremity: edema bilateral lower extremity Details: trace Neuro moves all extremities, no focal motor deficits and no sensory deficits noted Psych mental status grossly normal, thought process normal and cooperative Speech: other speaks in a loud whisper Thought Process: normal thought process Thought Content: normal thought content Attention / Concentration: attention grossly intact Memory / Cognition: memory grossly intact Insight: insight good Judgement: judgement good
--- NOTE | 2023-01-30 18:20 | NURSING ---
New Fentanyl patch applied to R shoulder. Old Fentanyl patch wasted in Rx destroyer, witnessed by Lulú Cuadra.
[2023-01-31] MEDS: HYDROmorphone 1 MG/ML Syringe IV ×2 (02:00→10:08)
[2023-01-31] MEDS: Lactated Ringers 1,000 ML 100 ML IV (04:15)
[2023-01-31 04:16] VITALS: BP 117/86; PULSE 124; RESP 19; TEMP 37; O2SAT 98
[2023-01-31] MEDS: 0.9% Saline Lock 10 ML Syringe IV ×2 (06:31→16:32)
[2023-01-31 07:21] LABS: Hematocrit 27.4 % (40-54); Hemoglobin 8.7 g/dL (13.0-16.5); Mean Corp Hgb Conc 31.8 g/dL (32-36); Mean Corpuscular Hgb 30.1 pg (27.0-32.0); Mean Corpuscular Volume 94.8 fL (80-94); Mean Platelet Vol. 8.8 fl (6.2-12.0); POSITIVE COUNT YES; POSITIVE DIFFERENTIAL YES; POSITIVE MORPHOLOGY YES; Platelet Count 290 K/mm3 (150-450); RBC Distribution Width CV 17.2 % (11.6-14.6); RBC Distribution Width SD 57.4 fl (35.1-43.9); Red Blood Count 2.89 M/mm3 (4.6-6.2); White Blood Count 21.7 K/mm3 (4.4-11.0)
[2023-01-31 07:58] VITALS: O2SAT 94
[2023-01-31 08:00] LABS: ALB/GLOB Ratio 0.3 RATIO (0.9-2.4); AST(SGOT) 104 U/L (15-37); Alanine Aminotransfer ALT/SGPT 21 U/L (16-61); Albumin, Serum 1.6 g/dL (3.2-5.0); Alkaline Phosphatase 138 U/L (45-117); Anion Gap 4 (5-15); BUN 15 mg/dL (7-18); BUN/Creat Ratio 15.6 RATIO (10-20); Calcium,Total 11.8 mg/dL (8.5-10.1); Chloride 96 mmol/L (98-107); Creatinine, Serum 0.96 mg/dL (0.70-1.30); EST Glomerular Filtration Rate 88 mL/min (>60); Est Glom Filt Rate - Afr Amer 106 mL/min (>60); Estimated Creatinine Clearance 96.96 ml/min; Globulin 4.9 g/dL (2.2-4.2); Glucose 100 mg/dL (74-106); Potassium 4.8 mmol/L (3.5-5.1); Protein, Total 6.5 g/dL (6.4-8.2); Sodium Level 132 mmol/L (136-145)
[2023-01-31 08:28] LABS: Differential Indicated MANUAL DIFF
[2023-01-31 10:00] VITALS: BP 112/78; PULSE 123; RESP 18; TEMP 36.8; O2SAT 98
--- NOTE | 2023-01-31 10:00 | CASEMGMT ---
Addendum entered by Madelyn Vega 01/31/23 13:52: Per Rosa, nurse, Dr Vasquez not willing to follow for HHC. Call to Montse @ Dr Barros's office and she was made aware. She confirms Dr Barros will follow for HHC and no appt needed to see him. Lore @ [facility] made aware of same via backline. Pt and family made aware [facility] able to accept w/tentative SOC Tu. Briefly discussed deductible not being met yet and made aware someone from [facility] will be contacting them on Friday to discuss this further. They voices understanding and appreciation. Addendum entered by Madelyn Vega 01/31/23 12:44: Call received from Montse @ Dr Barros's office who states she spoke w/Dr Barros re: [facility]. Dr Barros states he does not need to see pt prior to pt getting HHC, but states pt's oncologist should be the one following pt for HHC, as CA is primary medical issue. Montse states that Dr Barros is agreeable, though, if Dr Vasquez is not agreeable to following for HHC. Call to Dr Vasquez's office and spoke w/nurse Rosa. She states she will reach out to Dr Vasquez's office to inquire. Per Lore @ [facility], they can accept pt w/tentative SOC 02/04. She does state, though, that pt has only met $29.87 of $3,000 deductible and so pt would be responsible for 100% of HHC visits until he has met his deductible. She states will reach out to pt/family on Friday to discuss this, as pt has had hospital stays and this amt should also be applied toward deductible, but it has not been processed yet. Addendum entered by Madelyn Vega 01/31/23 11:55: Per Lore @ [facility], Dr Barros requires office visit prior to following pt's for HHC. Call to Montse, phone nurse @ Dr Barros's office, to inquire if Dr Barros would be agreeable to following for HHC without seeing him first in the office. Montse states will talk w/Dr Barros about this and will call CHAPARRO AGUILAR back. Montse was also made aware pt agreeable to Palliative care. Original Note: CHAPARRO AGUILAR NOTE: RN JEFF to room. Pt getting ready to leave room for radiation. SisterJohnathan, @ bedside, and , Ghada, arrived to room. Introduced self and role. Discussed HHC and they are both agreeable to having HHC set up. Questions answered. They are interested in pt having an aide, if available, and are aware aide comes in for bathing/dressing only and only 2-3 x's/week and they voice understanding. A list of HHC providers including quality and resource use data and consistent with the patient?s preferred geographic region, medical needs, and insurance network were provided from the [employer] to pt/family yesterday. Family's 1st HHC preference is [facility]. Call placed to Lore @ [facility]. No answer. VM left re: referral and made aware pt is discharging today. Awaiting response. Discussed other discharge planning and DME. They report good support system. SisterJohnathan, states pt has a W/C and they have access to a walker. She also states has resources to get a BSC, if needed, although pt has been reluctant to getting one up to this point. They deny having other DME needs at this time. Johnathan states she is a nurse and assists pt and w/medication mgnt and support. They state pt has appts almost every day this coming week. takes pt to most appts and Johnathan assists as needed. They have all meds needed and would like to get new medications from [facility] in [place]. They deny having other discharge planning needs at this time and made aware to ask for CM if anything further arises. They voice understanding and appreciation. When this RN JEFF spoke w/Dr Manriquez from [facility] yesterday, pt and family agreeable to Palliative services. Lore @ [facility] made aware of same. Jono KUNZ RN, CM
--- NOTE | 2023-01-31 10:02 | CASEMGMT ---
CHAPARRO AGUIL[facility] Readmission review: Index admission: 01/20 thru 01/22 Dx: Postobstructive pneumonia Readmission: 01/29 Dx: N/V/Abd pain, dehydration, constipation Pt was admitted on the above dates for the noted corresponding dx. 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 Pt has received chemotherapy treatment and is currently receiving palliative radiation tx. Pt was discharged with po levaquin to complete the tx of the pneumonia. Pt's reports pt had taken as prescribed but missed one dose the day prior to readmission d/t n/v. N/V has been determined to be related to pt's constipation which began after pt's discharge (no BM x 7days prior to presentation 01/29). Pt with pain related to cancer and is taking narcotics to control. Noted palliative care consult this admission with plan for follow-up after discharge to continue to manage pt's symptoms including pain, hiccups, n/v, and SOB. Melanie Martino RN CM
[2023-01-31] MEDS: Ensure Plus High Protein 120 ML LIQUID PO (10:05)
[2023-01-31 10:06] VITALS: BP 112/78; PULSE 123
[2023-01-31] MEDS: Enoxaparin 40 MG/0.4 ML Syringe SC (10:06)
[2023-01-31] MEDS: Folic Acid 1 MG Tablet PO (10:06)
[2023-01-31] MEDS: Lactulose 20 GM/30 ML UDC PO (10:06)
[2023-01-31] MEDS: Metoprolol Tartrate 25 MG Tablet PO (10:06)
[2023-01-31 10:15] LABS: Pathologist Review Reviewed
[2023-01-31 10:15] LABS: Pathologist Review Reviewed
--- NOTE | 2023-01-31 10:16 | CASEMGMT ---
Discharge Planning Referral sent to [facility]. Cady Scott, Discharge Planning Asst.
[2023-01-31] MEDS: Polyethylene Glycol 3350 17 GM PACKET PO (11:21)
[2023-01-31 11:47] LABS: Basophil 1 % (0-1); Lymphocyte 3 % (19-41); Metamyelocyte 3 % (0-1); Monocyte 10 % (0-10); Myelocyte 2 % (0-0); Neutrophil-Band 1 % (0-5); Neutrophil-Segmented 80 % (47-70); Total Cells Counted 100 (MANUAL DIFF)
[2023-01-31 11:48] LABS: Hypochromasia RARE; Platelet Estimate ADEQUATE (ADEQ); Polychromasia 1+
[2023-01-31 11:51] LABS: Absolute Lymphocyte Count 0.65 X10^3/uL (0.83-4.51); Absolute Neutrophil Count 17.6 X10^3/uL (2.0-7.7)
[2023-01-31] MEDS: levoFLOXacin IV 750 MG/150 ML BAG 100 MG IV (12:37)
--- NOTE | 2023-01-31 12:56 | PCM.DC.SUM ---
Providers Date of Admission: 01/30/23 Date of Discharge: 01/31/23 Primary Care Physician: Dr. Av Barros MD Consultations 01/29/23 18:04 Consult: Hospice / Palliative Care Routine Consulting Provider: [facility] Reason for Consult: Palliative Care please EMERGENT Consult: No Notified: Yes Date Notified: 01/30/23 Time Notified: 10:27 Method of Notification: case management Consult: Oncology Radiation [Consult: Radiation Oncology] Routine Consulting Provider: Randy Montes Reason for Consult: Lung cancer EMERGENT Consult: No MD Notified: Yes Date Notified: 01/29/23 Time Notified: 16:00 Method of Notification: md to md Reason For Visit: DEHYDRATION/HYPERCALCEMIA Diagnosis Discharge Diagnosis (1) Cancer related pain: Status: Acute Code(s): G89.3 - Neoplasm related pain (acute) (chronic) (2) Nausea and vomiting: Status: Acute Code(s): R11.2 - Nausea with vomiting, unspecified (3) Hiccups: Status: Acute Code(s): R06.6 - Hiccough (4) Shortness of breath on exertion: Status: Acute Code(s): R06.02 - Shortness of breath Medications at Discharge Home Medications folic acid 1 mg tablet 1 mg PO DAILY supplement 01/20/23 ondansetron 8 mg disintegrating tablet 8 mg PO Q8H nausea 01/20/23 lactulose 20 gram/30 mL oral solution 20 g (30 mL) PO BID #1,200 mL 01/22/23 pantoprazole 40 mg tablet,delayed release (Protonix) 40 mg PO DAILY #30 tabs 01/22/23 hydromorphone 2 mg tablet (Dilaudid) 2 - 4 mg PO Q4H PRN PAIN 01/29/23 fentanyl 50 mcg/hr transdermal patch 50 mcg transdermal Q3D #0 ea 01/31/23 haloperidol 1 mg tablet 1 mg PO TID PRN nausea and vomiting #0 tabs 01/31/23 hydromorphone 2 mg tablet 2 - 4 mg (1 - 2 x 2 mg) PO Q4H PRN PAIN #0 tabs 01/31/23 polyethylene glycol 3350 17 gram oral powder packet 17 g PO BID #0 ea 01/31/23 sennosides 8.6 mg capsule (senna) 8.6 mg PO BID #1 cap 01/31/23 Hospital Course Operations None Procedures 2-D Echocardiogram and - (Mark/chest x-ray CT abdomen pelvis/chest x-ray) Summary of Care Provided Minutes Spent on Discharge: 37 Hospital Course: Mr. Montejo is a 52-year-old white male who presented to the emergency department at [facility] on 01/29/2023 due to intractable nausea and vomiting as well as upper abdominal pain that had been worsening over 2 days prior to presentation. The patient had a recent admission here from 01/20/2023 through 01/22/2023 and was diagnosed with postobstructive pneumonia. He had a significant leukocytosis which is slowly improving and was discharged home on Levaquin to complete a total of 10 days. He was diagnosed with metastatic stage IV lung cancer and started radiation and chemotherapy recently. Radiation started earlier this week on Friday and he reported he developed nausea and vomiting and upper abdominal pain since that point time. He has been on chronic narcotics and feels that he is constipated as well. He had no hematemesis or coffee-ground emesis. His upper abdominal pain was constant and radiated to his right flank. The patient reported he lost a significant amount of weight related to his cancer and there was concerned about having lower extremity edema that appeared to be related to malnutrition as his albumin was very low. He reported he had been able to get his medications down for the most part. His indicated he probably only missed 1 day of his Levaquin. He saw his radiation oncologist the day of admission who will radiate him and then sent him to the emergency department due to his ongoing symptoms. Vital signs on presentation show a temperature of 96.9, heart rate 135 that improved to 119 after IV fluids, blood pressure was 114/91, respiratory rate was 20 and oxygen saturation was 93% on 3 L nasal cannula which is his baseline supplemental oxygen. CBC shows a leukocytosis that is improving with a current white count of 22.6, anemia with a hemoglobin of 8.9 which is stable. Chemistry panel reveals a sodium of 128 which is stable, BUN is 22 and serum creatinine is 0.82. His BUN seems to be uptrending. His calcium was 12.0 and during his last admission was 10.6. I suspect this is elevated more due to dehydration anything else. His AST is mildly elevated 115 and his alk phos is 159. His albumin is 1.8. A lipase was obtained due to his abdominal pain and was 13. Chest x-ray shows previously noted opacification of the left hemithorax and a stable left to right mediastinal shift with likely compressive atelectasis at the right costophrenic angle. We admitted him to the medical floor and maintain his Levaquin via IV to complete his course over the 3 days he was hospitalized. He was placed on IV fluids for hydration and started on IV Haldol for nausea. We maintained his home narcotics and added IV Dilaudid for breakthrough pain. He was placed on an aggressive bowel regimen as a CT of the abdomen pelvis showed fairly significant constipation. He was able to have several good bowel movements prior to discharge. He was evaluated by palliative care medicine which adjusted his pain medication, added Haldol for his nausea and suggested the addition of senna to his bowel regimen for constipation as it will continue to be a chronic problem with his chronic narcotic requirements. The CT of his abdomen pelvis that we obtained on admission showed no bowel obstruction abscess or free fluid, normal appendix, worsening bulky masses of the bilateral adrenal glands, significant retroperitoneal adenopathy, bony metastatic changes in the spine with pathologic fracture at L3 and extensive left lower lobe L airspace consolidation with a left effusion and a pericardial effusion. There is also a small note [place] in his right lung that is suspicious for pulmonary metastatic disease. I discussed the pleural effusion with radiation oncology and they wanted to hold off right now with a thoracentesis and will follow him as an outpatient. We obtain an echocardiogram to assure that he was not in any tamponade physiology due to his pericardial effusion and no signs of tamponade were present. Pericardial effusion was estimated as moderate on his echocardiogram and his EF was 70% with no diastolic dysfunction. He was feeling improved and able to take in p.o. diet especially with supplementation and his abdominal pain was significantly reduced. He was discharged home in stable condition on 01/31/2023. Changes to his narcotic regimen will be managed by palliative care and prescriptions were sent by palliative care to the local pharmacy. They also sent prescriptions for antiemetics. We added MiraLAX twice daily as well as senna twice daily to his bowel regimen to help with ongoing concerns for constipation due to chronic narcotic use. He is to follow-up with his primary care physician as needed and with radiation oncology on Friday after his radiation appointment. 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 Tachycardia Severe malnutrition Chronic normocytic anemia Hyponatremia-improved and stable GERD Physical Exam Const alert, oriented x3, no apparent distress and average body habitus; Negative for healthy appearing or well nourished Constitutional Narrative: Middle-aged, white male, reclining in a chair dozing off but does awaken and interact, appears very comfortable at this time, voice is affected from laryngeal nerve involvement, sister at bedside General Appearance: cooperative, comfortable, well kempt and well developed Orientation / Consciousness: awake, oriented to person, oriented to place and oriented to time Exam Limitations: no limitations Nutritional Appearance: thin HEENT normocephalic, head/scalp atraumatic and hearing grossly normal bilaterally HEENT Narrative: Mallampati 2, no thrush Eyes PERRL and EOMs intact bilaterally; Negative for conjunctivae normal Eyes Narrative: Conjunctiva are mildly pale, no scleral icterus Neck no lymphadenopathy and supple Neck Narrative: Trachea midline, no thyroid enlargement Resp normal respiratory effort, no retractions and no use of accessory muscles Resp Narrative: No tachypnea absence of breath sounds at almost the entire left lung sans the left apex, normal breath sounds on the right Auscultation: Negative for rales, rhonchi or wheezes Cardio regular rhythm, S1 normal heart sound, S2 normal heart sound, no murmurs, no rub, no gallops and no clicks Cardio Narrative: Sinus tachycardia GI normal to inspection, nondistended, normoactive bowel sounds, soft to palpation and non-tender GI Narrative: No significant tender Extremity Extremity Narrative: Trace bilateral lower extremity pedal edema, no clubbing or cyanosis Skin no wounds, skin turgor normal and no jaundice Skin Narrative: Med port right chest-clean dry and Neuro moves all extremities and no focal motor deficits Neuro Narrative: Sling begin voice is very soft due to 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 and he vocalizes in a whisper Psych Psych Narrative: Sleepy but appears calm verbal and affect is normaly Medical Records Data Medical Nutrition Assessment Dietitian: Malnutrition Criteria Met Start: 01/30/23 13:48 Freq: Status: Active Protocol: Document 01/30/23 13:48 ANTOINETTE (Rec: 01/30/23 13:48 LO [id number]) Nutrition Malnutrition Evidence of Malnutrition Exists Yes Malnutrition (severe): Chronic Evidenced By Suboptimal Energy Intake ( Severe),Weight Loss (Severe), Physical Changes (Severe) Intake Problem Increased Nutrient Needs (specify) Etiology calories/protein related to increased demand Signs/Symptoms as evidenced by stage 4 lung cancer with mets on radiation therapy Status Active Problem Clinical Problem Chronic Disease or Condition Related Malnutrition Etiology severe related to stage 4 lung cancer with mets to adrenal gland, bone, and brain Signs/Symptoms as evidenced by <75% PO intake of estimated energy needs for >1 month, 35.3lbs (15.7%) weight loss in 3 months, and severe fat and muscle loss to temporal and orbital regions. Status Active Problem Recommendation Dietitian Recommendations/Changes Continue Regular diet to optimize oral intakes. RD will change ONS to 120mL EPHP 4x with medpass to provide supplemental energy Weight / BMI Weight Weight: 85.8 kg Body Mass Index (BMI) 26.4 ABG / Lab / Microbiology Data 01/31/23 07:05 01/31/23 07:05 Laboratory: Laboratory Results - last 24 hr 01/29/23 13:52: Diff Path Review Reviewed 01/30/23 06:25: Diff Path Review Reviewed 01/31/23 07:05: WBC 21.7 H, RBC 2.89 L, Hgb 8.7 L, Hct 27.4 L, MCV 94.8 H, MCH 30.1, MCHC 31.8 L, RDW Std Deviation 57.4 H, RDW Coeff of Angelica 17.2 H, Plt Count 290, MPV 8.8, Neut % (Auto) Not Reportable, Absolute Neuts (auto) 17.6 H, Absolute Lymphs (auto) 0.65 L, Total Counted 100, Neutrophils % (Manual) 80 H, Band Neutrophils % 1, Lymphocytes % (Manual) 3 L, Monocytes % (Manual) 10, Basophils % (Manual) 1, Metamyelocytes % 3 H, Myelocytes % 2 H, Diff Path Review May foll, Platelet Estimate ADEQUATE, Polychromasia 1+, Hypochromasia RARE, Sodium 132 L, Potassium 4.8, Chloride 96 L, Carbon Dioxide 32.0, Anion Gap 4 L, BUN 15, Creatinine 0.96, Estim Creat Clear Calc 96.96, Est GFR (MDRD) Af Amer 106, Est GFR (MDRD) Non-Af 88, BUN/Creatinine Ratio 15.6, Glucose 100, Calcium 11.8 H, Total Bilirubin 0.70, AST 104 H, ALT 21, Alkaline Phosphatase 138 H, Total Protein 6.5, Albumin 1.6 L, Globulin 4.9 H, Albumin/Globulin Ratio 0.3 L D/C Instructions Discharge Diet: No restrictions Meaningful Use Info Meaningful Use Diagnoses (Choose all that apply): None applicable Discharge Plan Admission Admit Date/Time: 01/30/23 12:51 Primary Reason for Your Visit: Abdominal pain/nausea/vomiting Attending Provider: Shanelle Barrios Primary Care Provider: Av Barros Consulting Providers: Randy Montes; Angel Riley; Holli Manriquez; Phyllis Pham; Regi Limon [employer] Instructions Additional Instructions / Restrictions: 1. If starts to have diarrhea okay to hold MiraLAX Discharge Orders/Prescriptions Prescriptions: New fentanyl 50 mcg/hr Patch 72 Hour 50 mcg transdermal Q3D Qty: 0 0RF haloperidol 1 mg Tablet 1 mg PO TID PRN (Reason: nausea and vomiting) Qty: 0 0RF hydromorphone 2 mg Tablet 2 - 4 mg PO Q4H PRN (Reason: PAIN) Qty: 0 0RF polyethylene glycol 3350 17 gram Powder In Packet 17 g PO BID Qty: 0 0RF senna 8.6 mg capsule 8.6 mg PO BID Qty: 1 0RF Continued ondansetron 8 mg tablet,disintegrating 8 mg PO Q8H Patient Comments: DISSOLVE 1 TABLET IN MOUTH EVERY 8 HOURS NEEDED FOR NAUSEA AND VOMITING folic acid 1 mg tablet 1 mg PO DAILY Patient Comments: TAKE 1 TABLET BY MOUTH ONCE DAILY pantoprazole [Protonix] 40 mg tablet,delayed release (DR/EC) 40 mg PO DAILY Qty: 30 0RF lactulose 20 gram/30 mL solution 20 g PO BID Qty: 1200 0RF Rx Instructions: take one to two times daily for treatment of constipation Discontinued fentanyl 25 mcg/hr Patch 72 Hour 25 mcg transdermal Q3D 30 Days Qty: 10 0RF levofloxacin 750 mg tablet 750 mg PO DAILY Qty: 10 0RF Rx Instructions: Start on 01/22/2023 naproxen sodium [Aleve] 220 mg tablet 220 mg PO BID PRN (Reason: pain) No Action hydromorphone [Dilaudid] 2 mg tablet 2 - 4 mg PO Q4H PRN (Reason: PAIN) Rx Instructions: 2-4 mg every four hours as needed for breakthrough pain-May take with 1 Aleve, with maximal amount of Aleve per day at 4 Referrals / Follow Up: Av Barros MD [Primary Care Provider] - See Referral Note (As needed) Holli Manriquez MD [Med Staff - Active Staff] - See Referral Note (As instructed) Randy Montes DO [Med Staff - Active Staff] - See Referral Note (Dr. Montes plans to see you on Friday after radiation) Disposition Disposition (needs filled in before D/C Order can be placed): Home Health Service Charges/Coding Visit Charges Inpatient E&M: 04515 Disch Hosp >30min
[2023-01-31 16:00] VITALS: BP 105/73; PULSE 119; RESP 16; TEMP 37.1; O2SAT 97
[2023-02-03 13:24] LABS: Pathologist Review Reviewed
== END 2023-01-31 16:42 | disposition home health service (06) | DRG 193 ==
LOC: ED 12:59 → PCU 16:52
PROVIDERS: Admitting Provider Internal Medicine; Emergency Provider Emergency Medicine; PCP Family Medicine; Visit Provider Internal Medicine
DX: J18.9 Pneumonia, unspecified organism (principal); E43 Unspecified severe protein-calorie malnutrition; I31.39 Other pericardial effusion (noninflammatory); C77.2 Secondary and unspecified malignant neoplasm of intra-abdominal lymph nodes; C79.51 Secondary malignant neoplasm of bone; C79.70 Secondary malignant neoplasm of unspecified adrenal gland; M84.48XA Pathological fracture, other site, initial encounter for fracture; C34.92 Malignant neoplasm of unspecified part of left bronchus or lung; J96.11 Chronic respiratory failure with hypoxia; E87.1 Hypo-osmolality and hyponatremia; J90 Pleural effusion, not elsewhere classified; E27.9 Disorder of adrenal gland, unspecified; E83.52 Hypercalcemia; D64.9 Anemia, unspecified; K21.9 Gastro-esophageal reflux disease without esophagitis; E86.0 Dehydration; K59.00 Constipation, unspecified; E78.00 Pure hypercholesterolemia, unspecified; Z87.891 Personal history of nicotine dependence; Z79.891 Long term (current) use of opiate analgesic; Z51.5 Encounter for palliative care; R10.9 Unspecified abdominal pain; G89.3 Neoplasm related pain (acute) (chronic)
CPT/HCPCS: 36591; 71046; 74176; 77387; 77412; 80053; 83690; 83735; 84100; 84484; 85025; 85610; 93306; 94668; 97802; 99252; 99284; J7030; J7120; A4216; G0463

== ENCOUNTER 2023-02-05 10:52 | Inpatient (IN) | payer OTHER, SELFPAY ==
[2023-02-05] VITALS (16 sets, daily range): BP systolic 77–168; BP diastolic 43–79; PULSE 129–146; RESP 12–28; TEMP 36.4–37.9; O2SAT 94–100; BMI 25.7; BMI 28.1
--- NOTE | 2023-02-05 11:29 | EKG12_ITS ---
Test Reason : WEAKNESS Blood Pressure : / mmHG Vent. Rate : 139 BPM Atrial Rate : 139 BPM P-R Int : 128 ms QRS Dur : 076 ms QT Int : 254 ms P-R-T Axes : 033 031 011 degrees QTc Int : 386 ms Sinus tachycardia Nonspecific T wave abnormality Abnormal ECG Confirmed by CHRISTINA WETZEL MD ([id number]), tape editor KAREN VIZCARRA ([id number]) on 02/06/2023 2:21:09 PM Referred By: ARMOND Confirmed By:CHRISTINA WETZEL MD
--- NOTE | 2023-02-05 11:29 | RAD_ITS ---
STUDY: X-RAY CHEST REASON FOR EXAM: Male, 52 years old. Sob TECHNIQUE: Single AP portable view of the chest. COMPARISON: Comparison is made with prior examination dated January 29, 2023. FINDINGS: A right-sided Port-A-Cath is seen with the tip in the right atrium. Persistent opacification of the left hemithorax. This may represent a combination of a large pleural effusion and volume loss in the left lung. Increased markings in the medial aspect of the right upper lobe. There is mild cardiac enlargement. Normal mediastinum and amaris. Normal visualized pulmonary arteries. There is atherosclerotic tortuosity of the aortic arch and descending thoracic aorta. Normal visualized thoracic spine. Normal visualized ribs, clavicles, and shoulders. There is no demonstrated abnormality of the visualized soft tissue structures of the upper abdomen. RAD/Chest 1 View (Portable) IMPRESSION: Persistent opacification of the left hemithorax suggests a very large left pleural effusion with underlying compressive atelectasis. Increased markings in the right upper lobe. Electronically Signed: Mazin Garber MD at 12:14 EDT ,
--- NOTE | 2023-02-05 11:31 | EX.ED.DYSGE1 ---
HPI History of Present Illness Chief Complaint: General Illness Informant: patient and spouse/S.O. Narrative Narrative: 52-year-old with metastatic stage IV lung cancer had chemotherapy about a month ago, now on radiation, started having a fever last night, significant other states it was 100.2, and he has been able to get around with his walker, but this morning he is extremely weak which is the main reason she brought him to the ED. He is dyspneic but she provides most of the history and states he appears no more short of breath than usual. He has a chronic cough, occasionally brings up some white phlegm which is no different than usual, no hemoptysis. No vomiting or diarrhea lately he has been constipated, no problems urinating. He does not talk well, she states this is his baseline although worse than usual, he was talking to her more yesterday than now. [facility] Medical History (Updated 02/05/23 @ 16:[address] 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 Nausea Rapid weight loss Regional lymph node metastasis present Shortness of breath on exertion Stomatitis Home Medications folic acid 1 mg tablet 1 mg PO DAILY supplement 01/20/23 [History Last Taken 01/28/23] lactulose 20 gram/30 mL oral solution 20 g (30 mL) PO BID #1,200 mL 01/22/23 [Rx Last Taken 01/29/23] pantoprazole 40 mg tablet,delayed release (Protonix) 40 mg PO DAILY #30 tabs 01/22/23 [Rx Last Taken 01/28/23] hydromorphone 2 mg tablet (Dilaudid) 2 - 4 mg PO Q4H PRN PAIN 01/29/23 [History Last Taken 01/29/23 07:30] fentanyl 50 mcg/hr transdermal patch 50 mcg transdermal Q3D #0 ea 01/31/23 [Rx Last Taken 02/02/23] haloperidol 1 mg tablet 1 mg PO TID PRN nausea and vomiting #0 tabs 01/31/23 [Rx Last Taken Unknown] hydromorphone 2 mg tablet 2 - 4 mg (1 - 2 x 2 mg) PO Q4H PRN PAIN #0 tabs 01/31/23 [Rx Last Taken Unknown] polyethylene glycol 3350 17 gram oral powder packet 17 g PO BID #0 ea 01/31/23 [Rx Last Taken 02/03/23] sennosides 8.6 mg capsule (senna) 8.6 mg PO BID #1 cap 01/31/23 [Rx Last Taken Unknown] ondansetron 8 mg disintegrating tablet 8 mg PO Q8H nausea #30 tabs 02/03/23 [Rx Last Taken Unknown] Allergy/AdvReac Type Severity Reaction Status Date / Time No Known Allergies Allergy Verified 02/05/23 10:57 Family History Aunt Cancer paternal - unknown type Sister Lymphoma T-cell Non Hodgkin's Social History household members: spouse Smoking Status: Former smoker Tobacco: How many years used: 8 how long ago did patient quit smoking: quit 30 years ago ROS ROS ED Review of Systems ROS Unobtainable: due to mental status Constitutional Constitutional ED: Reports fever(s) and weakness Cardiovascular Cardiovascular: Denies chest pain Respiratory/Chest Respiratory/Chest: Reports other Details: Patient denies being short of breath right now although he appears to be short of breath. Occasional white sputum with his chronic cough EXAM Physical Exam Const Vital Signs: 02/05/23 10:53 02/05/23 11:21 02/05/23 11:21 Temperature 98.6 F Temperature Source Temporal Pulse Rate 142 H Respiratory Rate 18 23 H Respiratory Effort Short of Breath Labored Respiratory Pattern Tachypnea Blood Pressure 168/66 H 79/58 L Blood Pressure Mean 100 65 Pulse Ox 98 99 Oxygen Delivery Method Nasal Cannula Oxygen Flow Rate (L/min) 6 02/05/23 11:52 02/05/23 12:16 02/05/23 12:31 Temperature Temperature Source Pulse Rate 136 H Respiratory Rate 22 H Respiratory Effort Respiratory Pattern Blood Pressure 77/63 L 79/64 L Blood Pressure Mean 67 69 Pulse Ox 100 99 Oxygen Delivery Method Nasal Cannula Nasal Cannula Oxygen Flow Rate (L/min) 6 5 02/05/23 13:24 02/05/23 16:13 02/05/23 16:17 Temperature Temperature Source Pulse Rate 129 H 130 H 129 H Respiratory Rate 22 H 24 H 21 H Respiratory Effort Respiratory Pattern Blood Pressure 84/64 L 88/72 L 100/68 Blood Pressure Mean 70 77 78 Pulse Ox 98 97 98 Oxygen Delivery Method Nasal Cannula Nasal Cannula Nasal Cannula Oxygen Flow Rate (L/min) 5 5 5 Positive well nourished and well developed General Appearance ED: well developed and NAD HEENT Reports moist mucous membranes HEENT Narrative: No stridor normocephalic and atraumatic Eyes PERRL and EOMs intact bilaterally Neck full ROM, supple and no JVD Resp clear to auscultation bilaterally Resp Narrative: Appears to be in mild respiratory distress. Shallow breathing. Cardio regular rate, regular rhythm and no murmurs Rate: tachycardic GI non-tender and non-distended Auscultation: normoactive bowel sounds Palpation: soft Back/Spine no CVA tenderness General Back: other FROM Extremity normal to inspection General Extremety ED: Yes edema; Negative for pulses abnormal or tenderness General Extremity: edema bilateral lower extremity Details: moderate; Negative for pulses abnormal Neuro CN's II-XII intact bilaterally and no sensory deficits noted Neuro Narrative: Lethargic, alerts to voice although his eyes are already open, he does follow commands and moves all 4 extremities equally just extremely symmetrically weak. [place] Coma Scale: document GCS findings Spontaneous Obeys Commands Confused 14 Sensorium / Orientation: awake, alert and lethargic Motor Exam: general weakness Skin no rashes or lesions noted and no wounds Sepsis Attestation Sepsis Alert: Yes Sepsis Attestation: Agree w/Sepsis Date exam was performed: 02/05/23 Time exam was performed: 15:00 Possible Source of Sepsis: Pulmonary Sepsis Organ Dysfunction Criteria Present: SBP < 90 mmHg or MAP < 65 mmHg (none of the other crit present) Fluid Resuscitation Fluid resuscitation indicated?: Yes Fluid Resuscitation ordered: Lesser volume fluid bolus ordered Amount of fluid ordered: 2,000 Reason for lesser fluid bolus:: BP Responded to a lesser volume Sepsis Note Date exam was performed: 02/05/23 Time exam was performed: 16:23 Sepsis Attestation: Sepsis re-evaluation was performed Response to fluids: Fluid responsive hypotension MDM MDM MDM Narrative Medical decision making narrative: Reviewed some old records, the patient had a pericardial effusion that was seen on echo without evidence of tamponade. I started the patient on IV fluid bolusing since he is hypotensive and tachycardic and looks poorly here although he is breathing okay and does not require emergent intubation. Stat portable chest x-ray shows whiteout on the left side, this is on my interpretation and I compared it to a prior 2 view, it looks similar. In looking at prior admission, it sounds like he did have a left pleural effusion and pneumonia with compressive atelectasis and possible obstructive pneumonitis, he did not get bronchoscopy and he did not have a thoracentesis. He is on palliative care, and saw pulmonary as an outpatient yesterday, they did not recommend a Pleurx catheter because of his relatively short life expectancy. I am ordering empiric antibiotics Zosyn in addition to a CT of the chest to evaluate further the pathology on the left hemithorax and heart. CT of the chest images were reviewed as well as report which I agree with. He does have a leukocytosis which would be consistent with infection/pneumonia, however his lactate is normal and he is still hypotensive after a liter of fluid. Also obtained an ABG, shows no acute acidosis or hypercapnia. Started another liter, pressure has come up from 79-80/64 after about a quarter of it, but I am concerned about the large pericardial effusion he was diagnosed with before, and if he has tamponade now he will need to be transferred to a different facility for treatment for that. I discussed with Dr. Dover, he agrees with reading stat echo if we were obtaining it. I discussed with family first. At this time they do not wish to make the patient hospice, they are aware of his poor prognosis, and would consider emergent treatment with pericardial window if he truly has emergent tamponade so a stat echocardiogram was obtained. This was obtained and I discussed the results with Dr. Dover who read it, he states there is a small-moderate pericardial effusion, no sign of tamponade, no significant difference compared with the prior echo last week, and he agrees that the patient should not need a pericardial window for this at this time. With the second liter of IV fluids, his blood pressures come up to 100/68. His heart rate is down to the high 120s. Discussed with hospitalist, requests PCU admission. History & Record Review Additional record(s) reviewed:: Prior inpatient record Lab Data Attestation: I reviewed the patient's lab results. Labs: Laboratory Results - last 24 hr 02/05/23 11:17 WBC 14.1 H RBC 3.14 L Hgb 8.9 L Hct 28.5 L MCV 90.8 MCH 28.3 MCHC 31.2 L RDW Std Deviation 54.9 H RDW Coeff of Angelica 17.4 H Plt Count 168 MPV 9.4 Neut % (Auto) Not Reportable Absolute Neuts (auto) 10.4 H Absolute Lymphs (auto) 0.84 Total Counted 100 Neutrophils % (Manual) 70 Band Neutrophils % 4 Lymphocytes % (Manual) 6 L Monocytes % (Manual) 12 H Eosinophils % (Manual) 4 Metamyelocytes % 4 H Diff Path Review May foll PT 14.6 INR 1.1 APTT 48.4 H Sodium 128 L Potassium 5.4 H Chloride 93 L Carbon Dioxide 31.0 Anion Gap 4 L BUN 38 H Creatinine 1.41 H Estim Creat Clear Calc 66.01 Est GFR (MDRD) Af Amer 68 Est GFR (MDRD) Non-Af 56 L BUN/Creatinine Ratio 27.0 H Glucose 90 Lactic Acid 1.4 Calcium 12.3 H Total Bilirubin 0.60 AST 257 H ALT 32 Alkaline Phosphatase 320 H Troponin I High Sens < 3 L Total Protein 6.6 Albumin 1.6 L Globulin 5.0 H Albumin/Globulin Ratio 0.3 L ABG Data ABG results: ABG 02/05/23 12:19 Specimen Type ART Sample Site L Brach pH 7.44 Bicarbonate Actual 32.6 H Total CO2 34 Base Excess 8 H O2 Saturation 98 ABG pCO2 47.9 H ABG pO2 102 H O2 Delivery Device Cannula Liter Flow 6.0 Radiography Diagnostic Testing: Clinical Impression(s) from Imaging Studies Chest X-Ray 02/05/23 11:29 IMPRESSION: Persistent opacification of the left hemithorax suggests a very large left pleural effusion with underlying compressive atelectasis. Increased markings in the right upper lobe. Electronically Signed: Mazin Garber MD at 12:14 EDT , Chest CT 02/05/23 12:16 IMPRESSION: Soft tissue mass in the left perihilar region and left upper lobe with almost complete collapse of the left lung with a moderate sized left pleural effusion. Small right pleural effusion with right basilar atelectasis. Shift of the heart and mediastinum towards the left side of midline. Bilateral adrenal masses. Electronically Signed: Mazin Garber MD at 13:02 EDT , Echocardiogram 02/05/23 14:38 Interpretation Summary The estimated ejection fraction is 70-75% %. Hyperdynamic left ventricle No echocardiographic sign of RV collapse Small to moderate size pericardial effusion No echocardiographic signs of cardiac tamponade noted Large pleural effusion noted In comparison to previous echocardiogram small to moderate size pericardial effusion. Ordering Physician: Les Toro Referring Physician: Av Barros MD Performed By: [place] RVT and Student Rhythm Strip Rhythm Strip: Sinus Tach Rate: 140 Ectopy: None EKG Initial EKG: Attestation: I personally reviewed and interpreted this EKG as follows: Interpretation: No Acute Injury Pattern and Sinus Tachycardia Comments: No electrical alternans Prior EKG tracings: available for review Prior: Unchanged Management Discussion w/another healthcare provider: Hospitalist and Rn Perioperative (cardiology) Critical Care Time Critical Care Time: Yes Critical care time (excluding procedures): 30-74 minutes (45 min), Including time spent:, Discussing w/Patient &/or Family/Assigner, Discussing w/Consultants, Arranging Admission or Transfer and Performing Direct Patient Care at Bedside Discharge Plan Dx/Rx/DC Orders Clinical Impression: Sepsis, Adenocarcinoma of lung, stage 4, Pneumonia, MANSOOR (acute kidney injury), Pleural effusion, left, Encephalopathy Disposition Disposition: Acute Care Hospital [facility]
[2023-02-05 11:47] LABS: Hematocrit 28.5 % (40-54); Hemoglobin 8.9 g/dL (13.0-16.5); Mean Corp Hgb Conc 31.2 g/dL (32-36); Mean Corpuscular Hgb 28.3 pg (27.0-32.0); Mean Corpuscular Volume 90.8 fL (80-94); Mean Platelet Vol. 9.4 fl (6.2-12.0); POSITIVE COUNT YES; POSITIVE DIFFERENTIAL YES; POSITIVE MORPHOLOGY YES; Platelet Count 168 K/mm3 (150-450); RBC Distribution Width CV 17.4 % (11.6-14.6); RBC Distribution Width SD 54.9 fl (35.1-43.9); Red Blood Count 3.14 M/mm3 (4.6-6.2); White Blood Count 14.1 K/mm3 (4.4-11.0)
[2023-02-05 11:49] LABS: Differential Indicated MANUAL DIFF
[2023-02-05 11:52] LABS: International Normalized Ratio 1.1; Prothrombin Time (Protime)PT. 14.6 SECONDS (11.7-14.9)
[2023-02-05] MEDS: 0.9% Normal Saline 1,000 ML 999 ML IV ×2 (11:52→13:54)
[2023-02-05 11:53] LABS: Partial Thromboplast Time 48.4 Seconds (24.1-36.2)
[2023-02-05 12:06] LABS: ALB/GLOB Ratio 0.3 RATIO (0.9-2.4); AST(SGOT) 257 U/L (15-37); Alanine Aminotransfer ALT/SGPT 32 U/L (16-61); Albumin, Serum 1.6 g/dL (3.2-5.0); Alkaline Phosphatase 320 U/L (45-117); Anion Gap 4 (5-15); BUN 38 mg/dL (7-18); Calcium,Total 12.3 mg/dL (8.5-10.1); Chloride 93 mmol/L (98-107); Creatinine, Serum 1.41 mg/dL (0.70-1.30); EST Glomerular Filtration Rate 56 mL/min (>60); Est Glom Filt Rate - Afr Amer 68 mL/min (>60); Estimated Creatinine Clearance 66.01 ml/min; Glucose 90 mg/dL (74-106); Potassium 5.4 mmol/L (3.5-5.1); Protein, Total 6.6 g/dL (6.4-8.2); Sodium Level 128 mmol/L (136-145); Troponin-I HS < 3 pg/mL (3.0-78.0)
[2023-02-05 12:09] LABS: Lactic Acid 1.4 mmol/L (0.4-1.9)
--- NOTE | 2023-02-05 12:10 | CM.ED ---
Social Work Referral Source: CHAPARRO Hayes Referral Reason: resources/ advanced care planning specialist Stacy reviewed presenting symptoms and recent events regarding patient's care and cancer diagnosis. Patient's informed RN the patient is active with palliative care. Patient's also inquiring about advanced care planning. SW met with patient and patient's and introduced herself and role as [facility] SW. Patient lying in hospital bed with eyes closed, patient's agreeable to talk. SW provided education regarding advanced care planning and a copy of HCPOA and LW documents. Patient's reports they started HCPOA documents with another family member's assistance but haven't completed them. SW discussed options to complete the documents while at [facility] or in the community dependent on patient's ability to participate. SW also reviewed information regarding palliative and hospice services. Patient's reports starting palliative and home health care services yesterday. No other needs voiced at this time, SW remains available if need arises. Sindi Matias CUSTOMER SERVICE AGENT, [place]
--- NOTE | 2023-02-05 12:16 | CT_ITS ---
STUDY: CT CHEST WITHOUT CONTRAST REASON FOR EXAM: Male, 52 years old. Left pleural effusion/pneumonia RADIATION DOSAGE (If Supplied By Facility): CTDIvol = ( 19.69 ) mGy, DLP = ( 629.72 ) mGycm TECHNIQUE: Transaxial imaging was performed without the administration of intravenous contrast material. Multiplanar coronal and sagittal images were reformatted. Individualized dose optimization techniques were used for this CT. COMPARISON: Comparison is made with prior chest radiograph done earlier in the day as well as prior CT scan of the chest dated January 20, 2023. FINDINGS: CHEST Limited assessment of the left upper lobe and left thyroid mass due to lack of IV contrast. I suspect a 7.2 cm x 10 cm mass in the left perihilar and suprahilar region. Moderate sized left pleural effusion with collapse of the left lung. There is shift of the heart and mediastinal structures toward the left side of the midline. There is evidence of a small right pleural effusion with right basilar atelectasis. There is a moderate-sized pericardial effusion. There are calcifications of the coronary arteries. Moderate size pericardial effusion. Normal mediastinum. Normal hilar regions. Normal unenhanced pulmonary arteries. Normal aorta arch and descending thoracic aorta. There are degenerative changes of the thoracic spine. There is a 3.7 cm x 3.8 cm mass in the left adrenal gland. There is also evidence of a 3.5 cm x 4.5 cm mass in the right adrenal gland. . CT/Chest without Contrast IMPRESSION: Soft tissue mass in the left perihilar region and left upper lobe with almost complete collapse of the left lung with a moderate sized left pleural effusion. Small right pleural effusion with right basilar atelectasis. Shift of the heart and mediastinum towards the left side of midline. Bilateral adrenal masses. Electronically Signed: Mazin Garber MD at 13:02 EDT ,
[2023-02-05 12:18] LABS: Eosinophil 4 % (0-5); Lymphocyte 6 % (19-41); Metamyelocyte 4 % (0-1); Monocyte 12 % (0-10); Neutrophil-Band 4 % (0-5); Neutrophil-Segmented 70 % (47-70); Total Cells Counted 100 (MANUAL DIFF)
[2023-02-05 12:19] LABS: Absolute Lymphocyte Count 0.84 X10^3/uL (0.83-4.51); Absolute Neutrophil Count 10.4 X10^3/uL (2.0-7.7)
[2023-02-05 12:23] LABS: Base Excess 8 mmol/L (-2 to +2); Bicarbonate 32.6 mmol/L (22-26); Blood Gas Specimen Type ART; O2 Delivery Device Cannula; PO2 102 mmHG (75-100); SITE L Brach; SO2 98 % (95-99); Total Carbon Dioxide 34 mmol/L; pCO2 47.9 mmHg (35-45); pH 7.44 (7.35-7.45)
--- NOTE | 2023-02-05 14:38 | ECHOL_ITS ---
Reason For Study: DYSPNEA Procedure This was a limited 2D transthoracic echocardiogram. The study was technically difficult. Exam performed portable in ED. Left Ventricle Normal LV size. The estimated ejection fraction is 70-75% %. Hyperdynamic left ventricle. Right Ventricle Normal RV size. Normal systolic function. No echocardiographic sign of RV collapse. Atria Normal left atrium. Normal right atrium. Mitral Valve The mitral valve is structurally normal. No prolapse or stenosis seen. Tricuspid Valve Normal tricuspid valve. Aortic Valve Normal aortic valve. Pulmonic Valve The pulmonic valve is not well visualized. Great Vessels The aortic root is not well visualized. Pericardium/Pleural Small pericardial effusion. Small to moderate size pericardial effusion No echocardiographic signs of cardiac tamponade noted. MMode/2D Measurements & Calculations LVIDd: 4.4 cm IVSd: 1.2 cm LVAd ap4: 22.0 cm2 LVIDs: 2.5 cm LVPWd: 1.1 cm LVLd ap4: 8.1 cm FS: 42.5 % EDV(MOD-sp4): 50.4 ml EDV(sp4-el): 50.4 ml LVAs ap4: 11.7 cm2 LVLs ap4: 6.4 cm ESV(MOD-sp4): 17.2 ml ESV(sp4-el): 18.2 ml EF(MOD-sp4): 65.9 % EF(sp4-el): 64.0 % SV(MOD-sp4): 33.2 ml SV(sp4-el): 32.2 ml LA dimension(2D): 3.2 cm ECHO/Echo, Limited Study Interpretation Summary The estimated ejection fraction is 70-75% %. Hyperdynamic left ventricle No echocardiographic sign of RV collapse Small to moderate size pericardial effusion No echocardiographic signs of cardiac tamponade noted Large pleural effusion noted In comparison to previous echocardiogram small to moderate size pericardial eff usion. Ordering Physician: Les Toro Referring Physician: Av Barros MD Performed By: [place] [place] RVT and Student
[2023-02-05] MEDS: HYDROmorphone 1 MG/ML Syringe IV (17:34)
--- NOTE | 2023-02-05 17:56 | PCM.HP.STD ---
HPI - General General Date of Admission: 02/05/23 Date of Service: 02/05/23 Chief Complaint: Weakness HPI Narrative BASILIO GOSS, is a 52 M who presents with weakness. Patient has a stage IV lung cancer and has been getting around slowly with a walker but yesterday was noted to be more lethargic and weaker. He did sleep well overnight, according to his , however, he was weaker today. Went to radiation treatment today and looked unwell and was sent over to the emergency room. Patient was noted to be hypotensive and did receive IV fluids. Patient's blood pressure was 79/58. Patient had a CAT scan of his chest that showed pleural effusion. Echo also showed pericardial effusion but without tamponade. The ER physician spoke with cardiology and did not feel the patient had any tamponade. Patient was subsequently admitted to the floor. Patient is lethargic after pain medications and having pain. Much of the history is obtained through the emergency room physician as well as at bedside. 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 Nausea Rapid weight loss Regional lymph node metastasis present Shortness of breath on exertion Stomatitis Home Medications folic acid 1 mg tablet 1 mg PO DAILY supplement 01/20/23 [History Last Taken 01/28/23] lactulose 20 gram/30 mL oral solution 20 g (30 mL) PO BID #1,200 mL 01/22/23 [Rx Last Taken 01/29/23] pantoprazole 40 mg tablet,delayed release (Protonix) 40 mg PO DAILY #30 tabs 01/22/23 [Rx Last Taken 01/28/23] hydromorphone 2 mg tablet (Dilaudid) 2 - 4 mg PO Q4H PRN PAIN 01/29/23 [History Last Taken 01/29/23 07:30] fentanyl 50 mcg/hr transdermal patch 50 mcg transdermal Q3D #0 ea 01/31/23 [Rx Last Taken 02/02/23] haloperidol 1 mg tablet 1 mg PO TID PRN nausea and vomiting #0 tabs 01/31/23 [Rx Last Taken Unknown] hydromorphone 2 mg tablet 2 - 4 mg (1 - 2 x 2 mg) PO Q4H PRN PAIN #0 tabs 01/31/23 [Rx Last Taken Unknown] polyethylene glycol 3350 17 gram oral powder packet 17 g PO BID #0 ea 01/31/23 [Rx Last Taken 02/03/23] sennosides 8.6 mg capsule (senna) 8.6 mg PO BID #1 cap 01/31/23 [Rx Last Taken Unknown] ondansetron 8 mg disintegrating tablet 8 mg PO Q8H nausea #30 tabs 02/03/23 [Rx Last Taken Unknown] Allergy/AdvReac Type Severity Reaction Status Date / Time No Known Allergies Allergy Verified 02/05/23 10:57 Family History Aunt Cancer paternal - unknown type Sister Lymphoma T-cell Non Hodgkin's Social History household members: spouse Smoking Status: Former smoker Tobacco: How many years used: 8 how long ago did patient quit smoking: quit 30 years ago ROS ROS Narrative Pain, constipation, abdominal pain, back pain, shortness of breath, lower extremity edema. All review of systems were negative except as mentioned above in the history of present illness and the other review of systems. Vital Signs Vital Signs Vital Signs: 02/05/23 10:53 02/05/23 11:21 02/05/23 11:21 Temperature 37.0 C Temperature Source Temporal Pulse Rate 142 H Respiratory Rate 18 23 H Respiratory Effort Short of Breath Labored Respiratory Pattern Tachypnea Blood Pressure 168/66 H 79/58 L Blood Pressure Mean 100 65 Blood Pressure Source Blood Pressure Position Blood Pressure Location Pulse Ox 98 99 Oxygen Delivery Method Nasal Cannula Oxygen Flow Rate (L/min) 6 02/05/23 11:52 02/05/23 12:16 02/05/23 12:31 Temperature Temperature Source Pulse Rate 136 H Respiratory Rate 22 H Respiratory Effort Respiratory Pattern Blood Pressure 77/63 L 79/64 L Blood Pressure Mean 67 69 Blood Pressure Source Blood Pressure Position Blood Pressure Location Pulse Ox 100 99 Oxygen Delivery Method Nasal Cannula Nasal Cannula Oxygen Flow Rate (L/min) 6 5 02/05/23 13:24 02/05/23 16:13 02/05/23 16:17 Temperature Temperature Source Pulse Rate 129 H 130 H 129 H Respiratory Rate 22 H 24 H 21 H Respiratory Effort Respiratory Pattern Blood Pressure 84/64 L 88/72 L 100/68 Blood Pressure Mean 70 77 78 Blood Pressure Source Blood Pressure Position Blood Pressure Location Pulse Ox 98 97 98 Oxygen Delivery Method Nasal Cannula Nasal Cannula Nasal Cannula Oxygen Flow Rate (L/min) 5 5 5 02/05/23 16:49 02/05/23 17:47 Temperature 36.4 C L 37.5 C H Temperature Source Temporal Oral Pulse Rate 130 H 133 H Respiratory Rate 21 H 18 Respiratory Effort Respiratory Pattern Blood Pressure 94/70 89/43 L Blood Pressure Mean 78 58 Blood Pressure Source Monitor Blood Pressure Position Supine Blood Pressure Location Left Arm Pulse Ox 97 94 Oxygen Delivery Method Nasal Cannula Nasal Cannula Oxygen Flow Rate (L/min) 5 5 Weight Weight: 91.5 kg Body Mass Index (BMI) 28.1 Physical Exam Const Constitutional Narrative: Listless. Afebrile. HEENT normocephalic and head/scalp atraumatic Neck no lymphadenopathy and supple Resp normal respiratory effort and no retractions Cardio Cardio Narrative: Tachycardic but regular. GI normal to inspection, nondistended, normoactive bowel sounds, soft to palpation, non-tender and non-distended Extremity Extremity Narrative: Lower extremity edema particular in the feet. Skin Skin Narrative: No rashes or sores. Neuro Sensorium / Orientation: awake Psych Psych Narrative: Flat affect Results Lab / Micro Data Attestation: I reviewed the patient's lab results. 02/05/23 11:17 02/05/23 11:17 Labs: Laboratory Results - last 24 hr 02/05/23 11:17: WBC 14.1 H, RBC 3.14 L, Hgb 8.9 L, Hct 28.5 L, MCV 90.8, MCH 28.3, MCHC 31.2 L, RDW Std Deviation 54.9 H, RDW Coeff of Angelica 17.4 H, Plt Count 168, MPV 9.4, Neut % (Auto) Not Reportable, Absolute Neuts (auto) 10.4 H, Absolute Lymphs (auto) 0.84, Total Counted 100, Neutrophils % (Manual) 70, Band Neutrophils % 4, Lymphocytes % (Manual) 6 L, Monocytes % (Manual) 12 H, Eosinophils % (Manual) 4, Metamyelocytes % 4 H, Diff Path Review November, PT 14.6, INR 1.1, APTT 48.4 H, Sodium 128 L, Potassium 5.4 H, Chloride 93 L, Carbon Dioxide 31.0, Anion Gap 4 L, BUN 38 H, Creatinine 1.41 H, Estim Creat Clear Calc 66.01, Est GFR (MDRD) Af Amer 68, Est GFR (MDRD) Non-Af 56 L, BUN/Creatinine Ratio 27.0 H, Glucose 90, Lactic Acid 1.4, Calcium 12.3 H, Total Bilirubin 0.60, AST 257 H, ALT 32, Alkaline Phosphatase 320 H, Troponin I High Sens < 3 L, Total Protein 6.6, Albumin 1.6 L, Globulin 5.0 H, Albumin/Globulin Ratio 0.3 L ABG Data ABG results: ABG 02/05/23 12:19 Specimen Type ART Sample Site L Brach pH 7.44 Bicarbonate Actual 32.6 H Total CO2 34 Base Excess 8 H O2 Saturation 98 ABG pCO2 47.9 H ABG pO2 102 H O2 Delivery Device Cannula Liter Flow 6.0 Rhythm Strip Rhythm Strip: Sinus Tach Rate: 140 Ectopy: None Radiology Impression Chest X-Ray 02/05/23 11:29 IMPRESSION: Persistent opacification of the left hemithorax suggests a very large left pleural effusion with underlying compressive atelectasis. Increased markings in the right upper lobe. Electronically Signed: Mazin Garber MD at 12:14 EDT , Chest CT 02/05/23 12:16 IMPRESSION: Soft tissue mass in the left perihilar region and left upper lobe with almost complete collapse of the left lung with a moderate sized left pleural effusion. Small right pleural effusion with right basilar atelectasis. Shift of the heart and mediastinum towards the left side of midline. Bilateral adrenal masses. Electronically Signed: Mazin Garber MD at 13:02 EDT , Echocardiogram 02/05/23 14:38 Interpretation Summary The estimated ejection fraction is 70-75% %. Hyperdynamic left ventricle No echocardiographic sign of RV collapse Small to moderate size pericardial effusion No echocardiographic signs of cardiac tamponade noted Large pleural effusion noted In comparison to previous echocardiogram small to moderate size pericardial effusion. Ordering Physician: Les Toro Referring Physician: Av Barros MD Performed By: Hoa Bar RVT and Student Assessment & Plan Assessment/Plan (1) Pleural effusion, left: PLAN: We will plan for left-sided paracentesis the . Unclear how much that is contributing to his hemodynamic issues. Did discuss with Dr. Montes, who about the possibility that it could reaccumulate rapidly (2) Pneumonia: QUALIFIERS: Pneumonia type: due to unspecified organism Laterality: left Lung location: unspecified part of lung Qualified Code(s): J18.9 - Pneumonia, unspecified organism PLAN: May be postobstructive Continue with PIP Tazo Consult pulmonary. Discussed with Dr. Mixon (3) Hyperkalemia: PLAN: Unclear significance IV fluids Monitor (4) MANSOOR (acute kidney injury): PLAN: May be prerenal IV fluids (5) Hypercalcemia: PLAN: Secondary to malignancy IV fluids at this time. (6) Adenocarcinoma of lung, stage 4: QUALIFIERS: Laterality: left Qualified Code(s): C34.92 - Malignant neoplasm of unspecified part of left bronchus or lung PLAN: Has only undergone 1 chemotherapy. Does have a port in place Discussed with Dr. Montes about continuing his radiation treatment. PLAN: Plan VTE prophylaxis with SCD Prognosis: Poor CODE STATUS: Addressed with the patient and his . He is noncommittal at this time and the has not formally asked him himself. Told him that we will leave him at full code at this time but they can change her mind at any point. Charges/Coding Visit Charges Inpatient E&M: 54385 Init Hosp L3
[2023-02-05] MEDS: 0.9% Normal Saline 1,000 ML 200 ML IV (19:07)
--- NOTE | 2023-02-05 20:00 | PCM.HOSP.N ---
Hospitalist Note Patient with increased fatigue and lethargy, still tachycardic after notable fluids. Patient with metastatic cancer with soft tissue mass in the left perihilar region and left upper lobe with almost complete collapse of the left lung with a moderate sized left pleural effusion, small right pleural effusion with right basilar atelectasis, shift of the heart and mediastinum towards the left side of midline, bilateral adrenal masses. Will obtain ABG, will request BIPAP, will add IV vanc and request MRSA screen with de-escalation if negative given recent serial admissions, given fever will transition to SD tylenol and will further evaluation. If he worsens will transition patient to ICU status. From admission note still a Full Code but possibly reticent to transition.
[2023-02-05 20:36] LABS: Allen Test Positive; Base Excess 7 mmol/L (-2 to +2); Bicarbonate 27.8 mmol/L (22-26); Blood Gas Specimen Type ART; O2 Delivery Device Cannula; PO2 85 mmHG (75-100); SITE R Radial; SO2 98 % (95-99); Total Carbon Dioxide 29 mmol/L; pCO2 27.5 mmHg (35-45); pH 7.61 (7.35-7.45)
[2023-02-05] MEDS: Acetaminophen 650 MG Suppository RC (20:37)
--- NOTE | 2023-02-05 22:09 | CPS ---
CRITICAL ABG VALUES, DR. COLEMAN AWARE. NOT ENOUGH BLOOD FOR RE-RUN.
[2023-02-05 22:21] LABS: M R Staph aureus DNA By PCR Negative (Negative); Probe Check PASS; Specimen Processing Control PASS
--- NOTE | 2023-02-05 22:39 | NURSING ---
report given to [facility].
[2023-02-05 23:39] LABS: Mucous, Urine 0 SEEN /hpf (<or=2+)
[2023-02-05 23:44] LABS: Color, Urine Yellow (Yellow); Glucose, Dipstick Normal (Normal); Ketone-Dipstick 5 mg/dl (Negative); Leukocyte Esterase-Dipstick 25 /ul (Negative); Nitrite-Dipstick Negative (Negative); Occult Blood-Urine 25 /ul (Negative); Protein-Dipstick 100 mg/dl (Negative); Specific Gravity, Urine 1.025 (1.002-1.030); Urine Bilirubin Dipstick 1 mg/dL (Negative); Urine Clarity Sl. Cloudy (Clear); Urine Urobilinogen 1 mg/dl (Normal)
[2023-02-06] VITALS (23 sets, daily range): BP systolic 77–119; BP diastolic 58–87; PULSE 100–144; RESP 12–31; TEMP 38.2–38.9; O2SAT 94–100
[2023-02-06 00:01] LABS: Amorphous Sediment 2+; Bacteria 3+ /hpf (None Seen); Calcium Oxalate Crystals Ur RARE /hpf (<or=2+); Fine Granular Cast- Urine 0-5 SEEN /lpf (0-5); Hyaline Cast 0-5 SEEN /lpf (0-5); Red Blood Cells-Urine 0-5 SEEN /hpf (0-5); Squamous Epithelial Cells - UA 0-5 SEEN /hpf (0-5); White Blood Cells 0-5 SEEN /hpf (0-5)
--- NOTE | 2023-02-06 00:17 | PCM.RX.CS ---
Consult Antibiotic Management Pharmacy has been consulted to manage selected antiobiotic: Vancomycin Type of Intervention Type of Consult: New start Suspected Infection Suspected Infection: Sepsis Labs Labs: Sodium 128 mmol/L (136-145) L 02/05/23 11:17 Potassium 5.4 mmol/L (3.5-5.1) H 02/05/23 11:17 Chloride 93 mmol/L (98-107) L 02/05/23 11:17 Carbon Dioxide 31.0 mmol/L (21.0-32.0) 02/05/23 11:17 Anion Gap 4 (5-15) L 02/05/23 11:17 BUN 38 mg/dL (7-18) H 02/05/23 11:17 Creatinine 1.41 mg/dL (0.70-1.30) H 02/05/23 11:17 Est GFR (MDRD) Af Amer 68 mL/min (>60) 02/05/23 11:17 Est GFR (MDRD) Non-Af 56 mL/min (>60) L 02/05/23 11:17 BUN/Creatinine Ratio 27.0 RATIO (10-20) H 02/05/23 11:17 Glucose 90 mg/dL (74-106) 02/05/23 11:17 Dosing Weight Weight used for dosin.5 kg Estimated Creatinine Clearance Estimated Creatinine Clearance: 71.5 Goal Trough Goal Trough: 15-20 mcg/mL Pharmacy Plan for Drug Dosing Pharmacy Plan for Drug Dosing: Pharmacy Service will continue to monitor and adjust dosing as required. Follow-Up Labs Follow-Up Labs: Trough: Vancomycin Date/Time Labs Ordered Labs to be done on [date and time ordered]: 02/07 @ 1372
[2023-02-06 08:08] LABS: Hematocrit 23.6 % (40-54); Hemoglobin 7.2 g/dL (13.0-16.5); Mean Corp Hgb Conc 30.5 g/dL (32-36); Mean Corpuscular Hgb 28.3 pg (27.0-32.0); Mean Corpuscular Volume 92.9 fL (80-94); POSITIVE COUNT YES; POSITIVE DIFFERENTIAL YES; POSITIVE MORPHOLOGY YES; Platelet Count 123 K/mm3 (150-450); RBC Distribution Width CV 17.7 % (11.6-14.6); RBC Distribution Width SD 58.3 fl (35.1-43.9); Red Blood Count 2.54 M/mm3 (4.6-6.2); White Blood Count 11.3 K/mm3 (4.4-11.0)
--- NOTE | 2023-02-06 08:08 | PCM.PN.HOSP ---
Reason for Visit Reason for Visit: Diagnoses Malignant neoplasm of unspecified part of left bronchus or lung (02/05/23) Hypercalcemia (02/05/23) Hyperkalemia (02/05/23) Pneumonia, unspecified organism (02/05/23) Pleural effusion, not elsewhere classified (02/05/23) Acute kidney failure, unspecified (02/05/23) Subjective Subjective Increased lethargy overnight. Transferred to ICU. Started on dexmedetomidine gtt and vancomycin. Complains of pain and shortness of breath. Objective Data Objective Data Vital Signs: Vital Signs Temp Pulse Resp BP Pulse Ox O2 Del Method O2 Flow Rate 38.3 C H 102 H 22 H 98/65 95 Bi-pap 5 02/06/23 07:00 02/06/23 07:22 02/06/23 07:22 02/06/23 07:00 02/06/23 07:22 02/06/23 07:22 02/05/23 22:32 FiO2 30 02/06/23 07:22 Oxygen Flow Rate (L/min) 5 Oxygen Delivery Method Bi-pap Weight: 91.5 kg Body Mass Index (BMI) 28.1 Intake & Output: Intake and Output for Last 24 Hours 02/04/23 02/05/23 02/06/23 23:59 23:59 23:59 Intake Total 2626.67 / 3166.67 1227.04 / 1227.04 Output Total 875 / 875 Balance 2626.67 / 2541.67 352.04 / 352.04 Lab / Micro Data 02/06/23 08:00 02/06/23 08:00 Labs: Laboratory Results - last 24 hr 02/05/23 11:17: WBC 14.1 H, RBC 3.14 L, Hgb 8.9 L, Hct 28.5 L, MCV 90.8, MCH 28.3, MCHC 31.2 L, RDW Std Deviation 54.9 H, RDW Coeff of Angelica 17.4 H, Plt Count 168, MPV 9.4, Neut % (Auto) Not Reportable, Absolute Neuts (auto) 10.4 H, Absolute Lymphs (auto) 0.84, Total Counted 100, Neutrophils % (Manual) 70, Band Neutrophils % 4, Lymphocytes % (Manual) 6 L, Monocytes % (Manual) 12 H, Eosinophils % (Manual) 4, Metamyelocytes % 4 H, Diff Path Review November, PT 14.6, INR 1.1, APTT 48.4 H, Sodium 128 L, Potassium 5.4 H, Chloride 93 L, Carbon Dioxide 31.0, Anion Gap 4 L, BUN 38 H, Creatinine 1.41 H, Estim Creat Clear Calc 66.01, Est GFR (MDRD) Af Amer 68, Est GFR (MDRD) Non-Af 56 L, BUN/Creatinine Ratio 27.0 H, Glucose 90, Lactic Acid 1.4, Calcium 12.3 H, Total Bilirubin 0.60, AST 257 H, ALT 32, Alkaline Phosphatase 320 H, Troponin I High Sens < 3 L, Total Protein 6.6, Albumin 1.6 L, Globulin 5.0 H, Albumin/Globulin Ratio 0.3 L 02/05/23 20:31: MRSA (PCR) Negative 02/05/23 23:35: Urine Color Yellow, Urine Clarity Sl. Cloudy, Urine pH 5.0, Ur Specific [place] 1.025, Urine Protein 100 H, Urine Glucose (UA) Normal, Urine Ketones 5 H, Urine Occult Blood 25 H, Urine Nitrite Negative, Urine Bilirubin 1 H, Urine Urobilinogen 1 H, Ur Leukocyte Esterase 25 H, Urine RBC 0-5 SEEN, Urine WBC 0-5 SEEN, Ur Squamous Epith Cells 0-5 SEEN, Calcium Oxalate Crystal RARE, Amorphous Sediment 2+, Urine Bacteria 3+, Hyaline Casts 0-5 SEEN, Fine Granular Casts 0-5 SEEN, Urine Mucus 0 SEEN 02/05/23 23:47: Ammonia 11.0 ABG Data ABG results: ABG 02/05/23 02/05/23 12:19 20:31 Specimen Type ART ART Sample Site L Brach R Radial pH 7.44 7.61 H* Bicarbonate Actual 32.6 H 27.8 H Total CO2 34 29 Base Excess 8 H 7 H O2 Saturation 98 98 ABG pCO2 47.9 H 27.5 L ABG pO2 102 H 85 Yosef Test Positive O2 Delivery Device Cannula Cannula Liter Flow 6.0 2.0 Crit Call To/Read Back Yes Radiography Diagnostic Testing: Radiology Impression Chest X-Ray 02/05/23 11:29 IMPRESSION: Persistent opacification of the left hemithorax suggests a very large left pleural effusion with underlying compressive atelectasis. Increased markings in the right upper lobe. Electronically Signed: Mazin Garber MD at 12:14 EDT , Chest CT 02/05/23 12:16 IMPRESSION: Soft tissue mass in the left perihilar region and left upper lobe with almost complete collapse of the left lung with a moderate sized left pleural effusion. Small right pleural effusion with right basilar atelectasis. Shift of the heart and mediastinum towards the left side of midline. Bilateral adrenal masses. Electronically Signed: Mazin Garber MD at 13:02 EDT , Echocardiogram 02/05/23 14:38 Interpretation Summary The estimated ejection fraction is 70-75% %. Hyperdynamic left ventricle No echocardiographic sign of RV collapse Small to moderate size pericardial effusion No echocardiographic signs of cardiac tamponade noted Large pleural effusion noted In comparison to previous echocardiogram small to moderate size pericardial effusion. Ordering Physician: Les Toro Referring Physician: Av Barros MD Performed By: Hoa Bar RVT and Student Rhythm Strip Rhythm Strip: Sinus Tach Rate: 140 Ectopy: None Physical Exam Const Constitutional Narrative: listless but alert. no respiratory distress. uncomfortable. Resp Resp Narrative: coarse BS bilaterally. Cardio Cardio Narrative: tachycardic. regular. GI GI Narrative: distended. non tender. Extremity General Extremity: edema Assessment & Plan Assessment/Plan (1) Pleural effusion, left: PLAN: Thoracentesis on hold given hospice consult. Unclear how much that is contributing to his hemodynamic issues. Did discuss with Dr. Montes, who about the possibility that it could reaccumulate rapidly (2) Pneumonia: QUALIFIERS: Laterality: left Lung location: unspecified part of lung Pneumonia type: due to unspecified organism Qualified Code(s): J18.9 - Pneumonia, unspecified organism PLAN: May be postobstructive Continue with PIP Tazo Consult pulmonary. Discussed with Dr. Mixon (3) Hyperkalemia: PLAN: Unclear significance IV fluids Monitor (4) MANSOOR (acute kidney injury): PLAN: worsening despite IVF (5) Hypercalcemia: PLAN: Ongoing despite IVF Secondary to malignancy (6) Adenocarcinoma of lung, stage 4: QUALIFIERS: Laterality: left Qualified Code(s): C34.92 - Malignant neoplasm of unspecified part of left bronchus or lung PLAN: Has only undergone 1 chemotherapy. Does have a port in place Discussed with Dr. Montes given deteriorating status. Plan to hold on XRT at this time. Dr. Montes spoke with family today and said they ok with hospice consult, but unsure if they will proceed with hospice care. Given dramatically deteriorating state, not a candidate for chemotherapy. PLAN: Plan VTE prophylaxis with SCD Prognosis: Poor CODE STATUS: Addressed with the patient and his . He is noncommittal at this time and the has not formally asked him himself. Told him that we will leave him at full code at this time but they can change her mind at any point. DW and other family members at bedside today. Encouraged symptom control. Charges/Coding Visit Charges Inpatient E&M: 78205 Subs Hosp L2
--- NOTE | 2023-02-06 08:10 | EX.PCM.CONCC ---
Assessment & Plan Assessment/Plan (1) Encephalopathy: (2) Pleural effusion, left: (3) Acute on chronic respiratory failure with hypoxia: PLAN: Plan RECOMMENDATIONS: 1. Continue current supportive measures including supplemental oxygen for saturations greater than 90%. 2. Continue empiric antimicrobials for now. 3. Await decision from family/patient regarding future goals of care. 4. Gentle IV fluid hydration as tolerated. IMPRESSIONS: 1. Acute on chronic respiratory failure with hypoxemia The patient has underlying stage IV non-small cell lung cancer with bulky mediastinal disease, which has largely failed to respond to radiation therapy. He continues to have extrinsic compression of the left tracheobronchial tree leading to collapse. He has an exceedingly poor performance status and is therefore not a candidate for systemic chemotherapy. Any additional radiation treatments are likely futile. I do suspect that the patient's underlying pleural effusion is likely related to his malignancy. Although a thoracentesis can be performed, this would only provide temporary relief. The patient has an incurable disease and we are at the point now that I believe he would benefit from inpatient hospice care services. I had a discussion with the patient and his this morning at the bedside regarding these recommendations. The case was also discussed with radiation oncology, who was in agreement. In addition, the patient likely has a component of postobstructive pneumonia, for which antimicrobials will be continued. Overall prognosis is poor. 2. Acute kidney injury/hyperkalemia Most likely prerenal in etiology. Continue gentle IV fluid hydration as tolerated. This note was generated with [employer] dictation software. It may contain incorrect words, spelling, and punctuation that were not noted in checking the note before signing. HPI Consult Data Date of Consult: 02/07/23 HPI Narrative Reason for Consultation: Respiratory failure HPI Narrative: The patient is a 52-year-old male, with a history as outlined below, who presented to the emergency department on February 05 with fever, generalized weakness and shortness of breath. The patient is currently followed by Dr. Bee of pulmonary medicine after being evaluated in October 2022 with a left hilar lung mass and an adrenal mass, which was subsequently biopsied. Pathology from the adrenal mass was consistent with adenocarcinoma of lung primary. The patient was last seen in the pulmonary medicine clinic on February 04, 2023, at which time, the patient was noted to have a 7 L/min continuous supplemental oxygen requirement. The patient is status post systemic chemotherapy x1 in December 2022 and has completed 7 out of 10 radiation treatments. On presentation to the emergency department, the patient was initially documented to be afebrile but was tachycardic and tachypneic. Initial laboratory evaluation revealed a white blood cell count of 14,000. His initial arterial blood gas on 6 L/min via nasal cannula demonstrated a pH of 7.4 with a PCO2 of 48 and PO2 of 102. Chemistry profile was notable for a sodium of 128, potassium of 5.4, chloride of 93 and creatinine of 1.4. Troponin was negative. Lactate was within normal limits. Urinalysis was positive for leukocyte esterase and 3+ urine bacteria. Blood and urine cultures were collected. CT chest demonstrated the continued presence of a left perihilar lung mass along with a moderate-sized pleural effusion. A moderate-sized pericardial effusion was also noted. A stat echocardiogram was obtained which demonstrated a small pericardial effusion without any signs of tamponade. The patient was placed on antimicrobials and admitted to the progressive care unit. Overnight, the patient was noted to have worsening lethargy and tachycardia. In addition, the patient became febrile overnight with a Tmax of 101.2 ?F. He was ultimately transferred to the medical intensive care unit after being placed on BiPAP therapy. 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 Nausea Rapid weight loss Regional lymph node metastasis present Shortness of breath on exertion Stomatitis Home Medications fentanyl 50 mcg/hr transdermal patch 50 mcg transdermal Q3D #0 ea 01/31/23 [Rx Last Taken 02/02/23] haloperidol 1 mg tablet 1 mg PO TID PRN nausea and vomiting #0 tabs 01/31/23 [Rx Last Taken Unknown] hydromorphone 2 mg tablet 2 - 4 mg (1 - 2 x 2 mg) PO Q4H PRN PAIN #0 tabs 01/31/23 [Rx Last Taken Unknown] sennosides 8.6 mg capsule (senna) 8.6 mg PO BID #1 cap 01/31/23 [Rx Last Taken Unknown] ondansetron 8 mg disintegrating tablet 8 mg PO Q8H nausea #30 tabs 02/03/23 [Rx Last Taken Unknown] Allergy/AdvReac Type Severity Reaction Status Date / Time No Known Allergies Allergy Verified 02/05/23 10:57 Family History Aunt Cancer paternal - unknown type Sister Lymphoma T-cell Non Hodgkin's Social History household members: spouse Smoking Status: Former smoker Tobacco: How many years used: 8 how long ago did patient quit smoking: quit 30 years ago ROS ROS Narrative 10 systems were reviewed with pertinent positives as noted in the HPI above. Physical Exam Const Constitutional Narrative: Lethargic and ill in appearance. is present at the bedside. HEENT normocephalic and head/scalp atraumatic Eyes PERRL and EOMs intact bilaterally Neck supple General: trachea midline Chest inspection of chest normal Chest Narrative: Stable chest port in place. Resp Effort and Inspection: tachypneic and labored Auscultation: diminished lung sounds Cardio S1 normal heart sound and S2 normal heart sound Rate: tachycardic GI normal to inspection, nondistended, normoactive bowel sounds Extremity no clubbing, cyanosis or edema Skin no rashes or lesions noted Neuro no focal motor deficits Psych Mood & Affect: flat affect Lab / Micro Data 02/06/23 08:00 02/06/23 08:00 Labs: Laboratory Results - last 24 hr 02/05/23 11:17: WBC 14.1 H, RBC 3.14 L, Hgb 8.9 L, Hct 28.5 L, MCV 90.8, MCH 28.3, MCHC 31.2 L, RDW Std Deviation 54.9 H, RDW Coeff of Angelica 17.4 H, Plt Count 168, MPV 9.4, Neut % (Auto) Not Reportable, Absolute Neuts (auto) 10.4 H, Absolute Lymphs (auto) 0.84, Total Counted 100, Neutrophils % (Manual) 70, Band Neutrophils % 4, Lymphocytes % (Manual) 6 L, Monocytes % (Manual) 12 H, Eosinophils % (Manual) 4, Metamyelocytes % 4 H, Diff Path Review November, PT 14.6, INR 1.1, APTT 48.4 H, Sodium 128 L, Potassium 5.4 H, Chloride 93 L, Carbon Dioxide 31.0, Anion Gap 4 L, BUN 38 H, Creatinine 1.41 H, Estim Creat Clear Calc 66.01, Est GFR (MDRD) Af Amer 68, Est GFR (MDRD) Non-Af 56 L, BUN/Creatinine Ratio 27.0 H, Glucose 90, Lactic Acid 1.4, Calcium 12.3 H, Total Bilirubin 0.60, AST 257 H, ALT 32, Alkaline Phosphatase 320 H, Troponin I High Sens < 3 L, Total Protein 6.6, Albumin 1.6 L, Globulin 5.0 H, Albumin/Globulin Ratio 0.3 L 02/05/23 20:31: MRSA (PCR) Negative 02/05/23 23:35: Urine Color Yellow, Urine Clarity Sl. Cloudy, Urine pH 5.0, Ur Specific [place] 1.025, Urine Protein 100 H, Urine Glucose (UA) Normal, Urine Ketones 5 H, Urine Occult Blood 25 H, Urine Nitrite Negative, Urine Bilirubin 1 H, Urine Urobilinogen 1 H, Ur Leukocyte Esterase 25 H, Urine RBC 0-5 SEEN, Urine WBC 0-5 SEEN, Ur Squamous Epith Cells 0-5 SEEN, Calcium Oxalate Crystal RARE, Amorphous Sediment 2+, Urine Bacteria 3+, Hyaline Casts 0-5 SEEN, Fine Granular Casts 0-5 SEEN, Urine Mucus 0 SEEN 02/05/23 23:47: Ammonia 11.0 ABG Data ABG results: ABG 02/05/23 02/05/23 12:19 20:31 Specimen Type ART ART Sample Site L Brach R Radial pH 7.44 7.61 H* Bicarbonate Actual 32.6 H 27.8 H Total CO2 34 29 Base Excess 8 H 7 H O2 Saturation 98 98 ABG pCO2 47.9 H 27.5 L ABG pO2 102 H 85 Yosef Test Positive O2 Delivery Device Cannula Cannula Liter Flow 6.0 2.0 Crit Call To/Read Back Yes Rhythm Strip Rhythm Strip: Sinus Tach Rate: 140 Ectopy: None Radiology Impression Chest X-Ray 02/05/23 11:29 IMPRESSION: Persistent opacification of the left hemithorax suggests a very large left pleural effusion with underlying compressive atelectasis. Increased markings in the right upper lobe. Electronically Signed: Mazin Garber MD at 12:14 EDT , Chest CT 02/05/23 12:16 IMPRESSION: Soft tissue mass in the left perihilar region and left upper lobe with almost complete collapse of the left lung with a moderate sized left pleural effusion. Small right pleural effusion with right basilar atelectasis. Shift of the heart and mediastinum towards the left side of midline. Bilateral adrenal masses. Electronically Signed: Mazin Garber MD at 13:02 EDT , Echocardiogram 02/05/23 14:38 Interpretation Summary The estimated ejection fraction is 70-75% %. Hyperdynamic left ventricle No echocardiographic sign of RV collapse Small to moderate size pericardial effusion No echocardiographic signs of cardiac tamponade noted Large pleural effusion noted In comparison to previous echocardiogram small to moderate size pericardial effusion. Ordering Physician: Les Toro Referring Physician: Av Barros MD Performed By: Hoa Bar RVT and Student Charges/Coding Visit Charges Inpatient E&M: 35462 Init Hosp L3
[2023-02-06 08:11] LABS: Differential Indicated MANUAL DIFF
[2023-02-06 08:24] LABS: Anion Gap 4 (5-15); BUN 45 mg/dL (7-18); BUN/Creat Ratio 23.7 RATIO (10-20); Calcium,Total 12.3 mg/dL (8.5-10.1); Chloride 99 mmol/L (98-107); EST Glomerular Filtration Rate 40 mL/min (>60); Est Glom Filt Rate - Afr Amer 48 mL/min (>60); Estimated Creatinine Clearance 48.99 ml/min; Glucose 83 mg/dL (74-106); Potassium 5.6 mmol/L (3.5-5.1); Sodium Level 133 mmol/L (136-145)
[2023-02-06 09:14] LABS: Eosinophil 2 % (0-5); Lymphocyte 5 % (19-41); Metamyelocyte 6 % (0-1); Monocyte 14 % (0-10); Myelocyte 1 % (0-0); Neutrophil-Band 3 % (0-5); Neutrophil-Segmented 68 % (47-70); Platelet Estimate SLT DEC (ADEQ); Promyelocyte 1 % (0-0); Red Cell Morphology NORM C+C NORMAL (NORM C&C); Total Cells Counted 100 (MANUAL DIFF)
[2023-02-06 10:06] LABS: International Normalized Ratio 1.3; Prothrombin Time (Protime)PT. 16.5 SECONDS (11.7-14.9)
[2023-02-06 10:19] LABS: Pathologist Review Reviewed
[2023-02-06 10:55] LABS: Pathologist Review Reviewed
--- NOTE | 2023-02-06 13:06 | CHAPLAIN ---
Type of Pastoral Visit _x_ Initial Visit ___ Follow-up Visit ___ On-call Visit ___ General Patient Visit ___ Spiritual Assessment ___ Family Conference ___ Bereavement ___ Rapid Response ___ Code Blue ___ Other (describe below) Pastoral Care Referral From _x__ Patient _x__ Family _x__ Nurse ___ Physician ___ Bowling Ball Assembler ___ Marine Cargo Specialist ___ Other (describe below) Sacrament/Intervention _x__ Active listening ___ Anointing ___ Moravian ___ Bereavement ___ Communion _x__ Tarsha exploration ___ ___ Life review _x__ Prayer ___ Reconciliation ___ Sacrament of Sick _x__ Supportive presence ___ Wedding ___ Other (describe below) Pastoral Comments patient is awake but communicates in whispers, many of which are undetectable; many family members are in the room as is the quality assurance supervisor of the patient; much support given to patient; this vice president of software engineering remembers patient from admission just in last month; pt is person of tarsha in God and is affirmed today by quality assurance supervisor; offer of support to family and request to pray for the patient is given by patient; family gathers around the bed to touch pt and listen to prayer; ongoing support available to patient and family
[2023-02-06] MEDS: Acetaminophen 650 MG Suppository RC ×2 (13:32→17:18)
--- NOTE | 2023-02-06 15:14 | CON.PCM.ON_ITS ---
Assessment & Plan Assessment/Plan (1) Adenocarcinoma of lung, stage 4: Status: Acute Code(s): C34.90 - Malignant neoplasm of unspecified part of unspecified bronchus or lung Qualifiers: Laterality: left Qualified Code(s): C34.92 - Malignant neoplasm of unspecified part of left bronchus or lung (2) Pleural effusion, left: Status: Acute Code(s): J90 - Pleural effusion, not elsewhere classified (3) Hypercalcemia: Status: Acute Code(s): E83.52 - Hypercalcemia HPI Consult Data Date of Service:: 02/06/23 PCP / Referring Provider: Dr. Av Barros MD Attending: Dr. Av Izaguirre DO Chief Complaint Chief Complaint: met NSCLC History of Present Illness History of Present Illness: Mr. Nathaniel Montejo is a very pleasant 52-year-old gentleman with pathologically confirmed stage IV metastatic non-small cell lung cancer, adenocarcinoma. Primary tumor is in the left hilum with metastases into bilateral hilar lymph nodes including AP window, upper abdominal lymph nodes, bilateral adrenal glands and multiple bony metastases. Also, initial staging of the brain despite being asymptomatic revealed a 5 mm lesion in the right occipital lobe suspicious for metastasis. Upon presentation, experienced hoarseness most likely due to left laryngeal nerve involvement, weight loss and back pain. He began palliative chemotherapy on December 26, 2022 with carboplatin and pemetrexed. Port infected and removed, Patient requested to delay cycle 2 due to be given on 01/16/23 so that central line could be used vs. receiving peripherally. In the interim, he presented to [facility] ED with c/o worsening SOB and fever. A CT chest with contrast demonstrated the left upper lung/perihilar and superior mediastinal confluent mass measuring 13 x 12 cm increased in size from the prior study in November, this is replaced in the left upper lobe and in continuity with the left mediastinum slightly narrowing the aortic arch and obliterating the left upper lobe bronchus.? There is moderate layering left pleural effusion with compressive atelectasis of the left lower lobe.? There is medial right upper lobe and lateral right middle lobe centrilobular nodular airspace disease.? There is also interval enlargement of the bilateral adrenal masses and upper abdominal adenopathy. He was subsequently admitted for management of postobstructive pneumonia and progression of NSCLC. Began palliative radiation to left lung and T5-T7 under the care of Dr. Montes. Discharged home on Levaquin 01/22/23. Presented to [facility] ED again on 01/29/[address] Montes for evaluation of tachycardia and failure to thrive. A CXR showed complete white out of left side of chest. He was subsequently admitted. A CT of his abdomen pelvis without contrast obtained 01/29/23 showed no bowel obstruction abscess or free fluid, normal appendix, worsening bulky masses of the bilateral adrenal glands, significant retroperitoneal adenopathy, bony metastatic changes in the spine with pathologic fracture at L3 and extensive left lower lobe L airspace consolidation with a left effusion and a pericardial effusion. Echo 01/30/23 showed pericardial effusion was estimated as moderate, EF was 70% with no diastolic dysfunction. Discharged home 01/31/23 with antiemetics and narcotic regimen to be managed by palliative care. 02/05/23 presented to [facility] ED with c/o generalized weakness. He was found to be hypotensive with leukocytosis. Echo showed small-moderate pericardial effusion, unchanged from previous echo with no sign of tamponade. CT chest without contrast showed soft tissue mass in the left perihilar region and left upper lobe with almost complete collapse of the left lung with a moderate sized left pleural effusion, small right pleural effusion with right basilar atelectasis, shift of the heart and mediastinum towards the left side of midline, and bilateral adrenal masses. Initially admitted to PCU, later transitioned to ICU d/t pierce rgy and persistent tachycardia. Palliative radiation held today d/t rapidly deteriorating state. Advanced Directives Power of Therapeutic Recreation Director: No Living Will: No [facility] Medical History Acute on chronic respiratory failure with hypoxia Adenocarcinoma of lung, stage 4 Alcohol use Apnea, sleep Arthritis Asthma Back pain Benign skin mole Cancer of left lung Cancer related pain Chondrosternal sprain Chronic coughing CINV (chemotherapy-induced nausea and vomiting) Diastolic hypertension Encounter for education Fatty tumor Former smoker Herpes zoster Hiccups Hoarseness Hypercholesteremia Hyponatremia Hypoxia Keratosis pilaris Lipoma Low serum HDL Maculopapular rash 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 Nausea Rapid weight loss Regional lymph node metastasis present Shortness of breath on exertion Stomatitis Home Medications folic acid 1 mg tablet 1 mg PO DAILY supplement 01/20/23 [History Last Taken 01/28/23] lactulose 20 gram/30 mL oral solution 20 g (30 mL) PO BID #1,200 mL 01/22/23 [Rx Last Taken 01/29/23] pantoprazole 40 mg tablet,delayed release (Protonix) 40 mg PO DAILY #30 tabs 01/22/23 [Rx Last Taken 01/28/23] hydromorphone 2 mg tablet (Dilaudid) 2 - 4 mg PO Q4H PRN PAIN 01/29/23 [History Last Taken 01/29/23 07:30] fentanyl 50 mcg/hr transdermal patch 50 mcg transdermal Q3D #0 ea 01/31/23 [Rx Last Taken 02/02/23] haloperidol 1 mg tablet 1 mg PO TID PRN nausea and vomiting #0 tabs 01/31/23 [Rx Last Taken Unknown] hydromorphone 2 mg tablet 2 - 4 mg (1 - 2 x 2 mg) PO Q4H PRN PAIN #0 tabs 01/31/23 [Rx Last Taken Unknown] polyethylene glycol 3350 17 gram oral powder packet 17 g PO BID #0 ea 01/31/23 [Rx Last Taken 02/03/23] sennosides 8.6 mg capsule (senna) 8.6 mg PO BID #1 cap 01/31/23 [Rx Last Taken Unknown] ondansetron 8 mg disintegrating tablet 8 mg PO Q8H nausea #30 tabs 02/03/23 [Rx Last Taken Unknown] Allergy/AdvReac Type Severity Reaction Status Date / Time No Known Allergies Allergy Verified 02/05/23 10:57 Family History Aunt Cancer paternal - unknown type Sister Lymphoma T-cell Non Hodgkin's Social History household members: spouse Smoking Status: Former smoker Tobacco: How many years used: 8 how long ago did patient quit smoking: quit 30 years ago Vital Signs Temperature 101.7 F H 02/06/23 14:00 Temperature Source Core 02/06/23 14:00 Pulse Rate 137 H 02/06/23 14:00 Pulse Strength Weak (1+) 02/05/23 22:00 Respiratory Rate 29 H 02/06/23 14:00 Respiratory Effort Short of Breath 02/06/23 11:54 Respiratory Depth Deep 02/06/23 11:54 Respiratory Pattern Tachypnea 02/06/23 11:54 Blood Pressure 119/76 02/06/23 14:00 Blood Pressure Mean 90 02/06/23 14:00 Blood Pressure Source Monitor 02/06/23 14:00 Blood Pressure Position Semi-Fowlers 02/06/23 14:00 Blood Pressure Location Right Arm 02/06/23 14:00 Pulse Ox 100 02/06/23 14:00 Oxygen Delivery Method Nasal Cannula 02/06/23 14:00 Oxygen Flow Rate (L/min) 2 02/06/23 14:00 Fraction of Inspired Oxygen (FIO2) 30 02/06/23 07:22 Laboratory Results - last 24 hr 02/05/23 11:17: Diff Path Review Reviewed 02/05/23 20:31: MRSA (PCR) Negative 02/05/23 23:35: Urine Color Yellow, Urine Clarity Sl. Cloudy, Urine pH 5.0, Ur Specific [place] 1.025, Urine Protein 100 H, Urine Glucose (UA) Normal, Urine Ketones 5 H, Urine Occult Blood 25 H, Urine Nitrite Negative, Urine Bilirubin 1 H, Urine Urobilinogen 1 H, Ur Leukocyte Esterase 25 H, Urine RBC 0-5 SEEN, Urine WBC 0-5 SEEN, Ur Squamous Epith Cells 0-5 SEEN, Calcium Oxalate Crystal RARE, Amorphous Sediment 2+, Urine Bacteria 3+, Hyaline Casts 0-5 SEEN, Fine Granular Casts 0-5 SEEN, Urine Mucus 0 SEEN 02/05/23 23:47: Ammonia 11.0 02/06/23 08:00: WBC 11.3 H, RBC 2.54 L, Hgb 7.2 L, Hct 23.6 L, MCV 92.9, MCH 28.3, MCHC 30.5 L, RDW Std Deviation 58.3 H, RDW Coeff of Angelica 17.7 H, Plt Count 123 L, MPV 9.0, Neut % (Auto) Not Reportable, Absolute Neuts (auto) 8.0 H, Absolute Lymphs (auto) 0.60 L, Total Counted 100, Neutrophils % (Manual) 68, Band Neutrophils % 3, Lymphocytes % (Manual) 5 L, Monocytes % (Manual) 14 H, Eosinophils % (Manual) 2, Metamyelocytes % 6 H, Myelocytes % 1 H, Promyelocytes % 1 H, Diff Path Review Reviewed, Platelet Estimate SLT DEC, RBC Morphology NORM C+C, PT 16.5 H, INR 1.3, Sodium 133 L, Potassium 5.6 H, Chloride 99, Carbon Dioxide 30.0, Anion Gap 4 L, BUN 45 H, Creatinine 1.90 H, Estim Creat Clear Calc 48.99, Est GFR (MDRD) Af Amer 48 L, Est GFR (MDRD) Non-Af 40 L, BUN/Creatinine Ratio 23.7 H, Glucose 83, Calcium 12.3 H Diagnostic Data Chest X-Ray 02/05/23 11:29 IMPRESSION: Persistent opacification of the left hemithorax suggests a very large left pleural effusion with underlying compressive atelectasis. Increased markings in the right upper lobe. Electronically Signed: Mazin Garber MD at 12:14 EDT , Chest CT 02/05/23 12:16 IMPRESSION: Soft tissue mass in the left perihilar region and left upper lobe with almost complete collapse of the left lung with a moderate sized left pleural effusion. Small right pleural effusion with right basilar atelectasis. Shift of the heart and mediastinum towards the left side of midline. Bilateral adrenal masses. Electronically Signed: Maizn Garber MD at 13:02 EDT , Echocardiogram 02/05/23 14:38 Interpretation Summary The estimated ejection fraction is 70-75% %. Hyperdynamic left ventricle No echocardiographic sign of RV collapse Small to moderate size pericardial effusion No echocardiographic signs of cardiac tamponade noted Large pleural effusion noted In comparison to previous echocardiogram small to moderate size pericardial effusion. Ordering Physician: Les Toro Referring Physician: Av Barros MD Performed By: [facility] RVT and Student
--- NOTE | 2023-02-06 15:47 | CASEMGMT ---
Per RN a referral was made to Hospice. Ivelisse Walker CLINICAL IMPLEMENTATION SPECIALIST [facility]
--- NOTE | 2023-02-06 16:09 | RAO.CON ---
Intake Vital Signs 02/04/23 09:45 02/05/23 10:53 02/05/23 11:21 02/05/23 11:52 02/05/23 12:16 02/05/23 12:31 02/05/23 13:24 02/05/23 16:13 02/05/23 16:17 02/05/23 16:49 02/05/23 17:36 02/05/23 17:47 02/05/23 18:00 02/05/23 19:40 02/05/23 19:48 02/05/23 20:51 02/05/23 21:48 02/05/23 22:32 02/05/23 22:53 02/05/23 23:00 02/06/23 00:00 02/06/23 00:00 02/06/23 00:00 02/06/23 01:00 02/06/23 01:30 02/06/23 02:00 02/06/23 03:00 02/06/23 04:00 02/06/23 05:00 02/06/23 05:17 02/06/23 06:00 Height 5 ft 11 in 5 ft 11 in 5 ft 11 in Weight: 185 lb 201 lb 11.567 oz BMI 25.7 28.1 BP 168/66 H 79/58 L 77/63 L 79/64 L 84/64 L 88/72 L 100/68 94/70 89/43 L 105/79 103/78 89/62 L 92/68 104/66 104/66 104/66 77/58 L 97/69 92/63 93/62 92/63 104/67 Position Supine Semi-Fowlers Semi-Fowlers Semi-Fowlers Semi-Fowlers Semi-Fowlers Semi-Fowlers Semi-Fowlers Semi-Fowlers Semi-Fowlers Semi-Fowlers Semi-Fowlers Respiration 18 23 H 22 H 22 H 24 H 21 H 21 H 18 23 H 28 H 17 25 H 28 H 22 H 24 H 24 H 24 H 19 H 21 H 19 H 14 21 H 19 H 20 H 19 H Pulse 142 H 136 H 129 H 130 H 129 H 130 H 133 H 138 H 140 H 135 H 146 H 142 H 141 H 100 100 100 116 H 108 H 112 H 106 H 111 H 105 H 101 H 104 H Temp 98.6 F 97.6 F L 99.5 F H 100.2 F H 98.5 F 100 F H 101.7 F H 101.7 F H 101.7 F H 101.4 F H 101 F H 101.2 F H 101 F H 100.9 F H 100.8 F H Pulse Oximetry (%) 98 99 100 99 98 97 98 97 94 99 96 100 96 97 96 94 94 94 99 99 99 100 100 99 97 Oxygen Flow Rate (L/min) 6 6 5 5 5 5 5 5 5 5 5 5 02/06/23 06:00 02/06/23 07:00 02/06/23 07:22 02/06/23 07:22 02/06/23 08:00 02/06/23 08:00 02/06/23 09:00 02/06/23 09:16 02/06/23 10:00 02/06/23 11:00 02/06/23 11:54 02/06/23 12:00 02/06/23 12:00 02/06/23 13:00 02/06/23 14:00 02/06/23 15:00 02/06/23 16:00 5 ft 11 in 201 lb 11.567 oz 104/67 98/65 102/68 96/68 111/87 H 110/68 114/72 114/72 112/72 119/76 115/75 114/77 Semi-Fowlers Semi-Fowlers Semi-Fowlers Semi-Fowlers Semi-Fowlers Semi-Fowlers Semi-Fowlers Semi-Fowlers Semi-Fowlers Semi-Fowlers Semi-Fowlers 19 H 22 H 22 H 22 H 24 H 22 H 25 H 24 H 25 H 26 H 29 H 21 H 31 H 104 H 108 H 102 H 110 H 120 H 122 H 124 H 129 H 131 H 132 H 137 H 144 H 141 H 100.8 F H 100.9 F H 100.9 F H 100.8 F H 100.7 F H 100.7 F H 101.7 F H 97 98 95 95 100 99 99 98 98 96 100 100 98 98 4 3 3 2 2 2 2 2 2 2 2 2 Intake Visit Reasons: SEPSIS, L PLEURAL EFFUSION Chief Complaint: met NSCLC Allergies No Known Allergies Allergy (Verified 02/05/23 10:57) Medications folic acid 1 mg tablet 1 mg PO DAILY supplement 01/20/23 [History Confirmed 02/05/23] lactulose 20 gram/30 mL oral solution 20 g (30 mL) PO BID #1,200 mL 01/22/23 [Rx Confirmed 02/05/23] pantoprazole 40 mg tablet,delayed release (Protonix) 40 mg PO DAILY #30 tabs 01/22/23 [Rx Confirmed 02/05/23] hydromorphone 2 mg tablet (Dilaudid) 2 - 4 mg PO Q4H PRN PAIN 01/29/23 [History Confirmed 02/04/23] fentanyl 50 mcg/hr transdermal patch 50 mcg transdermal Q3D #0 ea 01/31/23 [Rx Confirmed 02/05/23] haloperidol 1 mg tablet 1 mg PO TID PRN nausea and vomiting #0 tabs 01/31/23 [Rx Confirmed 02/05/23] hydromorphone 2 mg tablet 2 - 4 mg (1 - 2 x 2 mg) PO Q4H PRN PAIN #0 tabs 01/31/23 [Rx Confirmed 02/05/23] polyethylene glycol 3350 17 gram oral powder packet 17 g PO BID #0 ea 01/31/23 [Rx Confirmed 02/05/23] sennosides 8.6 mg capsule (senna) 8.6 mg PO BID #1 cap 01/31/23 [Rx Confirmed 02/05/23] ondansetron 8 mg disintegrating tablet 8 mg PO Q8H nausea #30 tabs 02/03/23 [Rx Confirmed 02/05/23] Home Medications Acetaminophen (Acetaminophen 650 Mg Suppository) 650 mg RC Q4H PRN PRN PRN Reason: Fever, pain 1-10 Last Admin: 02/06/23 13:32 Dose: 650 mg Albuterol Sulfate (Albuterol 2.5 Mg/3 Ml Vial.Neb.) 2.5 mg INHALATION Q2H PRN PRN PRN Reason: SOB/Wheezing Fentanyl (Fentanyl 50 Mcg Patch) 50 mcg TD Q3D [facility]; Protocol Last Admin: 02/05/23 21:38 Dose: 50 mcg Folic Acid (Folic Acid 1 Mg Tablet) 1 mg PO DAILYCM [facility] Last Admin: 02/06/23 09:10 Dose: Not Given Haloperidol Lactate (Haloperidol Lactate 5 Mg/Ml Vial) 1 mg IV TID PRN PRN PRN Reason: Hiccups Hydromorphone HCl (Hydromorphone 2 Mg Tablet) 2 - 4 mg PO Q4H PRN PRN Reason: PAIN 1-10 Hydromorphone HCl (Hydromorphone Inj 0.2 Mg/Ml Syringe) 0.2 mg IV Q3H PRN PRN PRN Reason: Pain Score 6-10 Sodium Chloride () 250 mls @ 15 mls/hr IV .[id number] PRN PRN Reason: Additional IVPB Infusion Sodium Chloride () 250 mls @ 15 mls/hr IV .[id number] PRN PRN Reason: Saline Flush Piperacillin Sod/Tazobactam (Sod 3.375 gm/ Sodium Chloride) 50 mls @ 12.5 mls/hr IV Q8 [facility] Last Admin: 02/06/23 13:08 Dose: 12.5 mls/hr Vancomycin IV-PHARMACY TO DOSE (1 each/ Sodium Chloride) 500 mls @ 250 mls/hr IV X1 PRN; Protocol PRN Reason: Rx to Dose Pantoprazole Sodium 40 mg/ (Sodium Chloride) 110 mls @ 330 mls/hr IV Q12 [facility] Last Infusion: 02/06/23 10:06 Dose: Infused Dexmedetomidine HCl 400 mcg/ (Sodium Chloride) 100 mls @ 4.575 mls/hr CONT INF .[id number] [facility]; Protocol Last Titration: 02/06/23 13:00 Dose: 0 mcg/kg/hr, 0 mls/hr Vancomycin HCl 1,250 mg/ (Sodium Chloride) 275 mls @ 167 mls/hr IV Q12H [facility] Last Infusion: 02/06/23 12:07 Dose: Infused Lactulose (Lactulose 20 Gm/30 Ml Udc) 20 gm PO BID [facility] Last Admin: 02/06/23 11:07 Dose: Not Given Nutritional Formula (Lactose Free) (Ensure Plus High Protein 120 Ml Liquid) 120 ml PO 4X/DAY [facility] Last Admin: 02/06/23 12:30 Dose: Not Given Ondansetron HCl (Ondansetron 8 Mg Tablet) 8 mg PO Q8 [facility] Last Admin: 02/06/23 12:54 Dose: Not Given Ondansetron HCl (Ondansetron 4 Mg/2 Ml Vial) 4 mg IV Q8H PRN PRN PRN Reason: NAUSEA/VOMITING Polyethylene Glycol (Polyethylene Glycol 3350 17 Gm Packet) 17 gm PO BID [facility] Last Admin: 02/06/23 11:07 Dose: Not Given Prochlorperazine Edisylate (Prochlorperazine 10 Mg/2 Ml Vial) 5 mg IV Q4H PRN PRN PRN Reason: Breakthrough Nausea/Vomiting Senna (Senna Tablet) 1 tablet PO BID [facility] Last Admin: 02/06/23 11:07 Dose: Not Given Sodium Chloride (0.9% Saline Lock 10 Ml Syringe) 10 - 40 ml IV UD PRN PRN Reason: SALINE FLUSH Discontinued Medications Haloperidol (Haloperidol 1 Mg Tablet) 1 mg PO TID PRN PRN Reason: nausea and vomiting Haloperidol (Haloperidol 1 Mg Tablet) 1 mg PO TID PRN PRN Reason: nausea and vomiting Hydromorphone HCl (Hydromorphone 1 Mg/Ml Syringe) 1 mg IV X1 ONE Stop: 02/05/23 17:31 Last Admin: 02/05/23 17:34 Dose: 1 mg Sodium Chloride () 1,000 mls @ 999 mls/hr IV .Q1H1M ONE Stop: 02/05/23 12:29 Last Infusion: 02/05/23 13:51 Dose: Infused Piperacillin Sod/Tazobactam (Sod 4.5 gm/ Sodium Chloride) 100 mls @ 200 mls/hr IV X1 ONE Stop: 02/05/23 12:45 Last Infusion: 02/05/23 13:51 Dose: Infused Sodium Chloride () 1,000 mls @ 999 mls/hr IV .Q1H1M ONE Stop: 02/05/23 14:49 Last Infusion: 02/05/23 17:12 Dose: Infused Sodium Chloride () 1,000 mls @ 999 mls/hr IV .Q1H1M ONE Stop: 02/05/23 17:40 Last Admin: 02/05/23 23:04 Dose: Not Given Sodium Chloride () 1,000 mls @ 200 mls/hr IV .Q5H [facility] Stop: 02/05/23 23:43 Last Infusion: 02/05/23 21:45 Dose: 0 mls/hr Vancomycin HCl 2,000 mg/ (Sodium Chloride) 540 mls @ 250 mls/hr IV X1 ONE Stop: 02/05/23 23:09 Last Infusion: 02/06/23 00:00 Dose: Infused Sodium Chloride () 500 mls @ 999 mls/hr IV .Q31M ONE Stop: 02/05/23 23:28 Last Infusion: 02/06/23 04:25 Dose: Infused Lidocaine HCl (Lidocaine 2% (20 Ml Mdv) 20 Ml Vial) 1 - 15 ml INFILT X1 ONE Stop: 02/06/23 08:51 Last Admin: 02/06/23 13:44 Dose: Not Given Pantoprazole Sodium (Pantoprazole Sodium 40 Mg Tablet) 40 mg PO DAILY [facility] Medical History Acute on chronic respiratory failure with hypoxia Adenocarcinoma of lung, stage 4 Alcohol use Apnea, sleep Arthritis Asthma Back pain Benign skin mole Cancer of left lung Cancer related pain Chondrosternal sprain Chronic coughing CINV (chemotherapy-induced nausea and vomiting) Diastolic hypertension Encounter for education Fatty tumor Former smoker Herpes zoster Hiccups Hoarseness Hypercholesteremia Hyponatremia Hypoxia Keratosis pilaris Lipoma Low serum HDL Maculopapular rash 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 Nausea Rapid weight loss Regional lymph node metastasis present Shortness of breath on exertion Stomatitis Home Medications folic acid 1 mg tablet 1 mg PO DAILY supplement 01/20/23 [History Last Taken 01/28/23] lactulose 20 gram/30 mL oral solution 20 g (30 mL) PO BID #1,200 mL 01/22/23 [Rx Last Taken 01/29/23] pantoprazole 40 mg tablet,delayed release (Protonix) 40 mg PO DAILY #30 tabs 01/22/23 [Rx Last Taken 01/28/23] hydromorphone 2 mg tablet (Dilaudid) 2 - 4 mg PO Q4H PRN PAIN 01/29/23 [History Last Taken 01/29/23 07:30] fentanyl 50 mcg/hr transdermal patch 50 mcg transdermal Q3D #0 ea 01/31/23 [Rx Last Taken 02/02/23] haloperidol 1 mg tablet 1 mg PO TID PRN nausea and vomiting #0 tabs 01/31/23 [Rx Last Taken Unknown] hydromorphone 2 mg tablet 2 - 4 mg (1 - 2 x 2 mg) PO Q4H PRN PAIN #0 tabs 01/31/23 [Rx Last Taken Unknown] polyethylene glycol 3350 17 gram oral powder packet 17 g PO BID #0 ea 01/31/23 [Rx Last Taken 02/03/23] sennosides 8.6 mg capsule (senna) 8.6 mg PO BID #1 cap 01/31/23 [Rx Last Taken Unknown] ondansetron 8 mg disintegrating tablet 8 mg PO Q8H nausea #30 tabs 02/03/23 [Rx Last Taken Unknown] Allergy/AdvReac Type Severity Reaction Status Date / Time No Known Allergies Allergy Verified 02/05/23 10:57 Family History Aunt Cancer paternal - unknown type Sister Lymphoma T-cell Non Hodgkin's Social History household members: spouse Smoking Status: Former smoker Tobacco: How many years used: 8 how long ago did patient quit smoking: quit 30 years ago Diagnosis: Nathaniel Montejo is a 52-year-old male diagnosed with stage IVB lung adenocarcinoma status post chest x-ray (10/22/2022), CT-guided biopsy left lung lesion (11/13/2022), PET scan (12/03/2022), and brain MRI (12/18/2022).? He started carboplatin/Alimta on 12/26/2022 and due to worsening pain and shortness of breath was admitted to the hospital on 01/20/[address] chest demonstrated evidence of disease progression with increased left pleural effusion, obstruction with upper and lower lung collapse and concern for postobstructive pneumonia. History of Present Illness: 10/22/2022: Chest x-ray was completed due to having cough.? This demonstrated evidence of a hilar mass on the left with postobstructive pneumonitis in left upper lobe, correlation with CT is recommended. 11/13/2022: Patient completed CT-guided biopsy of the left lung lesion.? Pathology demonstrated non-small cell carcinoma with extensive necrosis, favoring metastatic adenocarcinoma consistent with lung primary 12/03/2022: PET scan was performed.? This demonstrated increased radiopharmaceutical concentration defined in the left upper hemithorax pulmonary parenchyma left upper lobe for filling quantitative criteria for viable neoplasm.? There is also viable neoplasm demonstrated in the mediastinal structures and bilateral thoracic perihilum.? There is increased uptake distributed to the bilateral adrenal glands as well as retroperitoneal hypermetabolic abdominal adenopathy.? There is also evidence for diffuse appendicular and axial skeletal metastatic disease. 12/18/2022: Brain MRI was performed.? This demonstrated a 3 x 5 mm nodular enhancing lesion with mild surrounding edema in the right occipital lobe seen on image 4 of series 11 image 53 of series 12.? This is suspicious for metastatic disease.? No other lesions are noted. 12/26/2022: received first cycle of carbo/Alimta 01/20/2023: CT chest with contrast was performed.? This demonstrated a left upper lung/perihilar and superior mediastinal confluent mass measuring 13 x 12 cm increased in size from the prior study in November, this is replaced in the left upper lobe and in continuity with the left mediastinum slightly narrowing the aortic arch and obliterating the left upper lobe bronchus.? There is moderate layering left pleural effusion with compressive atelectasis of the left lower lobe.? There is medial right upper lobe and lateral right middle lobe centrilobular nodular airspace disease.? There is also interval enlargement of the bilateral adrenal masses and upper abdominal adenopathy. Radiation Treatment History: Plan was made to complete palliative radiation therapy to the large central lung mass causing left lung collapse as well as the local spine disease at the T5-T7 levels consisting of 3000 cGy in 10 fractions. He completed 8 of the planned 10 fractions but due to clinical decline palliative radiation was stopped and patient enrolled in hospice. Interval History: Patient was admitted yesterday due to having hypotension and was fairly lethargic. Currently in the ICU and has tachycardia, tachypnea. Very lethargic and unable to consistently interact. Denies pain. Assessment & Plan Assessment/Plan (1) Adenocarcinoma of lung, stage 4: QUALIFIERS: Laterality: left Qualified Code(s): C34.92 - Malignant neoplasm of unspecified part of left bronchus or lung PLAN: Plan Plan of Care: I had a discussion with both the patient and many of his family members regarding the current situation. The left lung remains collapsed and he has large volume pleural effusion. He has completed 8 of the planned 10 fractions of palliative radiation and throughout the course of his treatment his clinical status has declined. He has increased fatigue and weight loss, now he has fevers and tachycardia as well as tachypnea and he has been fairly lethargic for the last 2 days. Given his clinical decline I do believe that further radiation therapy would be futile and if anything could cause more harm to put him through further treatment and he also is not currently a candidate for any systemic therapy. So at this time we discussed the option of hospice care which I do believe is the most appropriate option. He is currently meeting with the hospice team and planning to enroll in hospice care. At this time we are going to stop radiation treatments and I informed his family to call me with any further questions or concerns. Thank you for allowing me to participate in the management and care of your patient. If I may answer any questions in the interim, please do not hesitate to contact me at any time. Randy Montes DO, MS [employer], Department of Radiation Oncology [facility] Coding Level of Care Code Off vis,new,level 5 Exam Problem Focused Diagnoses Adenocarcinoma of left lung, stage 4 C34.92 Laterality: left
--- NOTE | 2023-02-06 16:42 | PCM.DC ---
Discharge Instructions Diet Discharge Diet: No restrictions Activity Discharge Activity: - (as tolerated with assistance. ) Follow Up Care Test Results: Test results from this visit will be discussed in further detail at your follow-up appointment, if applicable. Discharge Plan Admission Admit Date/Time: 02/05/23 17:46 Primary Reason for Your Visit: Pleural effusion. Lung cancer. Attending Provider: Av Izaguirre Primary Care Provider: Av Barros Consulting Providers: Anthony Mejias; Mark Mixon; Denis Bee; Duglas Gardner; Shobha Chowdhury NP; Randy Montes Discharge Orders/Prescriptions Prescriptions: Continued fentanyl 50 mcg/hr Patch 72 Hour 50 mcg transdermal Q3D Qty: 0 0RF Patient Comments: due for replacement tonight. 02/05 haloperidol 1 mg Tablet 1 mg PO TID PRN (Reason: nausea and vomiting) Qty: 0 0RF hydromorphone 2 mg Tablet 2 - 4 mg PO Q4H PRN (Reason: PAIN) Qty: 0 0RF senna 8.6 mg capsule 8.6 mg PO BID Qty: 1 0RF ondansetron 8 mg tablet,disintegrating 8 mg PO Q8H Qty: 30 0RF Discontinued folic acid 1 mg tablet 1 mg PO DAILY Patient Comments: TAKE 1 TABLET BY MOUTH ONCE DAILY pantoprazole [Protonix] 40 mg tablet,delayed release (DR/EC) 40 mg PO DAILY Qty: 30 0RF lactulose 20 gram/30 mL solution 20 g PO BID Qty: 1200 0RF Rx Instructions: take one to two times daily for treatment of constipation hydromorphone [Dilaudid] 2 mg tablet 2 - 4 mg PO Q4H PRN (Reason: PAIN) Rx Instructions: 2-4 mg every four hours as needed for breakthrough pain-May take with 1 Aleve, with maximal amount of Aleve per day at 4 polyethylene glycol 3350 17 gram Powder In Packet 17 g PO BID Qty: 0 0RF Referrals / Follow Up: Av Barros MD [Primary Care Provider] - Disposition Disposition (needs filled in before D/C Order can be placed): Hospice in Medical Facility
--- NOTE | 2023-02-06 16:46 | DS.PCM_ITS ---
Providers Date of Admission: 02/05/23 Primary Care Physician: Dr. Av Barros MD Consultations 02/05/23 18:44 Consult: Call Or Contact Centre Coach / Pulmonary Medicine Routine Consulting Provider: [facility] Reason for Consult: pleural effusion EMERGENT Consult: No Notified: Yes Date Notified: 02/05/23 Time Notified: 17:53 Method of Notification: Verbal 02/06/23 12:48 Consult: Hospice / Palliative Care Routine Consulting Provider: [facility] Reason for Consult: lung cancer EMERGENT Consult: No Notified: No Date Notified: 02/06/23 Time Notified: 12:48 02/06/23 13:57 Consult: Radiation Oncology Routine Consulting Provider: Randy Montes Reason for Consult: lung cancer EMERGENT Consult: No Notified: Yes Date Notified: 02/06/23 Time Notified: 13:57 Method of Notification: Verbal Reason For Visit: SEPSIS, L PLEURAL EFFUSION Diagnosis Discharge Diagnosis (1) Adenocarcinoma of lung, stage 4: Status: Acute Code(s): C34.90 - Malignant neoplasm of unspecified part of unspecified bronchus or lung Qualifiers: Laterality: left Qualified Code(s): C34.92 - Malignant neoplasm of unspecified part of left bronchus or lung Plan: Has only undergone 1 chemotherapy. Does have a port in place Discussed with Dr. Montes given deteriorating status. Plan to hold on XRT at this time. Dr. Montes spoke with family today and said they ok with hospice consult, but unsure if they will proceed with hospice care. Given dramatically deteriorating state, not a candidate for chemotherapy. Plan VTE prophylaxis with SCD Prognosis: Poor CODE STATUS: Addressed with the patient and his . He is noncommittal at this time and the has not formally asked him himself. Told him that we will leave him at full code at this time but they can change her mind at any p oint. DW and other family members at bedside today. Encouraged symptom control. Medications at Discharge Home Medications fentanyl 50 mcg/hr transdermal patch 50 mcg transdermal Q3D #0 ea 01/31/23 haloperidol 1 mg tablet 1 mg PO TID PRN nausea and vomiting #0 tabs 01/31/23 hydromorphone 2 mg tablet 2 - 4 mg (1 - 2 x 2 mg) PO Q4H PRN PAIN #0 tabs 01/31/23 sennosides 8.6 mg capsule (senna) 8.6 mg PO BID #1 cap 01/31/23 ondansetron 8 mg disintegrating tablet 8 mg PO Q8H nausea #30 tabs 02/03/23 Hospital Course Operations None Procedures None Summary of Care Provided Minutes Spent on Discharge: 45 Hospital Course: Presents with weakness and shortness of breath. Patient was initially hypotensive. Oxygenation remained okay but patient was noted to have a large pleural effusion as well as pericardial effusion. 2D echocardiogram did not show any clinical evidence of tamponade. Patient has a stage IV lung cancer. Patient had had a port but had yet to receive chemotherapy. Patient had under gone radiation therapy but has gotten worse. Consultations were placed to pulmonary, radiation oncology and medical oncology. The consensus is given the patient's rapidly deteriorating status, he would not be a candidate for systemic chemotherapy at this point and the fact that he has not responded with radiation treatment no additional treatment options are available. Lengthy conversations were held with all the specialist as well as the hospitalist in regards to the patient's overall poor performance and prognosis. Family was made aware of this and met with hospice and were agreeable to going to the inpatient hospice unit. Medical Records Data Medical Nutrition Assessment Dietitian: Malnutrition Criteria Met Start: 02/06/23 09:29 Freq: Status: Active Protocol: Document 02/06/23 09:29 (Rec: 02/06/23 09:29 [id number]) Nutrition Malnutrition Evidence of Malnutrition Exists Yes Malnutrition (severe): Chronic Evidenced By Suboptimal Energy Intake ( Severe),Weight Loss (Severe), Physical Changes (Severe) Intake Problem Increased Nutrient Needs (specify) Etiology calories/protein related to increased demand Signs/Symptoms as evidenced by stage 4 lung cancer with mets on radiation and chemo therapy Status Active Problem Clinical Problem Chronic Disease or Condition Related Malnutrition Etiology severe related to stage 4 lung cancer with mets to adrenal gland, bone, and brain Signs/Symptoms as evidenced by <75% PO intake of estimated energy needs for >1 month, 35.3lbs (15.7%) weight loss in 3 months, and severe fat and muscle loss to temporal and orbital regions Status Active Problem Recommendation Dietitian Recommendations/Changes ADAT to Regular diet when medically able to optimize oral intakes. Continue 120mL EPHP 4x when diet is advanced to provide supplemental energy Weight / BMI Weight Weight: 91.5 kg Body Mass Index (BMI) 28.1 ABG / Lab / Microbiology Data 02/06/23 08:00 02/06/23 08:00 Laboratory: Laboratory Results - last 24 hr 02/05/23 11:17: Diff Path Review Reviewed 02/05/23 20:31: MRSA (PCR) Negative 02/05/23 23:35: Urine Color Yellow, Urine Clarity Sl. Cloudy, Urine pH 5.0, Ur Specific [place] 1.025, Urine Protein 100 H, Urine Glucose (UA) Normal, Urine Ketones 5 H, Urine Occult Blood 25 H, Urine Nitrite Negative, Urine Bilirubin 1 H, Urine Urobilinogen 1 H, Ur Leukocyte Esterase 25 H, Urine RBC 0-5 SEEN, Urine WBC 0-5 SEEN, Ur Squamous Epith Cells 0-5 SEEN, Calcium Oxalate Crystal RARE, Amorphous Sediment 2+, Urine Bacteria 3+, Hyaline Casts 0-5 SEEN, Fine Granular Casts 0-5 SEEN, Urine Mucus 0 SEEN 02/05/23 23:47: Ammonia 11.0 02/06/23 08:00: WBC 11.3 H, RBC 2.54 L, Hgb 7.2 L, Hct 23.6 L, MCV 92.9, MCH 28.3, MCHC 30.5 L, RDW Std Deviation 58.3 H, RDW Coeff of Angelica 17.7 H, Plt Count 123 L, MPV 9.0, Neut % (Auto) Not Reportable, Absolute Neuts (auto) 8.0 H, Absolute Lymphs (auto) 0.60 L, Total Counted 100, Neutrophils % (Manual) 68, Band Neutrophils % 3, Lymphocytes % (Manual) 5 L, Monocytes % (Manual) 14 H, Eosinophils % (Manual) 2, Metamyelocytes % 6 H, Myelocytes % 1 H, Promyelocytes % 1 H, Diff Path Review Reviewed, Platelet Estimate SLT DEC, RBC Morphology NORM C+C, PT 16.5 H, INR 1.3, Sodium 133 L, Potassium 5.6 H, Chloride 99, Carbon Dioxide 30.0, Anion Gap 4 L, BUN 45 H, Creatinine 1.90 H, Estim Creat Clear Calc 48.99, Est GFR (MDRD) Af Amer 48 L, Est GFR (MDRD) Non-Af 40 L, BUN/Creatinine Ratio 23.7 H, Glucose 83, Calcium 12.3 H ABG: ABG 02/05/23 20:31 Specimen Type ART Sample Site R Radial pH 7.61 H* Bicarbonate Actual 27.8 H Total CO2 29 Base Excess 7 H O2 Saturation 98 ABG pCO2 27.5 L ABG pO2 85 Yosef Test Positive O2 Delivery Device Cannula Liter Flow 2.0 Crit Call To/Read Back Yes D/C Instructions Discharge Diet: No restrictions Meaningful Use Info Meaningful Use Diagnoses (Choose all that apply): None applicable Discharge Plan Admission Admit Date/Time: 02/05/23 17:46 Primary Reason for Your Visit: Pleural effusion. Lung cancer. Attending Provider: Av Izaguirre Primary Care Provider: Av Barros Consulting Providers: Anthony Mejias; Mark Mixon; Denis Bee; Duglas Gardner; Shobha Chowdhury NP; Randy Montes Discharge Orders/Prescriptions Prescriptions: Continued fentanyl 50 mcg/hr Patch 72 Hour 50 mcg transdermal Q3D Qty: 0 0RF Patient Comments: due for replacement tonight. 02/05 haloperidol 1 mg Tablet 1 mg PO TID PRN (Reason: nausea and vomiting) Qty: 0 0RF hydromorphone 2 mg Tablet 2 - 4 mg PO Q4H PRN (Reason: PAIN) Qty: 0 0RF senna 8.6 mg capsule 8.6 mg PO BID Qty: 1 0RF ondansetron 8 mg tablet,disintegrating 8 mg PO Q8H Qty: 30 0RF Discontinued folic acid 1 mg tablet 1 mg PO DAILY Patient Comments: TAKE 1 TABLET BY MOUTH ONCE DAILY pantoprazole [Protonix] 40 mg tablet,delayed release (DR/EC) 40 mg PO DAILY Qty: 30 0RF lactulose 20 gram/30 mL solution 20 g PO BID Qty: 1200 0RF Rx Instructions: take one to two times daily for treatment of constipation hydromorphone [Dilaudid] 2 mg tablet 2 - 4 mg PO Q4H PRN (Reason: PAIN) Rx Instructions: 2-4 mg every four hours as needed for breakthrough pain-May take with 1 Aleve, with maximal amount of Aleve per day at 4 polyethylene glycol 3350 17 gram Powder In Packet 17 g PO BID Qty: 0 0RF Referrals / Follow Up: Av Barros MD [Primary Care Provider] - Disposition Disposition (needs filled in before D/C Order can be placed): Hospice in Medical Facility Charges/Coding Visit Charges Inpatient E&M: 13246 Disch Hosp >30min
[2023-02-06] MEDS: HYDROmorphone 1 MG/ML Syringe IV (20:16)
[2023-02-06] MEDS: 0.9% Saline Lock 10 ML Syringe IV (20:16)
--- NOTE | 2023-02-06 21:13 | NURSING ---
[facility] here to transport pt to [facility]. Handoff given. Family present at bedside for departure.
== END 2023-02-06 21:18 | disposition hospice, inpatient (51) | DRG 193 ==
LOC: ED 16:25 → PCU 18:47 → ICU 02-06 12:22
PROVIDERS: Family Medicine; Emergency Provider Emergency Medicine; PCP Family Medicine
DX: J18.9 Pneumonia, unspecified organism (principal); J96.21 Acute and chronic respiratory failure with hypoxia; G93.6 Cerebral edema; G93.40 Encephalopathy, unspecified; I31.39 Other pericardial effusion (noninflammatory); C77.1 Secondary and unspecified malignant neoplasm of intrathoracic lymph nodes; C34.92 Malignant neoplasm of unspecified part of left bronchus or lung; C77.2 Secondary and unspecified malignant neoplasm of intra-abdominal lymph nodes; C79.70 Secondary malignant neoplasm of unspecified adrenal gland; C74.90 Malignant neoplasm of unspecified part of unspecified adrenal gland; C79.51 Secondary malignant neoplasm of bone; N17.9 Acute kidney failure, unspecified; J90 Pleural effusion, not elsewhere classified; E78.00 Pure hypercholesterolemia, unspecified; E83.52 Hypercalcemia; E87.5 Hyperkalemia; J98.09 Other diseases of bronchus, not elsewhere classified; Z51.5 Encounter for palliative care; Z87.891 Personal history of nicotine dependence; Z79.891 Long term (current) use of opiate analgesic; Z79.2 Long term (current) use of antibiotics
CPT/HCPCS: 36591; 36600; 71045; 71250; 80048; 80053; 81001; 82140; 82803; 83605; 84484; 85025; 85610; 85730; 87040; 87086; 87641; 93005; 93308; 94002; 94003; 94762; 99285; J7030; J7040; J7050; A4216